=== PATIENT | male | born 1960 | race Caucasian/White ===

== ENCOUNTER 2016-05-04 05:45 | Day surgery (SDC) | payer MEDICARE, SELFPAY ==
[2016-05-04] MEDS ORDERED: Lactated Ringers 1,000 ML IV SCH (06:00)
[2016-05-04 06:24] VITALS: O2SAT 98
[2016-05-04] MEDS ORDERED: Lactated Ringers 1,000 ML IV ONE (07:32)
[2016-05-04] MEDS ORDERED: Ketamine HCl 50 MG/ML IJ ONE (08:00)
[2016-05-04] MEDS ORDERED: DIPRIVAN 200 MG/20 ML IV ONE (08:00)
--- NOTE | 2016-05-04 08:09 | OP ---
SURGERY DATE/TIME: 05/04/2016702 PREOPERATIVE DIAGNOSIS: Rectal bleeding. POSTOPERATIVE DIAGNOSES: 1) Normal EGD. 2) External hemorrhoids. PROCEDURES: 1) EGD. 2) Colonoscopy. SURGEON: Omar Salmon M.D. ANESTHESIA: MAC by Ean Giron CRNA. ESTIMATED BLOOD LOSS: None. SPECIMENS: None. DESCRIPTION OF PROCEDURE: After informed written consent was obtained, the patient was taken to the endoscopy suite. Bite block was inserted and he underwent monitored anesthesia. The endoscope was inserted in the posterior oropharynx and direct visualization the esophagus was traversed. The esophageal mucosal had a normal appearance free of any lesions or defects. The gastroesophageal junction likewise appeared normal upon entering the gastric cavity. The gastric cavity had a normal rugated gastric mucosa free of any lesions or defects. Pylorus was traversed and the first and second portions of the duodenum were within normal limits. Upon withdrawal again all mucosal surfaces were inspected and noted to be free of any lesions or defects. The scope was removed and the scopes were switched. A digital rectal exam showed normal sphincter tone with moderate external hemorrhoids. The colonoscope was then inserted into the rectum and sequentially the entire colonic mucosa was traversed. The ileocecal valve was verified with direct visualization. Upon withdrawal careful mucosal inspection revealed no obvious mucosal abnormalities. Prep was noted to be fair. Prior to withdrawal retroflexion was performed and showed no significant internal lesions. The scope was removed and the patient was transferred to the recovery room in excellent condition.
[2016-05-04 08:53] VITALS: BP 149/90; PULSE 59
== END 2016-05-04 08:57 | disposition home or self-care (01) ==
LOC: SDC 05:45
PROVIDERS: ATTEND Family Medicine
PROC: 0DJ08ZZ Inspection of Upper Intestinal Tract, Via Natural or Artificial Opening Endoscopic (ICD-10-PCS; principal; 2016-05-04)
PROC: 0DJD8ZZ Inspection of Lower Intestinal Tract, Via Natural or Artificial Opening Endoscopic (ICD-10-PCS; 2016-05-04)
DX: K62.5 Hemorrhage of anus and rectum (principal); K64.8 Other hemorrhoids
CPT/HCPCS: 00740; J2704

== ENCOUNTER 2016-08-20 22:52 | Observation (INO) | payer MEDICARE, SELFPAY ==
[2016-08-21] MEDS ORDERED: Sodium Chloride 0.9% 1000 ML 1,000 ML ONE ×2 (00:02→03:30)
--- NOTE | 2016-08-21 00:24 | ERPHSYRPT ---
- History of Present Illness Time Seen by Provider: 08/21/16 00:17 Historian: patient, family Exam Limitations: no limitations Patient Subjective Stated Complaint: vomitting , chest pain, and sinuas ache times 3 months, back pain Triage Nursing Assessment: pt alert and oriented x3, lung sounds clear, patietn sweating profusesly came to ER with vomitting and while in waiting room began sweating and started having chest pain, states he has chest pain frequently at home. patients pulse equal bilateral radius. bowel sounds present x4 , pupils perrla3, patient weak and states hes been trying to drink but unablet o keep food or fluids down Physician History: pt has had prior heart but no CP at this time just sweating and chills and urinary problems and dizziness; denies actual abdominal pain but has tenderness and hx prostate concerns Timing/Duration: day(s), gradual onset Activities at Onset: none Quality: fullness, sharpness, tightness Location: substernal Chest Pain Radiation: no radiation Severity of Pain-Max: moderate Severity of Pain-Current: none Modifying Factors: Improves With: nothing Associated Symptoms: vomiting, abdominal pain, dizziness Nitro Today/Relief: no nitro taken today Aspirin Treatment Today: 81 mg x 1, provided at home Allergies/Adverse Reactions: gabapentin Allergy (Severe, Verified 05/04/16 06:04) Tightness of Throat rash and itch morphine Allergy (Severe, Verified 05/04/16 06:04) Rapid Heart Beat states "like anxiety" Home Medications: Triamterene/Hydrochlorothiazid [Triamterene-Hctz 37.5-25 mg Cp] 0.5 tab PO DAILY 04/06/12 [History] Hydrocodone/APAP 10/325 mg [[place] 10/325 MG Tablet] 1 tab PO QID 04/06/13 [History] Carvedilol 3.125 mg [Coreg 3.125 MG] 3.125 mg PO BID 03/03/16 [History] Carisoprodol 350 mg [Soma 350 mg] 350 mg PO QID 05/02/16 [History] Trazodone HCl 100 mg PO HS 05/02/16 [History] Albuterol Sulfate [Proventil Hfa] 1 ea IH UD 05/04/16 [History] Lisinopril 10 mg [Zestril 10 MG] 5 mg PO DAILY 08/20/16 [History] Smz/Tmp Ds Tablet [Bactrim Ds Tablet] 1 udtab PO BID 08/20/16 [History] Hx Tetanus, Diphtheria Vaccination/Date Given: Yes Hx Influenza Vaccination/Date Given: No Hx Pneumococcal Vaccination/Date Given: No Immunizations Up to Date: Yes - Review of Systems Constitutional: Fever, Chills, Weakness Respiratory: No Symptoms Cardiac: Chest Pain Abdominal/Gastrointestinal: Abdominal Pain, Nausea, Vomiting, Appetite Changes Genitourinary Symptoms: Urgency Musculoskeletal: No Symptoms Skin: No Symptoms - Past Medical History Pertinent Past Medical History: Yes Neurological History: No Pertinent History ENT History: No Pertinent History Cardiac History: High Cholesterol, Hypertension Respiratory History: Asthma Endocrine Medical History: No Pertinent History Musculoskeletal History: Fractures, Osteoporosis GI Medical History: Colitis, Ulcer History: No Pertinent History Psycho-Social History: No Pertinent History Male Reproductive Disorders: No Pertinent History - Past Surgical History Past Surgical History: Yes Neuro Surgical History: No Pertinent History Cardiac: No Pertinent History Respiratory: No Pertinent History Gastrointestinal: Appendectomy Genitourinary: No Pertinent History Musculoskeletal: Orthopedic Surgery, Other Male Surgical History: Vasectomy Other Surgical History: pt has plates to ankle, 6 lower back surgeries, 9 right arm surgeries, 3 left arm surgeries, 2 neck fusions and one cervical discectomy. - Social History Smoking Status: Never smoker Exposure to second hand smoke: No Drug Use: none Patient Lives Alone: No - Nursing Vital Signs Nursing Vital Signs: Initial Vital Signs Temperature 99 F Temperature Source Rectal Pulse Rate [Bilateral Radial] 88 Pulse Rate 86 Respiratory Rate 20 Blood Pressure [Right Arm] 109/71 Pain Intensity 4 - Physical Exam General Appearance: no apparent distress, alert Eye Exam: PERRL/EOMI, eyes nml inspection Ears, Nose, Throat Exam: normal ENT inspection, moist mucous membranes Neck Exam: normal inspection, non-tender, supple, full range of motion Respiratory Exam: normal breath sounds, lungs clear, No respiratory distress Cardiovascular Exam: regular rate/rhythm, normal heart sounds Gastrointestinal/Abdomen Exam: soft, tenderness, No mass Back Exam: normal inspection, No CVA tenderness, No vertebral tenderness Extremity Exam: normal inspection, normal range of motion Neurologic Exam: alert, oriented x 3, cooperative, normal mood/affect, sensation nml, No motor deficits Skin Exam: normal color, warm, diaphoresis SpO2 Interpretation: normal SpO2: 99 Oxygen Delivery: Room Air - Course Nursing assessment & vital signs reviewed: Yes EKG Interpreted by Me: Sinus Rhythm, NORMAL AXIS, NORMAL INTERVALS, Non- specific ST Changes - CT Exams Abdomen/Pelvis CT Interpretation: Tele-radiologist Report, No appendicitis, Other (no AAA) Ordered Tests: Active Orders 24 hr Category Date Time Status EKG-ER Only STAT Care 08/21/16 00:29 Active IV Insertion STAT Care 08/21/16 00:29 Active NPO (ED) STAT Care 08/21/16 00:29 Active Rectal Temperature STAT Care 08/21/16 00:31 Active ABDOMEN AND PELVIS W/0 CONTRAS [CT] Stat Exams 08/21/16 00:30 Taken AMYLASE Stat Lab 08/21/16 00:00 Completed CBC W DIFF Stat Lab 08/21/16 00:00 Completed CMP Stat Lab 08/21/16 00:00 Completed CULTURE,URINE Stat Lab 08/21/16 01:27 Received LIPASE Stat Lab 08/21/16 00:00 Completed Lactic Acid Stat Lab 08/21/16 00:29 Completed TROPONIN Stat Lab 08/21/16 00:00 Completed UA W/ MICROSCOPIC Stat Lab 08/21/16 01:27 Completed Medication Summary Generic Name Dose Route Start Last Admin Trade Name Freq PRN Reason Stop Dose Admin Sodium Chloride 1,000 mls @ 999 mls/hr 08/21/16 00:45 08/21/16 00:40 Sodium Chloride 0.9% 1000 Ml IV 08/21/16 03:45 999 mls/hr .Q1H1M ANTHONY Administration Discontinued Medications Generic Name Dose Route Start Last Admin Trade Name Freq PRN Reason Stop Dose Admin Famotidine 20 mg 08/21/16 00:29 08/21/16 00:39 Pepcid 20 Mg Vial IV 08/21/16 00:30 20 mg STAT ONE Administration Famotidine Confirm 08/21/16 00:37 Pepcid 20 Mg Vial Administered 08/21/16 00:38 Dose 20 mg IV .STK-MED ONE Hydromorphone HCl 1 mg 08/21/16 00:48 08/21/16 00:51 Hydromorphone 1 Mg/Ml Ampule IV 08/21/16 00:49 1 mg STAT ONE Administration Hydromorphone HCl Confirm 08/21/16 00:51 Hydromorphone 1 Mg/Ml Ampule Administered 08/21/16 00:52 Dose 1 mg .ROUTE .STK-MED ONE Sodium Chloride Confirm 08/21/16 00:02 Sodium Chloride 0.9% 1000 Ml Administered 08/21/16 00:03 Dose 1,000 mls @ ud .ROUTE .STK-MED ONE Ceftriaxone Sodium/Dextrose 1 g in 50 mls @ 100 mls/hr 08/21/16 00:31 00:43 Rocephin 1 Gm-D5w 50 Ml Bag IV 08/21/16 01:00 100 mls/hr STAT STA Administration Ceftriaxone Sodium/Dextrose Confirm 08/21/16 00:42 Rocephin 1 Gm-D5w 50 Ml Bag Administered 08/21/16 00:43 Dose 1 g in 50 mls @ ud IV .STK-MED ONE Ondansetron HCl 4 mg 08/21/16 00:29 08/21/16 00:39 Zofran 4 Mg/2 Ml Vial IV 08/21/16 00:30 4 mg STAT ONE Administration Ondansetron HCl Confirm 08/21/16 00:36 Zofran 4 Mg/2 Ml Vial Administered 08/21/16 00:37 Dose 4 mg .ROUTE .STK-MED ONE Pantoprazole Sodium 40 mg 08/21/16 00:29 08/21/16 00:39 Protonix 40mg Tablet PO 08/21/16 00:30 40 mg STAT ONE Administration Pantoprazole Sodium Confirm 08/21/16 00:37 Protonix 40mg Tablet Administered 08/21/16 00:38 Dose 40 mg .ROUTE .STK-MED ONE Lab/Rad Data: Laboratory Result Diagrams 08/21/16 00:00 08/21/16 00:00 Laboratory Results 08/21/16 08/21/16 08/21/16 Range/Units 01:27 00:29 00:00 WBC (4.0-10.5) K/mm3 RBC (4.1-5.6) M/mm3 Hgb (12.5-18.0) gm/dl Hct (42-50) % MCV (78-100) fl MCH (26-32) pg MCHC (32-36) g/dl RDW (11.5-14.0) % Plt Count (150-450) K/mm3 MPV (6-9.5) fl Gran % (36.0-66.0) % Lymphocytes % (24.0-44.0) % Monocytes % (0.0-12.0) % Eosinophils % (0.00-5.0) % Basophils % (0.0-0.4) % Basophils # (0-0.4) Sodium 135 L (136-145) mEq/L Potassium 5.3 H (3.5-5.1) mEq/L Chloride 98 (98-107) mEq/L Carbon Dioxide 24.8 (21-32) mEq/L Anion Gap 17.3 H (5-15) MEQ/L BUN 16 (9-20) mg/dL Creatinine 2.09 H (0.55-1.30) mg/dl Estimated GFR 35 ML/MIN Glucose 128 H (70-110) MG/DL Lactic Acid 1.5 (0.4-2.0) Calcium 9.8 (8.5-10.1) mg/dL Total Bilirubin 0.30 (0.2-1.0) mg/dL AST 23 (15-37) U/L ALT 28 (12-78) U/L Alkaline Phosphatase 97 (46-116) U/L Troponin I < 0.017 (0.000-0.056) ng/ml Serum Total Protein 8.4 H (6.4-8.2) gm/dL Albumin 4.7 (3.4-5.0) g/dL Amylase 61 (25-115) U/L Lipase 133 (73-393) U/L Ur Collection Type VOID Urine Color YELLOW (YELLOW) Urine Appearance CLEAR (CLEAR) Urine pH 5.0 (5-6) Ur Specific [place] 1.020 (1.005-1.025) Urine Protein 30 (Negative) Urine Ketones NEGATIVE (NEGATIVE) Urine Blood NEGATIVE (0-5) Sean/ul Urine Nitrite NEGATIVE (NEGATIVE) Urine Bilirubin NEGATIVE (NEGATIVE) Urine Urobilinogen NORMAL (0-1) mg/dL Ur Leukocyte Esterase NEGATIVE (NEGATIVE) Urine Microscopic RBC 0-2 (0-2) /HPF Urine Microscopic WBC 2-5 (0-5) /HPF Ur Epithelial Cells MODERATE (FEW) /HPF Urine Bacteria MODERATE (NEGATIVE) /HPF Hyaline Casts 2-5 (0-2) /LPF Urine Mucus MODERATE (NEGATIVE) /HPF Urine Glucose NEGATIVE (NEGATIVE) mg/dL Specimen Received 08/21/16 0125 08/21/16 Range/Units 00:00 WBC 12.5 H (4.0-10.5) K/mm3 RBC 4.70 (4.1-5.6) M/mm3 Hgb 14.7 (12.5-18.0) gm/dl Hct 43.7 (42-50) % MCV 93.0 (78-100) fl MCH 31.3 (26-32) pg MCHC 33.6 (32-36) g/dl RDW 12.6 (11.5-14.0) % Plt Count 331 (150-450) K/mm3 MPV 9.8 H (6-9.5) fl Gran % 65.5 (36.0-66.0) % Lymphocytes % 22.7 L (24.0-44.0) % Monocytes % 9.8 (0.0-12.0) % Eosinophils % 1.8 (0.00-5.0) % Basophils % 0.2 (0.0-0.4) % Basophils # 0.02 (0-0.4) Sodium (136-145) mEq/L Potassium (3.5-5.1) mEq/L Chloride (98-107) mEq/L Carbon Dioxide (21-32) mEq/L Anion Gap (5-15) MEQ/L BUN (9-20) mg/dL Creatinine (0.55-1.30) mg/dl Estimated GFR ML/MIN Glucose (70-110) MG/DL Lactic Acid (0.4-2.0) Calcium (8.5-10.1) mg/dL Total Bilirubin (0.2-1.0) mg/dL AST (15-37) U/L ALT (12-78) U/L Alkaline Phosphatase (46-116) U/L Troponin I (0.000-0.056) ng/ml Serum Total Protein (6.4-8.2) gm/dL Albumin (3.4-5.0) g/dL Amylase (25-115) U/L Lipase (73-393) U/L Ur Collection Type Urine Color (YELLOW) Urine Appearance (CLEAR) Urine pH (5-6) Ur Specific [place] (1.005-1.025) Urine Protein (Negative) Urine Ketones (NEGATIVE) Urine Blood (0-5) Sean/ul Urine Nitrite (NEGATIVE) Urine Bilirubin (NEGATIVE) Urine Urobilinogen (0-1) mg/dL Ur Leukocyte Esterase (NEGATIVE) Urine Microscopic RBC (0-2) /HPF Urine Microscopic WBC (0-5) /HPF Ur Epithelial Cells (FEW) /HPF Urine Bacteria (NEGATIVE) /HPF Hyaline Casts (0-2) /LPF Urine Mucus (NEGATIVE) /HPF Urine Glucose (NEGATIVE) mg/dL Specimen Received - Progress Progress: improved, re-examined Air Movement: good Progress Note: 08/21/16 02:50 pt improved but continues to have severe nausea and some pain; discussed with Dr. Sifuentes and will place pt in hosp for observation 08/21/16 02:51 no abd tenderness Blood Culture(s) Obtained: No Antibiotics given: Yes Discussed with : Maria Will see patient in: hospital (observation) Counseled pt/family regarding: lab results, diagnosis, need for follow-up, rad results - Departure Time of Disposition: 02:52 Departure Disposition: Observation Clinical Impression: intractable back pain and nausea Condition: Good Critical Care Time: No
[2016-08-21] MEDS ORDERED: Protonix 40MG Tablet PO ONE (00:29)
[2016-08-21] MEDS ORDERED: Pepcid 20 MG VIAL IV ONE ×2 (00:29→00:37)
[2016-08-21] MEDS ORDERED: Zofran 4 MG/2 ML VIAL IV ONE (00:29)
[2016-08-21] MEDS ORDERED: ROCEPHIN 1 Gm-D5w 50 ml Bag** 1 G/50 ML IVPB IV STA (00:31)
[2016-08-21] MEDS ORDERED: Zofran 4 MG/2 ML VIAL ONE (00:36)
[2016-08-21] MEDS ORDERED: Protonix 40MG Tablet ONE (00:37)
[2016-08-21] MEDS ORDERED: Sodium Chloride 0.9% 1000 ML 2,000 ML ONE (00:38)
[2016-08-21] MEDS: Sodium Chloride 0.9% 1000 ML 1,000 ML IV SCH ×5 (00:39→16:44)
[2016-08-21 00:42] LABS: BASOPHIL % 0.2 % (0.0-0.4); Eosinophil % 1.8 % (0.00-5.0); Granulocytes % 65.5 % (36.0-66.0); Lymphocytes % 22.7 % (24.0-44.0); Mean Corpuscular Hemoglobin 31.3 pg (26-32); Mean Platelet Volume 9.8 fl (6-9.5); Monocytes % 9.8 % (0.0-12.0); Platelet Count 331 K/mm3 (150-450); Red Cell Distribution Width 12.6 % (11.5-14.0); White Blood Count 12.5 K/mm3 (4.0-10.5)
[2016-08-21] MEDS ORDERED: ROCEPHIN 1 Gm-D5w 50 ml Bag** 1 G/50 ML IVPB IV ONE (00:42)
[2016-08-21] MEDS ORDERED: Hydromorphone 1 mg/ml Ampule IV ONE (00:48)
[2016-08-21] MEDS ORDERED: Hydromorphone 1 mg/ml Ampule ONE (00:51)
[2016-08-21 00:52] LABS: ALBUMIN 4.7 g/dL (3.4-5.0); ALKALINE PHOSPHATASE 97 U/L (46-116); ANION GAP 17.3 MEQ/L (5-15); BLOOD UREA NITROGEN 16 mg/dL (9-20); CHLORIDE 98 mEq/L (98-107); Carbon Dioxide 24.8 mEq/L (21-32); Glucose 128 MG/DL (70-110); LIPASE 133 U/L (73-393); Potassium 5.3 mEq/L (3.5-5.1); SGOT/AST 23 U/L (15-37); SGPT/ALT 28 U/L (12-78); SODIUM 135 mEq/L (136-145); TROPONIN < 0.017 ng/ml (0.000-0.056); Total Protein 8.4 gm/dL (6.4-8.2)
[2016-08-21 01:55] LABS: Bilirubin NEGATIVE (NEGATIVE); Blood NEGATIVE Ery/ul (0-5); COMPLETE URINE MICROSCOPIC? YES; Collection Type VOID; Glucose NEGATIVE (NEGATIVE); Leukocyte Esterase NEGATIVE (NEGATIVE)
[2016-08-21 01:56] LABS: ADD URINE CULTURE? YES (NO); Bacteria MODERATE /HPF (NEGATIVE); Epithelial Cells MODERATE /HPF (FEW); Mucus MODERATE /HPF (NEGATIVE)
[2016-08-21] MEDS ORDERED: TYLENOL 325 MG PO PRN (03:27)
[2016-08-21] MEDS ORDERED: Senokot-S Tablet PO PRN (03:27)
[2016-08-21] MEDS ORDERED: Zofran 4 MG/2 ML VIAL IV PRN (03:27)
[2016-08-21] MEDS ORDERED: DILAUDID 2 MG INJECTION IV PRN (03:27)
[2016-08-21] MEDS ORDERED: Sodium Chloride 0.9% 500 ML 500 ML IV SCH (03:27)
[2016-08-21] MEDS ORDERED: MAALOX ES 30 ML UNIT DOSE PO PRN (03:27)
[2016-08-21] MEDS ORDERED: MILK OF MAGNESIA 30 ML PO PRN (03:27)
[2016-08-21] MEDS ORDERED: PROVENTIL COMMON CANISTER IH PRN (04:37)
[2016-08-21 05:55] LABS: BASOPHIL % 0.2 % (0.0-0.4); Eosinophil % 1.8 % (0.00-5.0); Granulocytes % 62.9 % (36.0-66.0); Lymphocytes % 25.1 % (24.0-44.0); Mean Platelet Volume 9.7 fl (6-9.5); Platelet Count 248 K/mm3 (150-450); Red Blood Count 3.99 M/mm3 (4.1-5.6); Red Cell Distribution Width 12.6 % (11.5-14.0)
[2016-08-21 09:03] LABS: Cholesterol 213 mg/dL (100-200); LDL, DIRECT 145 mg/dL (5-99); TRIGLYCERIDE 135 mg/dL (30-200)
[2016-08-21 09:04] LABS: TROPONIN < 0.017 ng/ml (0.000-0.056)
[2016-08-21] MEDS: Pepcid 20 MG VIAL IV SCH ×2 (09:21→21:57)
[2016-08-21] MEDS: Ecotrin 325 MG PO SCH (09:21)
--- NOTE | 2016-08-21 09:47 | XRAY ---
Indication: Abdomen/back pain. Shaking and chills. Multiple contiguous axial images obtained through the abdomen and pelvis without contrast as ordered. Comparison: April 06, 2013. Lung bases demonstrates stable right base calcified granuloma. No infiltrate, consolidation, or effusion. Heart is not enlarged. Noncontrasted stomach and bowel loops appear nonobstructed. Previous appendectomy. No free fluid/air. Remaining liver, gallbladder, pancreas, spleen, adrenal glands, kidneys, ureters, and bladder appear unremarkable for noncontrast exam. Mild aortoiliac calcifications without AAA. Osseous structures intact with mild degenerative changes throughout the spine. Impression: Again no new or acute intra-abdominal/pelvic abnormalities on this noncontrast exam. Comment: Preliminary interpretation was made by [facility]. No discrepancy. CTDI 23.64
[2016-08-21] MEDS: SOMA 350 MG PO SCH ×3 (11:59→21:55)
[2016-08-21] MEDS: Norco 10/325 MG Tablet PO SCH ×3 (11:59→21:54)
[2016-08-21] MEDS: Zestril 10 MG PO SCH (12:05)
[2016-08-21] MEDS: BACTRIM DS TABLET PO SCH ×2 (12:05→21:56)
[2016-08-21] MEDS: Coreg 3.125 MG PO SCH ×2 (12:35→21:55)
[2016-08-21] MEDS: Maxzide-25MG Tablet PO SCH (12:37)
[2016-08-21] MEDS ORDERED: DESYREL 50 MG PO SCH (22:00)
[2016-08-21] MEDS ORDERED: ROCEPHIN 1 Gm-D5w 50 ml Bag** 1 G/50 ML IVPB IV SCH (22:00)
[2016-08-21] MEDS ORDERED: NON-FORMULARY ITEM (Trazodone Hcl [Trazodone Hcl] 100 MG) PO SCH (22:00)
[2016-08-22] MEDS: Sodium Chloride 0.9% 1000 ML 1,000 ML IV SCH ×2 (00:14→07:02)
[2016-08-22 05:30] LABS: BASOPHIL % 0.2 % (0.0-0.4); Eosinophil % 4.1 % (0.00-5.0); Granulocytes % 37.5 % (36.0-66.0); Lymphocytes % 48.6 % (24.0-44.0); Mean Corpuscular Hemoglobin 31.6 pg (26-32); Monocytes % 9.6 % (0.0-12.0); Platelet Count 193 K/mm3 (150-450); Red Blood Count 3.32 M/mm3 (4.1-5.6); Red Cell Distribution Width 12.4 % (11.5-14.0); White Blood Count 4.7 K/mm3 (4.0-10.5)
[2016-08-22 06:06] LABS: ALBUMIN 2.9 g/dL (3.4-5.0); ALKALINE PHOSPHATASE 63 U/L (46-116); BLOOD UREA NITROGEN 8 mg/dL (9-20); Carbon Dioxide 26.8 mEq/L (21-32); Glucose 86 MG/DL (70-110); Potassium 4.4 mEq/L (3.5-5.1); SGOT/AST 15 U/L (15-37); SGPT/ALT 17 U/L (12-78); Total Protein 5.7 gm/dL (6.4-8.2)
[2016-08-22 06:27] LABS: CHLORIDE 108 mEq/L (98-107); SODIUM 140 mEq/L (136-145)
[2016-08-22 06:30] LABS: ANION GAP 9.6 MEQ/L (5-15)
--- NOTE | 2016-08-22 07:48 | PCM.SSS ---
History of Present Illness - Chief Complaint Chief Complaint: intractable back pain with diaphoresis/nausea History of Present Illness: is a 55 year old male who presented to the ER with complaints of nausea, vomiting, low back pain and vertigo. He has been ill for the last week with low grade fever and dizziness, feeling poorly. Feeling much better overnight with hydration, vomiting has resolved and he is keeping down liquids and food. - Review of Systems Constitutional: No Fever, No Chills Respiratory: No Cough, No Short Of Breath Cardiac: No Chest Pain, No Edema, No Syncope Abdominal/Gastrointestinal: Nausea, Vomiting, No Abdominal Pain, No Diarrhea, No Constipation, No Hematemesis, No Hematochezia Genitourinary Symptoms: No Dysuria Musculoskeletal: Back Pain All Other Systems: Reviewed and Negative Medications & Allergies Home Medications: Home Medication List Triamterene/Hydrochlorothiazid [Triamterene-Hctz 37.5-25 mg Cp] 0.5 tab PO DAILY 04/06/12 [History Confirmed 08/20/16] Hydrocodone/APAP 10/325 mg [Ogema 10/325 MG Tablet] 1 tab PO QID 04/06/13 [History Confirmed 08/20/16] Carvedilol 3.125 mg [Coreg 3.125 MG] 3.125 mg PO BID 03/03/16 [History Confirmed 08/20/16] Carisoprodol 350 mg [Soma 350 mg] 350 mg PO QID 05/02/16 [History Confirmed 08/20/16] Trazodone HCl 100 mg PO HS 05/02/16 [History Confirmed 08/20/16] Lisinopril 10 mg [Zestril 10 MG] 5 mg PO DAILY 08/20/16 [History Confirmed 08/20/16] Meclizine HCl 12.5 mg PO TID PRN #20 tablet 08/22/16 [Rx] Ondansetron [Zofran Odt] 8 mg PO TID PRN #10 tab.rapdis 08/22/16 [Rx] Allergies/Adverse Reactions: Allergies Allergy/AdvReac Type Severity Reaction Status Date / Time gabapentin Allergy Severe Tightness Verified 05/04/16 06:04 of Throat morphine Allergy Severe Rapid Verified 05/04/16 06:04 Heart Beat iodine Allergy Verified 08/21/16 07:00 - Past Medical History Past Medical History: Yes Neurological History: No Pertinent History ENT History: No Pertinent History Cardiac History: High Cholesterol, Hypertension Respiratory History: Asthma Endocrine Medical History: No Pertinent History Musculoskelatal History: Fractures, Osteoporosis GI Medical History: Colitis, Ulcer History: No Pertinent History Pyscho-Social History: No Pertinent History Male Reproductive Disorders: No Pertinent History - Past Surgical History Past Surgical History: Yes Neuro Surgical History: No Pertinent History Cardiac History: No Pertinent History Respiratory Surgery: No Pertinent History GI Surgical History: Appendectomy Genitourinary Surgical Hx: No Pertinent History Musculskeletal Surgical Hx: Orthopedic Surgery, Other Male Surgical History: Vasectomy Other Surgical History: pt has plates to ankle, 6 lower back surgeries, 9 right arm surgeries, 3 left arm surgeries, 2 neck fusions and one cervical discectomy. - Social History Smoking Status: Never smoker Exposure to second hand smoke: No Alcohol: None Drug Use: none - Physical Exam Vital Signs: Vital Signs - 24 hr Temp Pulse Resp BP Pulse Ox 08/22/16 06:00 96 08/22/16 04:00 97.9 F 72 16 81/48 96 08/22/16 02:00 95 08/22/16 00:00 98.3 F 79 19 97/47 94 L 08/21/16 22:00 98 08/21/16 20:03 85 16 97 08/21/16 20:00 98.4 F 83 18 95/54 97 08/21/16 17:43 98 08/21/16 15:36 98.6 F 81 18 90/52 98 08/21/16 14:00 97 08/21/16 10:53 98.6 F 86 18 151/90 97 08/21/16 09:58 93 L 08/21/16 09:00 97.1 F 77 18 118/79 93 L General Appearance: no apparent distress, alert Eye Exam: PERRL/EOMI, eyes nml inspection Respiratory Exam: normal breath sounds, lungs clear, No respiratory distress Cardiovascular Exam: regular rate/rhythm, normal heart sounds, normal peripheral pulses Gastrointestinal/Abdomen Exam: soft, normal bowel sounds, No tenderness, No mass Extremity Exam: normal inspection, normal range of motion, pelvis stable Skin Exam: normal color, warm, dry, No rash Results - Labs Lab/Micro Results: Lab Results-Last 24 Hours 08/21/16 08/22/16 08/22/16 Range/Units 05:10 05:20 05:20 WBC (4.0-10.5) K/mm3 RBC (4.1-5.6) M/mm3 Hgb (12.5-18.0) gm/dl Hct (42-50) % MCV (78-100) fl MCH (26-32) pg MCHC (32-36) g/dl RDW (11.5-14.0) % Plt Count (150-450) K/mm3 MPV (6-9.5) fl Gran % (36.0-66.0) % Lymphocytes % (24.0-44.0) % Monocytes % (0.0-12.0) % Eosinophils % (0.00-5.0) % Basophils % (0.0-0.4) % Basophils # (0-0.4) Sodium 140 (136-145) mEq/L Potassium 4.4 (3.5-5.1) mEq/L Chloride 108 H (98-107) mEq/L Carbon Dioxide 26.8 (21-32) mEq/L Anion Gap 9.6 (5-15) MEQ/L BUN 8 L (9-20) mg/dL Creatinine 0.87 (0.55-1.30) mg/dl Estimated GFR > 60 ML/MIN Glucose 86 (70-110) MG/DL Calcium 8.1 L (8.5-10.1) mg/dL Total Bilirubin 0.20 (0.2-1.0) mg/dL AST 15 (15-37) U/L ALT 17 (12-78) U/L Alkaline Phosphatase 63 (46-116) U/L Troponin I < 0.017 < 0.017 (0.000-0.056) ng/ml Serum Total Protein 5.7 L (6.4-8.2) gm/dL Albumin 2.9 L (3.4-5.0) g/dL Triglycerides 135 (30-200) mg/dL Cholesterol 213 H (100-200) mg/dL LDL Cholesterol 145 H (5-99) mg/dL HDL Cholesterol 42 (35-60) mg/dL Heart Disease Risk Ratio 5.1 08/22/16 Range/Units 05:20 WBC 4.7 (4.0-10.5) K/mm3 RBC 3.32 L (4.1-5.6) M/mm3 Hgb 10.5 L (12.5-18.0) gm/dl Hct 32.2 L (42-50) % MCV 97.0 (78-100) fl MCH 31.6 (26-32) pg MCHC 32.6 (32-36) g/dl RDW 12.4 (11.5-14.0) % Plt Count 193 (150-450) K/mm3 MPV 9.0 (6-9.5) fl Gran % 37.5 (36.0-66.0) % Lymphocytes % 48.6 H (24.0-44.0) % Monocytes % 9.6 (0.0-12.0) % Eosinophils % 4.1 (0.00-5.0) % Basophils % 0.2 (0.0-0.4) % Basophils # 0.01 (0-0.4) Sodium (136-145) mEq/L Potassium (3.5-5.1) mEq/L Chloride (98-107) mEq/L Carbon Dioxide (21-32) mEq/L Anion Gap (5-15) MEQ/L BUN (9-20) mg/dL Creatinine (0.55-1.30) mg/dl Estimated GFR ML/MIN Glucose (70-110) MG/DL Calcium (8.5-10.1) mg/dL Total Bilirubin (0.2-1.0) mg/dL AST (15-37) U/L ALT (12-78) U/L Alkaline Phosphatase (46-116) U/L Troponin I (0.000-0.056) ng/ml Serum Total Protein (6.4-8.2) gm/dL Albumin (3.4-5.0) g/dL Triglycerides (30-200) mg/dL Cholesterol (100-200) mg/dL LDL Cholesterol (5-99) mg/dL HDL Cholesterol (35-60) mg/dL Heart Disease Risk Ratio - Other Procedures and Tests Respiratory Therapy 08/23/16 05:00 EKG ROUTINE 08/24/16 05:00 EKG ROUTINE Assessment/Plan (1) Vomiting Current Visit: Yes Status: Acute Assessment & Plan: resolved, likely secondary to his vertigo Code(s): R11.10 - VOMITING, UNSPECIFIED (2) Vertigo Current Visit: Yes Status: Acute Assessment & Plan: improved, likely related to viral illness Code(s): R42 - DIZZINESS AND GIDDINESS (3) Chest pain Current Visit: No Status: Acute Qualifiers: Chest pain type: unspecified Qualified Code(s): R07.9 - Chest pain, unspecified Assessment & Plan: MO ruled out, has no pain at this time Code(s): R07.9 - CHEST PAIN, UNSPECIFIED Hospital Summary - Vitals & Intake/Output Vital Signs: Vital Signs Temperature 97.9 F 08/22/16 04:00 Pulse Rate 72 08/22/16 04:00 Respiratory Rate 16 08/22/16 04:00 Blood Pressure 81/48 08/22/16 04:00 O2 Sat by Pulse Oximetry 96 08/22/16 06:00 Intake & Output: Intake & Output 08/19/16 08/20/16 08/21/16 08/22/16 11:59 11:59 11:59 11:59 Intake Total 220 5240 Output Total 1150 4600 Balance -930 640 Weight 85.457 kg 89.086 kg - Lab Result Diagrams: 08/22/16 05:20 08/22/16 05:20 Lab Results-Last 24 Hrs: Lab Results-Last 24 Hours 08/21/16 08/22/16 08/22/16 Range/Units 05:10 05:20 05:20 WBC (4.0-10.5) K/mm3 RBC (4.1-5.6) M/mm3 Hgb (12.5-18.0) gm/dl Hct (42-50) % MCV (78-100) fl MCH (26-32) pg MCHC (32-36) g/dl RDW (11.5-14.0) % Plt Count (150-450) K/mm3 MPV (6-9.5) fl Gran % (36.0-66.0) % Lymphocytes % (24.0-44.0) % Monocytes % (0.0-12.0) % Eosinophils % (0.00-5.0) % Basophils % (0.0-0.4) % Basophils # (0-0.4) Sodium 140 (136-145) mEq/L Potassium 4.4 (3.5-5.1) mEq/L Chloride 108 H (98-107) mEq/L Carbon Dioxide 26.8 (21-32) mEq/L Anion Gap 9.6 (5-15) MEQ/L BUN 8 L (9-20) mg/dL Creatinine 0.87 (0.55-1.30) mg/dl Estimated GFR > 60 ML/MIN Glucose 86 (70-110) MG/DL Calcium 8.1 L (8.5-10.1) mg/dL Total Bilirubin 0.20 (0.2-1.0) mg/dL AST 15 (15-37) U/L ALT 17 (12-78) U/L Alkaline Phosphatase 63 (46-116) U/L Troponin I < 0.017 < 0.017 (0.000-0.056) ng/ml Serum Total Protein 5.7 L (6.4-8.2) gm/dL Albumin 2.9 L (3.4-5.0) g/dL Triglycerides 135 (30-200) mg/dL Cholesterol 213 H (100-200) mg/dL LDL Cholesterol 145 H (5-99) mg/dL HDL Cholesterol 42 (35-60) mg/dL Heart Disease Risk Ratio 5.1 / Range/Units 05:20 WBC 4.7 (4.0-10.5) K/mm3 RBC 3.32 L (4.1-5.6) M/mm3 Hgb 10.5 L (12.5-18.0) gm/dl Hct 32.2 L (42-50) % MCV 97.0 (78-100) fl MCH 31.6 (26-32) pg MCHC 32.6 (32-36) g/dl RDW 12.4 (11.5-14.0) % Plt Count 193 (150-450) K/mm3 MPV 9.0 (6-9.5) fl Gran % 37.5 (36.0-66.0) % Lymphocytes % 48.6 H (24.0-44.0) % Monocytes % 9.6 (0.0-12.0) % Eosinophils % 4.1 (0.00-5.0) % Basophils % 0.2 (0.0-0.4) % Basophils # 0.01 (0-0.4) Sodium (136-145) mEq/L Potassium (3.5-5.1) mEq/L Chloride (98-107) mEq/L Carbon Dioxide (21-32) mEq/L Anion Gap (5-15) MEQ/L BUN (9-20) mg/dL Creatinine (0.55-1.30) mg/dl Estimated GFR ML/MIN Glucose (70-110) MG/DL Calcium (8.5-10.1) mg/dL Total Bilirubin (0.2-1.0) mg/dL AST (15-37) U/L ALT (12-78) U/L Alkaline Phosphatase (46-116) U/L Troponin I (0.000-0.056) ng/ml Serum Total Protein (6.4-8.2) gm/dL Albumin (3.4-5.0) g/dL Triglycerides (30-200) mg/dL Cholesterol (100-200) mg/dL LDL Cholesterol (5-99) mg/dL HDL Cholesterol (35-60) mg/dL Heart Disease Risk Ratio - Procedures and Test Procedures and Tests throughout Hospitalization: Therapy Orders & Screens 08/21/16 04:37 Respiratory MDI UD Comment: albuterol mdi q4prn Diagnosis: intractable back pain with diaphoresis/nausea 08/21/16 07:48 EKG ROUTINE Comment: Diagnosis: intractable back pain with diaphoresis/nausea 08/22/16 05:00 EKG ROUTINE Comment: Diagnosis: intractable back pain with diaphoresis/nausea 08/23/16 05:00 EKG ROUTINE Comment: Diagnosis: intractable back pain with diaphoresis/nausea 08/24/16 05:00 EKG ROUTINE Comment: Diagnosis: intractable back pain with diaphoresis/nausea - Discharge Disposition: Home, Self-Care Condition: Good Prescriptions: New Meclizine HCl 12.5 mg PO TID PRN #20 tablet Ondansetron [Zofran Odt] 8 mg PO TID PRN #10 tab.rapdis Continue Triamterene/Hydrochlorothiazid [Triamterene-Hctz 37.5-25 mg Cp] 0.5 tab PO DAILY Hydrocodone/APAP 10/325 mg [Ogema 10/325 MG Tablet] 1 tab PO QID Carvedilol 3.125 mg [Coreg 3.125 MG] 3.125 mg PO BID Trazodone HCl 100 mg PO HS Carisoprodol 350 mg [Soma 350 mg] 350 mg PO QID Lisinopril 10 mg [Zestril 10 MG] 5 mg PO DAILY Discontinued Albuterol Sulfate [Proventil Hfa] 1 ea IH UD Smz/Tmp Ds Tablet [Bactrim Ds Tablet] 1 udtab PO BID Follow up with: KYLAH SAENZ MD [Primary Care Provider] -
[2016-08-22] MEDS: Coreg 3.125 MG PO SCH (08:46)
[2016-08-22] MEDS: Ecotrin 325 MG PO SCH (08:47)
[2016-08-22] MEDS: SOMA 350 MG PO SCH (08:47)
[2016-08-22] MEDS: BACTRIM DS TABLET PO SCH (08:47)
[2016-08-22] MEDS: Norco 10/325 MG Tablet PO SCH (08:47)
[2016-08-22] MEDS: Pepcid 20 MG VIAL IV SCH (08:48)
[2016-08-22] MEDS: Maxzide-25MG Tablet PO SCH (08:49)
[2016-08-22] MEDS: Zestril 10 MG PO SCH (08:49)
--- NOTE | 2016-08-22 09:32 | HP ---
CHIEF COMPLAINT: Nausea, vomiting, back pain radiating up to shoulder area. HISTORY OF PRESENT ILLNESS: The patient is a 55 year-old white male patient who reports that he has been having problems with gassy abdominal discomfort the day before. He began having problems with nausea and vomiting. He reports that it stirred up his back pain radiating up to his mid back area from the lumbar area. The patient does have history of chronic back pain. PAST MEDICAL/SURGICAL HISTORY: Otherwise significant for hyperlipidemia, hypertension, asthma, and osteoporosis. He had colitis and ulcers. HOME MEDICATIONS: Includes Maxzide 25 daily, [place] 10/325 mg four times a day, carvedilol 3.125 mg b.i.d., Soma 350 mg four times a day, trazodone 100 mg at night, Albuterol nebulizer PRN, lisinopril 10 mg tablets daily. He is on Bactrim DS 1 tablet b.i.d. for unknown reason. ALLERGIES: GABAPENTIN, MORPHINE. PHYSICAL EXAMINATION: Revealed a well nourished, well developed 55 year-old white male patient reporting that he is feeling better this morning, has somewhat of an appetite. He reports that the broth was really good this morning. His initial vital signs showed temperature 99F rectal with a pulse of 88, respiratory rate 20, blood pressure 109/71. HEENT: Normocephalic, atraumatic. Pupils equal round reactive to light. Extraocular movements intact. Oropharynx is pink and moist. NECK: Supple without lymphadenopathy, thyromegaly or JVD. CHEST: Clear to auscultation with good air movement bilaterally. HEART: Regular rate and rhythm without murmurs, rubs or gallops. ABDOMEN: Soft, nontender, nondistended without hepatosplenomegaly or masses. EXTREMITIES: Without clubbing, cyanosis or edema. NEUROLOGIC: The patient is alert and oriented x3. No focal deficits noted. LAB DATA AND TESTS: The patient's laboratory studies thus far have shown a lactic acid which was 0.9. He had a troponin less than 0.017. His lipid panel showed LDL cholesterol 145. He has a normal sinus rhythm on EKG with no significant ST-T wave changes. He had CBC which was essentially normal. Hemoglobin was slightly low at 12.4. His sugar was 128, BUN 16, creatinine 2.09. His sodium 135, potassium 5.3. Liver enzymes were normal. Amylase and lipase were normal. Lactic acid initially was 1.5. He had CT scan abdomen and pelvis which showed no acute findings. ASSESSMENT: The patient with nausea and vomiting and abdominal pain and back pain. He has been admitted to the hospital receiving IV fluids. He was given Rocephin empirically. He was continued on his usual home medications. We will advance his diet as tolerated with the anticipation that he may likely be able to go home tomorrow.
[2016-08-22] MEDS ORDERED: [UNRECOGNIZED DRUG - OTHER] PO SCH (10:00)
[2016-08-22 11:52] VITALS: BP 103/69; PULSE 83; O2SAT 94
== END 2016-08-22 12:15 | disposition home or self-care (01) ==
LOC: ED 22:52 → MED SURG 08-21 03:26
PROVIDERS: ADMIT Family Medicine; ATTEND Family Medicine
DX: R42 Dizziness and giddiness (principal); R11.10 Vomiting, unspecified; R07.9 Chest pain, unspecified; M54.5 Low back pain; I10 Essential (primary) hypertension; M81.0 Age-related osteoporosis without current pathological fracture; Z79.899 Other long term (current) drug therapy
CPT/HCPCS: 36000; 36415; 74176; 80053; 80061; 81000; 82150; 83605; 83690; 83721; 84484; 85025; 87086; 93005; 93268; 94760; 96360; 96361; 96365; 96374; 96375; 99285; G0378; J0696; J1170; J2405; A9270-GY

== ENCOUNTER 2016-09-19 22:37 | Observation (INO) | payer MEDICARE, SELFPAY ==
[2016-09-19] MEDS: Nitrostat 0.4 MG Tablet SL PRN ×2 (23:06→23:43)
[2016-09-19] MEDS ORDERED: ECOTRIN 81 MG PO ONE (23:08)
[2016-09-19] MEDS ORDERED: LOPRESSOR 5 MG/5 ML INJECTION IV ONE ×2 (23:27→23:38)
[2016-09-19] MEDS ORDERED: NITRO-BID 2% UD PACKETS TOP ONE (23:27)
--- NOTE | 2016-09-19 23:29 | ERPHSYRPT ---
- History of Present Illness Time Seen by Provider: 09/19/16 23:00 Historian: patient Exam Limitations: clinical condition Patient Subjective Stated Complaint: pt states his blood pressure has been high at home. states it was over 200 at home. states he has chest pain 5/10 which is not unusual for him. also c/o shortness of breath. states he became nauseated tonight. Triage Nursing Assessment: pt awake and alert, asnwers questions appopr. pt ambulatory with steady gait noted. respirations nonlabored with lungs cta. no edema noted to extremties. Physician History: PATIENT WITH A HISTORY OF HYPERTENSION COMPLAINS OF ELEVATED BLOOD PRESSURE SINCE 8PM LAST NIGHT ASSOCIATED WITH SUBSTERNAL CHEST PRESSURE, PAIN SCALE 8/10 , ASSOCIATED WITH DIZZINESS. DENIES PALPITATIONS, DIAPHORESIS. Timing/Duration: today Activities at Onset: none Quality: pressure Location: substernal Chest Pain Radiation: no radiation Severity of Pain-Max: moderate Severity of Pain-Current: moderate Associated Symptoms: dizziness, other (HEADACHE) Nitro Today/Relief: no nitro taken today Aspirin Treatment Today: no aspirin today Allergies/Adverse Reactions: gabapentin Allergy (Severe, Verified 09/19/16 23:02) Tightness of Throat rash and itch morphine Allergy (Severe, Verified 09/19/16 23:02) Rapid Heart Beat states "like anxiety" iodine Allergy (Verified 09/19/16 23:02) Home Medications: Hydrocodone/APAP 10/325 mg [[place] 10/325 MG Tablet] 1 tab PO QID 04/06/13 [History] Carvedilol 3.125 mg [Coreg 3.125 MG] 3.125 mg PO BID 03/03/16 [History] Carisoprodol 350 mg [Soma 350 mg] 350 mg PO QID 05/02/16 [History] Lisinopril 10 mg [Zestril 10 MG] 10 mg PO DAILY 08/20/16 [History] Hx Tetanus, Diphtheria Vaccination/Date Given: Yes Hx Influenza Vaccination/Date Given: No Hx Pneumococcal Vaccination/Date Given: No - Review of Systems Constitutional: No Fever, No Chills Eyes: No Symptoms Ears, Nose, & Throat: No Symptoms Respiratory: No Symptoms, No Cough, No Dyspnea Cardiac: Chest Pain, No Edema, No Syncope Abdominal/Gastrointestinal: No Abdominal Pain, No Nausea, No Vomiting, No Diarrhea Genitourinary Symptoms: No Symptoms, No Dysuria Musculoskeletal: No Symptoms, No Back Pain, No Neck Pain Skin: No Symptoms, No Rash Neurological: Dizziness, No Focal Weakness, No Sensory Changes Psychological: No Symptoms Endocrine: No Symptoms All Other Systems: Reviewed and Negative - Past Medical History Pertinent Past Medical History: Yes Neurological History: No Pertinent History ENT History: No Pertinent History Cardiac History: High Cholesterol, Hypertension Respiratory History: Asthma Endocrine Medical History: No Pertinent History Musculoskeletal History: Fractures, Osteoporosis GI Medical History: Colitis, Ulcer History: No Pertinent History Psycho-Social History: No Pertinent History Male Reproductive Disorders: No Pertinent History - Past Surgical History Past Surgical History: Yes Neuro Surgical History: No Pertinent History Cardiac: No Pertinent History Respiratory: No Pertinent History Gastrointestinal: Appendectomy Genitourinary: No Pertinent History Musculoskeletal: Orthopedic Surgery, Other Male Surgical History: Vasectomy Other Surgical History: pt has plates to ankle, 6 lower back surgeries, 9 right arm surgeries, 3 left arm surgeries, 2 neck fusions and one cervical discectomy. - Social History Smoking Status: Never smoker Exposure to second hand smoke: No Drug Use: none Patient Lives Alone: Yes - Nursing Vital Signs Nursing Vital Signs: Initial Vital Signs Temperature 97.8 F Temperature Source Oral Pulse Rate 74 Respiratory Rate 16 Blood Pressure [] 130/76 Blood Pressure 146/99 Pain Intensity 5 - Physical Exam General Appearance: no apparent distress, alert Eye Exam: PERRL/EOMI, eyes nml inspection Ears, Nose, Throat Exam: normal ENT inspection, moist mucous membranes Neck Exam: normal inspection, non-tender, supple, full range of motion Respiratory Exam: normal breath sounds, lungs clear, No respiratory distress Cardiovascular Exam: regular rate/rhythm, normal heart sounds Gastrointestinal/Abdomen Exam: soft, normal bowel sounds, No tenderness, No mass Back Exam: normal inspection, normal range of motion, No CVA tenderness, No vertebral tenderness Extremity Exam: normal inspection, normal range of motion Neurologic Exam: alert, oriented x 3, cooperative, normal mood/affect, sensation nml, No motor deficits Skin Exam: normal color, warm, dry SpO2 Interpretation: normal SpO2: 98 Oxygen Delivery: Room Air - Course EKG Interpreted by Me: RATE, Sinus Rhythm, NORMAL AXIS - Radiology Exams Chest X-ray Interpretation: Interpreted by me, Negative Ordered Tests: Active Orders 24 hr Category Date Time Status Up With Assistance ROUTINE Activity 09/20/16 01:19 Ordered Admission/Status Order ROUTINE Care 09/20/16 01:18 Ordered Call Admit Doctor for Orders ROUTINE Care 09/20/16 01:17 Ordered Trimmer Helper STAT Care 09/19/16 23:27 Active Code Status Order ROUTINE Care 09/20/16 01:18 Ordered EKG-ER Only STAT Care 09/19/16 23:27 Active IV Care Q6H Care 09/20/16 01:18 Ordered IV Insertion STAT Care 09/19/16 23:27 Active Implement Chest Pain Pathway ROUTINE Care 09/20/16 01:18 Ordered Oxygen-ED Only NASAL CANNULA 2 lpm Care 09/19/16 23:27 Active [place] ROUTINE Care 09/20/16 01:18 Ordered Telemetry ROUTINE Care 09/20/16 01:18 Ordered Vital Signs Q4H Care 09/20/16 01:17 Ordered Weight,Daily 0600 Care 09/20/16 01:18 Ordered Cardiac Diet Diet 09/20/16 Breakfast Ordered CHEST 1 VIEW (PORTABLE) Stat Exams 09/19/16 23:28 Taken CBC W DIFF Stat Lab 09/19/16 22:55 Completed CMP Stat Lab 09/19/16 22:55 Completed D-DIMER QUANTITATION Stat Lab 09/20/16 00:00 Completed LIPID PROFILE AM.LAB Lab 09/20/16 04:00 Ordered PROTIME WITH INR Stat Lab 09/19/16 22:55 Completed TROPONIN Q3H Lab 09/19/16 22:55 Completed TROPONIN Q3H Lab 09/20/16 02:30 Ordered TROPONIN Q3H Lab 09/20/16 05:30 Ordered TROPONIN Q3H Lab 09/20/16 08:30 Ordered TROPONIN Q3H Lab 09/20/16 11:30 Ordered EKG Q8HX2,QAMX3,PRN RT 09/20/16 01:18 Ordered Pulse Oximetry Q4H RT 09/20/16 01:18 Ordered Transfer Order Routine Transfer 09/20/16 01:16 Ordered Medication Summary Generic Name Dose Route Start Last Admin Trade Name Freq PRN Reason Stop Dose Admin Acetaminophen 650 mg 09/20/16 01:17 Tylenol 325 Mg PO 10/20/16 01:16 Q4H PRN PRN PAIN AND/OR FEVER Al Hydrox/Mg Hydrox/Simethicone 30 ml 09/20/16 01:17 Maalox Es 30 Ml Unit Dose PO 10/20/16 01:16 Q4H PRN PRN INDIGESTION Aspirin 325 mg 09/20/16 10:00 Ecotrin 325 Mg PO 10/20/16 09:59 DAILY [facility] Carisoprodol 350 mg 09/20/16 10:00 Soma 350 Mg PO 10/20/16 09:59 QID [facility] Carvedilol 3.125 mg 09/20/16 10:00 Coreg 3.125 Mg PO 10/20/16 09:59 BID [facility] Enoxaparin Sodium 80 mg 09/20/16 10:00 Enoxaparin Sodium SQ 10/20/16 09:59 BID [facility] Fentanyl Citrate 50 mcg 09/20/16 01:22 Sublimaze 100 Mcg/2 Ml IV 09/25/16 01:21 Q4H PRN PRN SEVERE PAIN Sodium Chloride 1,000 mls @ 100 mls/hr 09/19/16 23:30 09/19/16 23:43 Sodium Chloride 0.9% 1000 Ml IV 10/19/16 23:29 100 mls/hr .Q10H ANTHONY Administration Sodium Chloride 500 mls @ 50 mls/hr 09/20/16 01:30 Sodium Chloride 0.9% 500 Ml IV 10/20/16 01:29 .Q10H ANTHONY Lisinopril 10 mg 09/20/16 10:00 Zestril 10 Mg PO 10/20/16 09:59 DAILY [facility] Magnesium Hydroxide 30 - 60 ml 09/20/16 01:17 Milk Of Magnesia 30 Ml PO 10/20/16 01:16 QDP PRN CONSTIPATION Nitroglycerin 0.4 mg 09/19/16 23:03 09/19/16 23:43 Nitrostat 0.4 Mg Tablet SL 10/19/16 23:02 0.4 mg Q5MIN PRN MR X 3 PRN Administration CHEST PAIN Nitroglycerin 0.4 mg 09/20/16 01:17 Nitrostat 0.4 Mg Tablet SL 10/20/16 01:16 .Q5MIN PRN CHEST PAIN Nitroglycerin 1 gm 09/20/16 06:00 Nitro-Bid 2% Ud Packets TOP 10/20/16 05:59 Q8HT NATHONY Ondansetron HCl 4 mg 09/20/16 01:17 Zofran 4 Mg/2 Ml Vial IV 10/20/16 01:16 Q4H PRN PRN NAUSEA/VOMITING Senna/Docusate Sodium 2 udtab 09/20/16 01:17 Senokot-S Tablet PO 10/20/16 01:16 BID PRN PRN CONSTIPATION Discontinued Medications Generic Name Dose Route Start Last Admin Trade Name Freq PRN Reason Stop Dose Admin Aspirin 325 mg 09/20/16 22:00 Ecotrin 325 Mg PO 10/20/16 21:59 HS ANTHONY Aspirin 81 mg 09/19/16 23:08 09/19/16 23:09 Ecotrin 81 Mg PO 09/19/16 23:09 324 mg 1XONLY ONE Administration Carisoprodol 350 mg 09/20/16 01:07 Soma 350 Mg PO 09/20/16 01:08 STAT ONE Fentanyl Citrate 50 mcg 09/19/16 23:35 09/19/16 23:46 Sublimaze 100 Mcg/2 Ml IV 09/19/16 23:36 50 mcg STAT ONE Administration Fentanyl Citrate Confirm 09/19/16 23:38 Sublimaze 100 Mcg/2 Ml Administered 09/19/16 23:39 Dose 100 mcg .ROUTE .STK-MED ONE Metoprolol Tartrate 5 mg 09/19/16 23:27 09/19/16 23:43 Lopressor 5 Mg/5 Ml Injection IV 09/19/16 23:28 5 mg STAT ONE Administration Metoprolol Tartrate Confirm 09/19/16 23:38 Lopressor 5 Mg/5 Ml Injection Administered 09/19/16 23:39 Dose 5 mg IV .STK-MED ONE Nitroglycerin 1 gm 09/19/16 23:27 09/19/16 23:41 Nitro-Bid 2% Ud Packets TOP 09/19/16 23:28 1 gm STAT ONE Administration Nitroglycerin 0.4 mg 09/19/16 23:36 09/20/16 00:23 Nitrostat 0.4 Mg (Ed) SL 09/19/16 23:37 Not Given STAT ONE Nitroglycerin Confirm 09/19/16 23:38 Nitro-Bid 2% Ud Packets Administered 09/19/16 23:39 Dose 1 gm .ROUTE .STK-MED ONE Nitroglycerin Confirm 09/19/16 23:38 Nitrostat 0.4 Mg (Ed) Administered 09/19/16 23:39 Dose 0.8 mg SL .STK-MED ONE Lab/Rad Data: Laboratory Result Diagrams 09/19/16 22:55 09/19/16 22:55 Laboratory Results 09/20/16 09/19/16 09/19/16 Range/Units 00:00 22:55 22:55 WBC (4.0-10.5) K/mm3 RBC (4.1-5.6) M/mm3 Hgb (12.5-18.0) gm/dl Hct (42-50) % MCV (78-100) fl MCH (26-32) pg MCHC (32-36) g/dl RDW (11.5-14.0) % Plt Count (150-450) K/mm3 MPV (6-9.5) fl Gran % (36.0-66.0) % Lymphocytes % (24.0-44.0) % Monocytes % (0.0-12.0) % Eosinophils % (0.00-5.0) % Basophils % (0.0-0.4) % Basophils # (0-0.4) INR 1.04 (0.8-3.0) D-Dimer 854 H* (0-500) ng/mL Sodium (136-145) mEq/L Potassium (3.5-5.1) mEq/L Chloride (98-107) mEq/L Carbon Dioxide (21-32) mEq/L Anion Gap (5-15) MEQ/L BUN (9-20) mg/dL Creatinine (0.55-1.30) mg/dl Estimated GFR ML/MIN Glucose (70-110) MG/DL Calcium (8.5-10.1) mg/dL Total Bilirubin (0.2-1.0) mg/dL AST (15-37) U/L ALT (12-78) U/L Alkaline Phosphatase (46-116) U/L Troponin I < 0.017 (0.000-0.056) ng/ml Serum Total Protein (6.4-8.2) gm/dL Albumin (3.4-5.0) g/dL 09/19/16 09/19/16 Range/Units 22:55 22:55 WBC 9.5 (4.0-10.5) K/mm3 RBC 4.32 (4.1-5.6) M/mm3 Hgb 13.5 (12.5-18.0) gm/dl Hct 40.2 L (42-50) % MCV 93.1 (78-100) fl MCH 31.3 (26-32) pg MCHC 33.6 (32-36) g/dl RDW 12.1 (11.5-14.0) % Plt Count 264 (150-450) K/mm3 MPV 10.1 H (6-9.5) fl Gran % 55.1 (36.0-66.0) % Lymphocytes % 31.5 (24.0-44.0) % Monocytes % 8.9 (0.0-12.0) % Eosinophils % 4.2 (0.00-5.0) % Basophils % 0.3 (0.0-0.4) % Basophils # 0.03 (0-0.4) INR (0.8-3.0) D-Dimer (0-500) ng/mL Sodium 136 (136-145) mEq/L Potassium 3.7 (3.5-5.1) mEq/L Chloride 98 (98-107) mEq/L Carbon Dioxide 26.8 (21-32) mEq/L Anion Gap 15.0 (5-15) MEQ/L BUN 8 L (9-20) mg/dL Creatinine 1.21 (0.55-1.30) mg/dl Estimated GFR > 60 ML/MIN Glucose 120 H (70-110) MG/DL Calcium 9.8 (8.5-10.1) mg/dL Total Bilirubin 0.30 (0.2-1.0) mg/dL AST 23 (15-37) U/L ALT 28 (12-78) U/L Alkaline Phosphatase 101 (46-116) U/L Troponin I (0.000-0.056) ng/ml Serum Total Protein 8.3 H (6.4-8.2) gm/dL Albumin 4.5 (3.4-5.0) g/dL - Progress Progress Note: 09/20/16 01:14 PATIENT GIVEN NTG 0.4MG SL, NITROPASTE 1" ANTERIOR CHEST WALL, LOPRESSOR 5MG, FENTANYL 50MCG IV Discussed with : Luis Antonio (DISCUSSED WITH DR SAENZ AT 0115 FOR OBSERVATION) - Departure Time of Disposition: 01:25 Departure Disposition: Observation Clinical Impression: ACUTE CHEST PAIN Condition: Stable Critical Care Time: No Referrals: KYLAH SAENZ MD [Primary Care Provider] -
[2016-09-19] MEDS ORDERED: SUBLIMAZE 100 MCG/2 ML IV ONE (23:35)
[2016-09-19] MEDS ORDERED: Nitrostat 0.4 MG (ED) SL ONE ×2 (23:36→23:38)
[2016-09-19 23:38] LABS: BASOPHIL % 0.3 % (0.0-0.4); Eosinophil % 4.2 % (0.00-5.0); Granulocytes % 55.1 % (36.0-66.0); Lymphocytes % 31.5 % (24.0-44.0); Mean Cell Volume 93.1 fl (78-100); Mean Corpuscular Hemoglobin 31.3 pg (26-32); Mean Platelet Volume 10.1 fl (6-9.5); Monocytes % 8.9 % (0.0-12.0); Platelet Count 264 K/mm3 (150-450); Red Blood Count 4.32 M/mm3 (4.1-5.6); Red Cell Distribution Width 12.1 % (11.5-14.0); White Blood Count 9.5 K/mm3 (4.0-10.5)
[2016-09-19] MEDS ORDERED: SUBLIMAZE 100 MCG/2 ML ONE (23:38)
[2016-09-19] MEDS ORDERED: NITRO-BID 2% UD PACKETS ONE (23:38)
[2016-09-19] MEDS ORDERED: Sodium Chloride 0.9% 1000 ML 1,000 ML ONE (23:39)
[2016-09-19] MEDS: Sodium Chloride 0.9% 1000 ML 1,000 ML IV SCH (23:43)
[2016-09-20 00:09] LABS: ALBUMIN 4.5 g/dL (3.4-5.0); ALKALINE PHOSPHATASE 101 U/L (46-116); BLOOD UREA NITROGEN 8 mg/dL (9-20); CHLORIDE 98 mEq/L (98-107); Carbon Dioxide 26.8 mEq/L (21-32); Glucose 120 MG/DL (70-110); Potassium 3.7 mEq/L (3.5-5.1); SGOT/AST 23 U/L (15-37); SGPT/ALT 28 U/L (12-78); SODIUM 136 mEq/L (136-145); Total Protein 8.3 gm/dL (6.4-8.2)
[2016-09-20 00:15] LABS: INR 1.04 (0.8-3.0); PROTIME 11.8 SECONDS (8.83-12.87)
[2016-09-20] MEDS ORDERED: SOMA 350 MG PO ONE (01:07)
[2016-09-20] MEDS ORDERED: TYLENOL 325 MG PO PRN (01:17)
[2016-09-20] MEDS ORDERED: MAALOX ES 30 ML UNIT DOSE PO PRN (01:17)
[2016-09-20] MEDS ORDERED: Zofran 4 MG/2 ML VIAL IV PRN (01:17)
[2016-09-20] MEDS ORDERED: MILK OF MAGNESIA 30 ML PO PRN (01:17)
[2016-09-20] MEDS ORDERED: Senokot-S Tablet PO PRN (01:17)
[2016-09-20] MEDS ORDERED: Nitrostat 0.4 MG Tablet SL PRN (01:17)
[2016-09-20] MEDS ORDERED: SUBLIMAZE 100 MCG/2 ML IV PRN (01:22)
[2016-09-20] MEDS ORDERED: ENOXAPARIN SODIUM SQ ONE ×2 (01:25→01:26)
[2016-09-20] MEDS ORDERED: Sodium Chloride 0.9% 500 ML 500 ML IV SCH (01:30)
[2016-09-20] MEDS: Sodium Chloride 0.9% 1000 ML 1,000 ML IV SCH (03:08)
[2016-09-20] MEDS ORDERED: ANTIVERT 25 MG PO PRN (03:30)
[2016-09-20] MEDS ORDERED: DESYREL 50 MG PO PRN (03:35)
[2016-09-20] MEDS ORDERED: Tums EX 750 MG PO PRN (03:39)
[2016-09-20] MEDS: Norco 10/325 MG Tablet PO SCH ×5 (03:52→16:18)
[2016-09-20] MEDS ORDERED: PROVENTIL COMMON CANISTER IH PRN (04:51)
[2016-09-20] MEDS: NITRO-BID 2% UD PACKETS TOP SCH ×2 (05:36→12:49)
--- NOTE | 2016-09-20 08:44 | PCM.SSS ---
History of Present Illness - Chief Complaint Chief Complaint: HTN and chest pressure History of Present Illness: is a 55 year old male pt of Dr. Saenz who had elevated BP over 200 systolic and 5/10 substernal chest pain yesterday and came to the ER. He had forgotten his morning dose of carvedilol. He states this morning that his chest pain is 3/10 which is baseline for him - states he's had it chronically for some time and Dr. Maravilla thinks some of it may be musculoskeletal. - Review of Systems Constitutional: No Fever Ears, Nose, & Throat: Nose Congestion, Other (hard of hearing) Respiratory: Cough (non productive) Cardiac: Chest Pain All Other Systems: Reviewed and Negative Medications & Allergies Home Medications: Home Medication List Hydrocodone/APAP 10/325 mg [[place] 10/325 MG Tablet] 1 tab PO QID 04/06/13 [History Confirmed 09/20/16] Carvedilol 3.125 mg [Coreg 3.125 MG] 3.125 mg PO BID 03/03/16 [History Confirmed 09/19/16] Carisoprodol 350 mg [Soma 350 mg] 350 mg PO QID 05/02/16 [History Confirmed 09/20/16] Meclizine HCl 12.5 mg PO TID PRN #20 tablet 08/22/16 [Rx Confirmed 09/19/16] Tamsulosin HCl 0.4 mg [Flomax 0.4 MG] 0.4 mg PO QHS 09/20/16 [History Confirmed 09/20/16] Trazodone HCl 50 mg [Desyrel 50 mg] 100 mg PO HSPRN PRN 09/20/16 [History Confirmed 09/20/16] Allergies/Adverse Reactions: Allergies Allergy/AdvReac Type Severity Reaction Status Date / Time gabapentin Allergy Severe Tightness Verified 09/20/16 02:12 of Throat morphine Allergy Severe Rapid Verified 09/20/16 02:12 Heart Beat iodine Allergy Verified 09/20/16 02:12 - Past Medical History Past Medical History: Yes Neurological History: Migraines ENT History: No Pertinent History Cardiac History: High Cholesterol, Hypertension Respiratory History: Asthma Endocrine Medical History: Other Musculoskelatal History: Fractures, Other GI Medical History: Ulcer History: Other Pyscho-Social History: No Pertinent History Male Reproductive Disorders: Prostate Problems Comment: colon ulcers, neurogenic bladder, enlarged prostate, multiple skeletal fxs with orthopedic surgeries, ruptured disk in spine, - Past Surgical History Past Surgical History: Yes Neuro Surgical History: No Pertinent History Cardiac History: No Pertinent History Respiratory Surgery: No Pertinent History GI Surgical History: Appendectomy Genitourinary Surgical Hx: No Pertinent History Musculskeletal Surgical Hx: Orthopedic Surgery Male Surgical History: No Pertinent History Other Surgical History: 20+ orthopedic surgeries following fall while on the job. - Social History Smoking Status: Former smoker How long have you smoked: 5 Exposure to second hand smoke: No Alcohol: None Drug Use: none - Physical Exam Vital Signs: Vital Signs - 24 hr Temp Pulse Resp BP BP Pulse Ox 09/20/16 08:00 98.7 F 69 18 101/61 97 09/20/16 04:51 98 09/20/16 04:06 99 09/20/16 04:00 97.7 F 76 18 117/64 98 09/20/16 01:25 98 09/20/16 01:17 74 16 130/76 99 09/20/16 00:37 74 12 124/78 99 09/19/16 23:50 86 20 137/95 98 09/19/16 23:43 106 H 146/99 09/19/16 23:13 100 H 20 156/104 98 09/19/16 22:51 97.8 F 100 H 18 184/115 100 Oxygen-Last 24 hours O2 Percentage 2 Liters = 28% O2 Percentage 2 Liters = 28% O2 Percentage 2 Liters = 28% O2 Percentage 2 Liters = 28% General Appearance: no apparent distress Neurologic Exam: alert, oriented x 3, cooperative Eye Exam: eyes nml inspection Neck Exam: normal inspection, non-tender, supple, No lymphadenopathy Respiratory Exam: normal breath sounds, lungs clear, No crackles/rales, No rhonchi, No wheezing Cardiovascular Exam: regular rate/rhythm, normal heart sounds, No murmur Back Exam: normal inspection Extremity Exam: No pedal edema, No swelling Skin Exam: normal color, warm, dry Results - Labs Lab/Micro Results: Lab Results-Last 24 Hours 09/20/16 09/20/16 09/20/16 Range/Units 03:00 05:30 05:30 Troponin I < 0.017 < 0.017 (0.000-0.056) ng/ml Triglycerides 157 (30-200) mg/dL Cholesterol 228 H (100-200) mg/dL LDL Cholesterol 157 H (5-99) mg/dL HDL Cholesterol 41 (35-60) mg/dL Heart Disease Risk Ratio 5.6 - Radiology Impressions Radiology Exams & Impressions: Radiology Procedures Category Date Time Status PULMONARY PERF VENTILATION [NUCMED] Routine Exams 09/22/16 10:00 Ordered - Other Procedures and Tests Respiratory Therapy 09/20/16 04:50 Oxygen NASAL CANNULA 2 lpm 09/20/16 04:51 Respiratory MDI PRN 09/21/16 05:00 EKG DAILY 09/22/16 05:00 EKG DAILY 09/23/16 05:00 EKG DAILY Assessment/Plan (1) Chest pain Current Visit: No Status: Acute Qualifiers: Chest pain type: unspecified Qualified Code(s): R07.9 - Chest pain, unspecified Assessment & Plan: Troponins negative; if negative x 5, will d/c pt home. Code(s): R07.9 - CHEST PAIN, UNSPECIFIED (2) Elevated d-dimer Current Visit: Yes Status: Acute Assessment & Plan: The concern with chest pain and elevated d-dimer was of course for PE - pt is on lovenox. However now his chest pain is at baseline. He is allergic to IV dye and would have to wait 2d for a VQ scan. I will discuss with Dr. Maravilla, but with CP back to baseline I don't think it's necessary to wait and do the VQ scan. Code(s): R79.89 - OTHER SPECIFIED ABNORMAL FINDINGS OF BLOOD CHEMISTRY (3) HTN (hypertension) Current Visit: Yes Status: Chronic Qualifiers: Hypertension type: essential hypertension Qualified Code(s): I10 - Essential (primary) hypertension Assessment & Plan: Much better this morning. He has had to decrease his antihypertensives over the past year, but this regimen (coreg BID) has been stable for him. Forgot his med the day of admission. Code(s): I10 - ESSENTIAL (PRIMARY) HYPERTENSION Hospital Summary - Hospital Course Hospital Course: Pt admitted with hypertensive emergency and chest pain. MT being ruled out, if remaining 3 troponins are negative will d/c the patient to home. There was concern initially for PE with elevated d-dimer; however now the pt's chest pain is at baseline. 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 - Vitals & Intake/Output Vital Signs: Vital Signs Temperature 98.7 F 09/20/16 08:00 Pulse Rate 69 09/20/16 08:00 Respiratory Rate 18 09/20/16 08:00 Blood Pressure 101/61 09/20/16 08:00 O2 Sat by Pulse Oximetry 97 09/20/16 08:00 Oxygen-Last Documented O2 Percentage 2 Liters = 28% Intake & Output: Intake & Output 09/17/16 09/18/16 09/19/16 09/20/16 11:59 11:59 11:59 11:59 Intake Total 42 Balance 42 Weight 86.137 kg - Lab Result Diagrams: 09/19/16 22:55 09/19/16 22:55 Lab Results-Last 24 Hrs: Lab Results-Last 24 Hours 09/20/16 09/20/16 09/20/16 Range/Units 03:00 05:30 05:30 Troponin I < 0.017 < 0.017 (0.000-0.056) ng/ml Triglycerides 157 (30-200) mg/dL Cholesterol 228 H (100-200) mg/dL LDL Cholesterol 157 H (5-99) mg/dL HDL Cholesterol 41 (35-60) mg/dL Heart Disease Risk Ratio 5.6 - Radiology Exams Ordered Rad Exams-Entire Visit: Radiology Procedures Category Date Time Status PULMONARY PERF VENTILATION [NUCMED] Routine Exams 09/22/16 10:00 Ordered - Procedures and Test Procedures and Tests throughout Hospitalization: Therapy Orders & Screens 09/20/16 02:50 RT Screen per Nursing Assess ONCE Comment: Protocol Order Physician Instructions: Greater than 3 points order RT Admission Screen Reason For Exam: Triggered on Admission Diagnosis: HTN and chest pressure Diagnosis: HTN and chest pressure Pneumonia: No Home O2: No Asthma: Yes CHF: No Home CPAP/BIPAP: No Home Nebs/MDI: Yes: unsure of name of med Total Points: 9 09/20/16 04:50 Oxygen NASAL CANNULA 2 lpm Comment: Diagnosis: HTN and chest pressure 09/20/16 04:51 Respiratory MDI PRN Comment: Diagnosis: HTN and chest pressure 09/20/16 07:00 EKG ROUTINE Comment: Diagnosis: HTN and chest pressure 09/21/16 05:00 EKG DAILY Comment: Diagnosis: HTN and chest pressure 09/22/16 05:00 EKG DAILY Comment: Diagnosis: HTN and chest pressure 09/23/16 05:00 EKG DAILY Comment: Diagnosis: HTN and chest pressure - Discharge Disposition: Home, Self-Care Condition: Stable Prescriptions: Continue Hydrocodone/APAP 10/325 mg [[place] 10/325 MG Tablet] 1 tab PO QID Carvedilol 3.125 mg [Coreg 3.125 MG] 3.125 mg PO BID Carisoprodol 350 mg [Soma 350 mg] 350 mg PO QID Meclizine HCl 12.5 mg PO TID PRN #20 tablet Trazodone HCl 50 mg [Desyrel 50 mg] 100 mg PO HSPRN PRN PRN Reason: Insomnia Tamsulosin HCl 0.4 mg [Flomax 0.4 MG] 0.4 mg PO QHS Follow up with: KYLAH SAENZ MD [Primary Care Provider] - Forms: Patient Portal Information
[2016-09-20] MEDS: SOMA 350 MG PO SCH ×3 (08:58→16:18)
[2016-09-20] MEDS ORDERED: Ecotrin 325 MG PO SCH ×2 (10:00→22:00)
[2016-09-20] MEDS ORDERED: ENOXAPARIN SODIUM SQ SCH (10:00)
[2016-09-20] MEDS ORDERED: Zestril 10 MG PO SCH (10:00)
[2016-09-20] MEDS ORDERED: Coreg 3.125 MG PO SCH (10:00)
--- NOTE | 2016-09-20 10:07 | XRAY ---
Indication: Chest pain. Comparison: November 16, 2015. Portable chest again demonstrates normal heart, lungs, and bony thorax with a few incidental calcified granulomas.
--- NOTE | 2016-09-20 11:40 | XRAY ---
Indication: Elevated d-dimer. Two-dimensional sonogram and color Doppler imaging of the major venous vessels of the left and right leg was performed. Comparison: None No thrombus seen in the examined deep venous vessels of the left and right leg including greater saphenous veins. Veins demonstrate normal compressibility. Venous waveforms are normal with and without augmentation. Impression: Left and right leg negative for DVT.
[2016-09-20 12:22] VITALS: O2SAT 96
[2016-09-20 15:45] VITALS: BP 80/53; PULSE 76
[2016-09-20] MEDS ORDERED: Flomax 0.4 MG PO SCH (22:00)
== END 2016-09-20 16:55 | disposition home or self-care (01) ==
LOC: ED 22:37 → MED SURG 09-20 01:55
PROVIDERS: ADMIT Family Medicine; ATTEND Family Medicine
DX: R07.89 Other chest pain (principal); R79.89 Other specified abnormal findings of blood chemistry; I10 Essential (primary) hypertension; G47.00 Insomnia, unspecified; Z79.899 Other long term (current) drug therapy
CPT/HCPCS: 36000; 36415; 71010; 80053; 80061; 83721; 84484; 85025; 85379; 85610; 93005; 93041; 93970; 96360; 96361; 96372; 96374; 96375; 99285; G0378; J1650; J3010; A9270-GY

== ENCOUNTER 2016-12-04 23:49 | Emergency (ER) | payer MEDICARE, SELFPAY ==
[2016-12-05] MEDS ORDERED: Sodium Chloride 0.9% 1000 ML 1,000 ML ONE (00:26)
[2016-12-05] MEDS ORDERED: Sodium Chloride 0.9% 1000 ML 1,000 ML IV SCH (00:30)
--- NOTE | 2016-12-05 00:37 | ERPHSYRPT ---
- History of Present Illness Time Seen by Provider: 12/04/16 23:56 Source: patient Exam Limitations: clinical condition Patient Subjective Stated Complaint: pt is here with co high blood pressure - states at home it was 190/110 -states 3 weeks ago he fell backwards and hit is head -he saw dr davidson and had a ct- since then every night he has been vomting every night and having severe headache and neck pain -states he sees sparkles then the pain starts rates pain a 4- on arr -took norco but vomted Triage Nursing Assessment: pt is awake and alert and able to answer questions Physician History: PATIENT WITH A HISTORY OF HIGH BLOOD PRESSURE. COMPLAINS OF GENERAL HEADACHES. DAILY FOR 14 DAYS AFTER FALLING WHILE STANDING, FELL STANDING POSITION., HAS NIGHTLY HEASCHES ,./ DENIES FEVER AND STATES HIS BLOOD HAS CECELIA ELEVATED. Timing/Duration: yesterday, week(s) Quality: throbbing Head Pain Location: occipital Severity of Pain-Max: moderate Severity of Pain-Current: moderate Allergies/Adverse Reactions: gabapentin Allergy (Severe, Verified 09/20/16 02:12) Tightness of Throat rash and itch morphine Allergy (Severe, Verified 09/20/16 02:12) Rapid Heart Beat states "like anxiety" iodine Allergy (Verified 09/20/16 02:12) Home Medications: Hydrocodone/APAP 10/325 mg [[place]mor 10/325 MG Tablet] 1 tab PO QID 04/06/13 [History] Carvedilol 3.125 mg [Coreg 3.125 MG] 3.125 mg PO BID 03/03/16 [History] Carisoprodol 350 mg [Soma 350 mg] 350 mg PO QID 05/02/16 [History] Tamsulosin HCl 0.4 mg [Flomax 0.4 MG] 0.4 mg PO QHS 09/20/16 [History] Trazodone HCl 50 mg [Desyrel 50 mg] 100 mg PO HSPRN PRN 09/20/16 [History] Hx Tetanus, Diphtheria Vaccination/Date Given: Yes Hx Influenza Vaccination/Date Given: No Hx Pneumococcal Vaccination/Date Given: No - Review of Systems Constitutional: No Symptoms Ears, Nose, & Throat: No Symptoms Respiratory: No Symptoms Cardiac: No Symptoms Abdominal/Gastrointestinal: No Symptoms Neurological: Headache Psychological: No Symptoms Endocrine: No Symptoms - Past Medical History Pertinent Past Medical History: Yes Neurological History: Migraines ENT History: No Pertinent History Cardiac History: High Cholesterol, Hypertension Respiratory History: Asthma Endocrine Medical History: Other Musculoskeletal History: Fractures, Other GI Medical History: Ulcer History: Other Psycho-Social History: No Pertinent History Male Reproductive Disorders: Prostate Problems Other Medical History: colon ulcers, neurogenic bladder, enlarged prostate, multiple skeletal fxs with orthopedic surgeries, ruptured disk in spine, - Past Surgical History Past Surgical History: Yes Neuro Surgical History: No Pertinent History Cardiac: No Pertinent History Respiratory: No Pertinent History Gastrointestinal: Appendectomy Genitourinary: No Pertinent History Musculoskeletal: Orthopedic Surgery Male Surgical History: No Pertinent History Other Surgical History: 20+ orthopedic surgeries following fall while on the job. - Social History Smoking Status: Former smoker How long have you smoked: 5 Exposure to second hand smoke: No Drug Use: none Patient Lives Alone: No - Nursing Vital Signs Nursing Vital Signs: Initial Vital Signs Temperature 98.7 F 12/04/16 23:50 Pulse Rate 86 12/04/16 23:50 Respiratory Rate 20 12/04/16 23:50 Blood Pressure 163/101 12/04/16 23:50 O2 Sat by Pulse Oximetry 98 12/04/16 23:50 Pain Scale Pain Intensity 2 - Physical Exam SpO2: 98 Oxygen Delivery: Room Air - Course EKG Interpreted by Me: Sinus Rhythm, Sinus Tach, NORMAL AXIS - CT Exams Head CT Interpretation: Tele-radiologist Report (NORMAL HEAD/BRAIN CT) Ordered Tests: Active Orders 24 hr Category Date Time Status Clean Catch Urine Specimen STAT Care 12/05/16 02:07 Active IV Insertion STAT Care 12/05/16 00:21 Active HEAD WITHOUT CONTRAST [CT] Stat Exams 12/05/16 00:23 Taken Medication Summary Generic Name Dose Route Start Last Admin Trade Name Freq PRN Reason Stop Dose Admin Sodium Chloride 1,000 mls @ 100 mls/hr 12/05/16 00:30 12/05/16 00:27 Sodium Chloride 0.9% 1000 Ml IV 01/04/17 00:29 100 mls/hr .Q10H ANTHONY Administration Discontinued Medications Generic Name Dose Route Start Last Admin Trade Name Freq PRN Reason Stop Dose Admin Hydromorphone HCl 2 mg 12/05/16 01:20 12/05/16 01:28 Hydromorphone 1 Mg/Ml Ampule IV 12/05/16 01:21 2 mg STAT ONE Administration Hydromorphone HCl Confirm 12/05/16 01:25 Hydromorphone 1 Mg/Ml Ampule Administered 12/05/16 01:26 Dose 2 mg .ROUTE .STK-MED ONE Ondansetron HCl 4 mg 12/05/16 01:19 12/05/16 01:26 Zofran 4 Mg/2 Ml Vial IV 12/05/16 01:20 4 mg STAT ONE Administration Ondansetron HCl Confirm 12/05/16 01:25 Zofran 4 Mg/2 Ml Vial Administered 12/05/16 01:26 Dose 4 mg .ROUTE .STK-MED ONE - Progress Progress: improved Progress Note: 12/05/16 01:46 PATIENT ADMINISTERED IV NORMAL SALINE 100MG/HR, ZOFRAN 4MG IV, DILAUDID 2MG IV Counseled pt/family regarding: diagnosis, rad results - Departure Time of Disposition: 02:15 Departure Disposition: Home Clinical Impression: Post concussion syndrome Condition: Stable Critical Care Time: No Referrals: KYLAH DAVIDSON MD [Primary Care Provider] - Additional Instructions: CONTINUE ALL CURRENT MEDICATIONS. CONSULT YOUR PRIMARY CARE PHYSICIAN FOR EVALUATION, TREATMENT AND REFERRAL TO PAIN SPECIALIST.
[2016-12-05] MEDS ORDERED: Zofran 4 MG/2 ML VIAL IV ONE (01:19)
[2016-12-05] MEDS ORDERED: Hydromorphone 1 mg/ml Ampule IV ONE (01:20)
[2016-12-05] MEDS ORDERED: Hydromorphone 1 mg/ml Ampule ONE (01:25)
[2016-12-05] MEDS ORDERED: Zofran 4 MG/2 ML VIAL ONE (01:25)
[2016-12-05 02:32] VITALS: BP 150/101; PULSE 70; O2SAT 97
--- NOTE | 2016-12-05 08:56 | XRAY ---
Indication: Headache. Status post fall 2 weeks ago. Multiple contiguous axial images obtained through the head without contrast. Comparison: November 23, 2016. Again normal appearing brain parenchyma, ventricles, and bony calvarium. Visualized paranasal sinuses and mastoid air cells clear. Impression: Stable normal CT head without contrast exam. Comment: Preliminary interpretation was made by [facility]. No discrepancy. CT DI 66.81
== END 2016-12-05 02:41 | disposition home or self-care (01) ==
LOC: ED 23:49
DX: F07.81 Postconcussional syndrome (principal); I10 Essential (primary) hypertension; Z79.899 Other long term (current) drug therapy; Z79.891 Long term (current) use of opiate analgesic; E78.00 Pure hypercholesterolemia, unspecified
CPT/HCPCS: 36000; 70450; 96360; 96374; 96375; 99284; J1170; J2405

== ENCOUNTER 2017-02-20 07:14 | Emergency (ER) | payer MEDICARE, SELFPAY ==
[2017-02-20] MEDS ORDERED: TORAdol 30 mg Injection IM ONE (07:39)
[2017-02-20] MEDS ORDERED: Norflex 60 MG/2 ML IM ONE (07:39)
[2017-02-20] MEDS ORDERED: TORAdol 30 mg Injection ONE (07:45)
[2017-02-20] MEDS ORDERED: Norflex 60 MG/2 ML ONE (07:45)
--- NOTE | 2017-02-20 07:45 | ERPHSYRPT ---
- History of Present Illness Time Seen by Provider: 02/20/17 07:29 Source: patient Patient Subjective Stated Complaint: pt here for lower back pain, pain radiates down right leg, states leg feels heavy, pain increased on monday after moving wood. pt has hx of back problems Triage Nursing Assessment: pt alert, arrived per wc, gaurding right side, able to undress on own, resp easy, skin w/d pink Physician History: CC: back pain Hx: 56 y/o patient of Dr Saenz. He has hx of chronic back pain and has had several prior surgeries. He takes norco and soma regularly. He is scheduled to see [facility] Rhianna De Los Santos this week for neck injection. He states increased low back pain like something blew up in his back. Started a few days ago getting out of a chair. Pain and tingling radiates to the right leg which feels heavy. No urinary incontinence since last year. No hematuria. No hx of CA. No fever or chills. No recent fall or significant injury. Pain is sharp and severe. 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 ALL: morphine CT contrast, gabapentin. Back Pain Location: lumbar spine Back Pain Radiation: upper legs, lower legs (right) Severity of Pain-Max: severe Severity of Pain-Current: severe Allergies/Adverse Reactions: gabapentin Allergy (Severe, Verified 02/20/17 07:27) Tightness of Throat rash and itch morphine Allergy (Severe, Verified 02/20/17 07:27) Rapid Heart Beat states "like anxiety" iodine Allergy (Verified 02/20/17 07:27) Home Medications: Hydrocodone/APAP 10/325 mg [Gambell 10/325 MG Tablet] 1 tab PO QID 04/06/13 [History] Carvedilol 3.125 mg [Coreg 3.125 MG] 3.125 mg PO BID 03/03/16 [History] Carisoprodol 350 mg [Soma 350 mg] 350 mg PO QID 05/02/16 [History] Tamsulosin HCl 0.4 mg [Flomax 0.4 MG] 0.4 mg PO QHS 09/20/16 [History] Trazodone HCl 50 mg [Desyrel 50 mg] 100 mg PO HSPRN PRN 09/20/16 [History] Hx Tetanus, Diphtheria Vaccination/Date Given: Yes Hx Influenza Vaccination/Date Given: No Hx Pneumococcal Vaccination/Date Given: No Immunizations Up to Date: Yes - Review of Systems Constitutional: No Fever, No Chills Eyes: No Symptoms Ears, Nose, & Throat: No Symptoms Respiratory: No Cough, No Dyspnea Cardiac: No Chest Pain Abdominal/Gastrointestinal: No Abdominal Pain, No Nausea, No Vomiting Genitourinary Symptoms: No Dysuria, No Incontinence, No Urinary Retention, No Flank Pain, No Testicle Pain Musculoskeletal: Back Pain, No Fall, No Injury Skin: No Rash Neurological: Parasthesia, No Focal Weakness, No Headache All Other Systems: Reviewed and Negative - Past Medical History Pertinent Past Medical History: Yes Neurological History: Migraines ENT History: No Pertinent History Cardiac History: Hypertension Respiratory History: Asthma Endocrine Medical History: Hypoglycemia Musculoskeletal History: Osteoarthritis GI Medical History: Ulcer History: Other Psycho-Social History: No Pertinent History Male Reproductive Disorders: Prostate Problems Other Medical History: Metal plate in the L ankle, multiple back surgeries. Notes numbness in B LE - Past Surgical History Past Surgical History: Yes Neuro Surgical History: No Pertinent History Cardiac: No Pertinent History Respiratory: No Pertinent History Gastrointestinal: Appendectomy Genitourinary: No Pertinent History Musculoskeletal: Orthopedic Surgery Male Surgical History: No Pertinent History Other Surgical History: 20+ orthopedic surgeries following fall while on the job. - Social History Smoking Status: Never smoker How long have you smoked: 5 Exposure to second hand smoke: No Drug Use: none Patient Lives Alone: No - Nursing Vital Signs Nursing Vital Signs: Initial Vital Signs Temperature 98.6 F 02/20/17 07:22 Pulse Rate 88 02/20/17 07:22 Respiratory Rate 16 02/20/17 07:22 Blood Pressure 151/98 02/20/17 07:22 O2 Sat by Pulse Oximetry 98 02/20/17 07:22 Pain Scale Pain Intensity [Back] 8 Pain Intensity 6 - Physical Exam General Appearance: alert, other (pleasant man, talkative) Eye Exam: PERRL/EOMI Ears, Nose, Throat Exam: normal ENT inspection, moist mucous membranes Neck Exam: normal inspection, non-tender, supple Respiratory Exam: normal breath sounds Cardiovascular Exam: regular rate/rhythm Gastrointestinal Exam: soft, No tenderness, No distention Male Genetalia Exam: normal genitalia, No testicular tenderness Rectal Exam: normal rectal tone (no saddle anesthesia) Back Exam: normal inspection, No vertebral tenderness, No rash Extremity Exam: normal inspection, normal range of motion, other (MSR's 1+ both patella) Neurologic Exam: alert, oriented x 3, 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, 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, sensation nml, other (pain with movement of the right leg), No motor deficits Skin Exam: warm, dry, No rash SpO2 Interpretation: normal SpO2: 98 Oxygen Delivery: Room Air - Course Nursing assessment & vital signs reviewed: Yes - Radiology Exams lumbar X-ray Interpretation: Teleradiologist Report, No Fracture, No Subluxation Ordered Tests: Active Orders 24 hr Category Date Time Status Clean Catch Urine Specimen STAT Care 02/20/17 09:51 Active IV Insertion STAT Care 02/20/17 08:35 Active LUMBAR COMPLETE (MIN 4 VIEWS) Stat Exams 02/20/17 09:42 Completed UA W/RFX UR CULTURE Stat Lab 02/20/17 09:45 Completed Medication Summary Discontinued Medications Generic Name Dose Route Start Last Admin Trade Name Freq PRN Reason Stop Dose Admin Hydromorphone HCl 1 mg 02/20/17 08:35 02/20/17 09:05 Hydromorphone 1 Mg/Ml Ampule IV 02/20/17 08:36 1 mg STAT ONE Administration Hydromorphone HCl Confirm 02/20/17 09:04 Hydromorphone 1 Mg/Ml Ampule Administered 02/20/17 09:05 Dose 1 mg .ROUTE .STK-MED ONE Ketorolac Tromethamine 60 mg 02/20/17 07:39 02/20/17 07:47 Toradol 30 Mg Injection IM 02/20/17 07:40 60 mg STAT ONE Administration Ketorolac Tromethamine Confirm 02/20/17 07:45 Toradol 30 Mg Injection Administered 02/20/17 07:46 Dose 60 mg .ROUTE .STK-MED ONE Orphenadrine Citrate 60 mg 02/20/17 07:39 02/20/17 07:47 Norflex 60 Mg/2 Ml IM 02/20/17 07:40 60 mg STAT ONE Administration Orphenadrine Citrate Confirm 02/20/17 07:45 Norflex 60 Mg/2 Ml Administered 02/20/17 07:46 Dose 60 mg .ROUTE .STK-MED ONE Lab/Rad Data: Laboratory Results 02/20/17 Range/Units 09:45 Ur Collection Type CCMS Urine Color LT.YELLOW (YELLOW) Urine Appearance CLEAR (CLEAR) Urine pH 6.0 (5-6) Ur Specific [place] 1.010 (1.005-1.025) Urine Protein NEGATIVE (Negative) Urine Ketones NEGATIVE (NEGATIVE) Urine Blood NEGATIVE (0-5) Sean/ul Urine Nitrite NEGATIVE (NEGATIVE) Urine Bilirubin NEGATIVE (NEGATIVE) Urine Urobilinogen NORMAL (0-1) mg/dL Ur Leukocyte Esterase NEGATIVE (NEGATIVE) Urine Culture Reflexed NO (NO) Urine Glucose NEGATIVE (NEGATIVE) mg/dL Specimen Received 02/20 0950 - Progress Progress Note: 02/20/17 07:45 He is scheduled for [facility] this week so advised he see the specialist but will hold on steroids now. IM toradol and norflex given. He is already on chronic soma and norco. Emergent MRI not indicated. Follow up advised. 02/20/17 09:07 The patient continues to have pain. WIll give dilaudid. Discussed risks of multiple sedating meds. Position changes and ice packs tried. Xray not likely to be useful. He likely will need OP MRI. 02/20/17 10:17 Pt ambulated to and was able to urinate. He has pain appt for injection Wed. Advised call them today for update. Will add NSAID to his norco/soma. Instr given. He has a cane at home and was encouraged to use it. Counseled pt/family regarding: lab results, diagnosis, need for follow-up, rad results - Departure Time of Disposition: 10:18 Departure Disposition: Home Clinical Impression: Right-sided low back pain with sciatica Qualifiers: Chronicity: acute Sciatica laterality: sciatica of right side Qualified Code(s) : M54.41 - Lumbago with sciatica, right side Condition: Stable Critical Care Time: No Referrals: KYLAH SAENZ MD [Primary Care Provider] - Instructions: Back Pain With Sciatica Additional Instructions: No driving today and stay with family. Rx ibuprofen to add to norco/soma. See [facility] Celestin Wed. Called them with update today. BACK INJURY 1. May apply moist heat frequently for relief of pain. Take care not to burn the skin. Do not use heat for more than 30 minutes at a time. 2. Try to sleep on a firm bed, flat on your back. 3. If no improvement is noticed in 2-3 days, follow up with your family physician. 4. If you notice any numbness, tingling, weakness, or problems with your bowel or bladder, you should call your family physician or return to the emergency department. Prescriptions: Ibuprofen 1 tab PO Q6H PRN PRN #24 tablet PRN Reason: pain
[2017-02-20] MEDS ORDERED: Hydromorphone 1 mg/ml Ampule IV ONE (08:35)
[2017-02-20] MEDS ORDERED: Hydromorphone 1 mg/ml Ampule ONE (09:04)
[2017-02-20 09:59] LABS: ADD URINE CULTURE? NO (NO); Bilirubin NEGATIVE (NEGATIVE); Blood NEGATIVE Ery/ul (0-5); COMPLETE URINE MICROSCOPIC? NO; Collection Type CCMS; Glucose NEGATIVE (NEGATIVE); Leukocyte Esterase NEGATIVE (NEGATIVE)
--- NOTE | 2017-02-20 10:15 | XRAY ---
Indication: Low back pain. No acute injury. Comparison: April 06, 2012. 5 views of the lumbar spine demonstrates progressive worsening L5-S1 degenerative disc space loss and endplate spurring with now tiny vacuum disc phenomena. Stable bilateral L5-S1 degenerative facet arthropathy. No acute fracture, subluxation, or pars interarticularis defect. There remains minimal aortic calcifications. Impression: Again nonacute lumbar spine with chronic features.
[2017-02-20 10:18] VITALS: BP 132/93; PULSE 77; O2SAT 98
== END 2017-02-20 10:30 | disposition home or self-care (01) ==
LOC: ED 07:14
DX: M54.41 Lumbago with sciatica, right side (principal); G89.29 Other chronic pain; Z79.891 Long term (current) use of opiate analgesic; Z79.899 Other long term (current) drug therapy; I10 Essential (primary) hypertension; E16.2 Hypoglycemia, unspecified
CPT/HCPCS: 36000; 72110; 81002; 96372; 96374; 99284; J1170; J1885; J2360

== ENCOUNTER 2017-03-11 14:32 | Emergency (ER) | payer MEDICARE ==
[2017-03-11] MEDS ORDERED: TYLENOL 325 MG PO ONE (14:53)
[2017-03-11] MEDS ORDERED: Vistaril 50 MG/ML IM ONE (14:54)
[2017-03-11] MEDS ORDERED: TYLENOL 325 MG ONE (15:12)
[2017-03-11] MEDS ORDERED: VISTARIL 100MG/2ML IM ONE (15:12)
[2017-03-11 15:13] LABS: VBG BASE EXCESS 1.4 (-2.0-2.0); VBG CARBOXYHEMOGLOBIN 2.1 % T HGB (0.0-6.9); VBG HCO3- 26.6 meq/L (22-28); VBG HEMOGLOBIN 15.6; VBG POTASSIUM 4.1 (3.5-5.1); VBG pH 7.4 (7.32-7.42)
--- NOTE | 2017-03-11 15:23 | ERPHSYRPT ---
- History of Present Illness Time Seen by Provider: 03/11/17 14:38 Source: patient Patient Subjective Stated Complaint: Pt states "I was working outside and I got really dizzy and my head has been killing me and my blood pressure is up." Triage Nursing Assessment: Pt alert and oriented X 3, skin pwd. pt ambulates with an upright steady gait, able to speak in clear full sentences. Physician History: CC: high blood pressure hx: 56 y/o patient of Dr Saenz has hx of HTN. Recently increased dose of medication (coreg). He was bent over working this AM and felt lightheaded and dizzy so he checked BP and it was high. He rested and watched TV but it was still high. He has some headache since awakening this AM. He had similar headaches last fall. He has no chest pain or dyspnea. No V/D. Normal urination except for some hesitancy. No fever or chills. No blurred vision. He has chronic neck and back pain. He had injection of his neck and follow up back MRI since being here. Severity: moderate Allergies/Adverse Reactions: gabapentin Allergy (Severe, Verified 02/20/17 07:27) Tightness of Throat rash and itch morphine Allergy (Severe, Verified 02/20/17 07:27) Rapid Heart Beat states "like anxiety" iodine Allergy (Verified 02/20/17 07:27) Home Medications: Hydrocodone/APAP 10/325 mg [[place] 10/325 MG Tablet] 1 tab PO QID 04/06/13 [History] Carvedilol 3.125 mg [Coreg 3.125 MG] 6.25 mg PO BID 03/03/16 [History] Carisoprodol 350 mg [Soma 350 mg] 350 mg PO QID 05/02/16 [History] Tamsulosin HCl 0.4 mg [Flomax 0.4 MG] 0.4 mg PO QHS 09/20/16 [History] Hx Tetanus, Diphtheria Vaccination/Date Given: No Hx Influenza Vaccination/Date Given: No Hx Pneumococcal Vaccination/Date Given: No Immunizations Up to Date: Yes - Review of Systems Constitutional: No Fever, No Chills Eyes: No Vision Changes Ears, Nose, & Throat: No Symptoms Respiratory: No Cough, No Dyspnea Cardiac: No Chest Pain, No Edema, No Palpitations, No Syncope Abdominal/Gastrointestinal: No Abdominal Pain, No Nausea, No Vomiting, No Diarrhea Musculoskeletal: No Back Pain Skin: No Rash Neurological: Dizziness, Headache, No Focal Weakness, No Parasthesia All Other Systems: Reviewed and Negative - Past Medical History Pertinent Past Medical History: Yes Neurological History: Migraines ENT History: No Pertinent History Cardiac History: Hypertension Respiratory History: Asthma Endocrine Medical History: Hypoglycemia Musculoskeletal History: Osteoarthritis GI Medical History: Ulcer History: Other Psycho-Social History: No Pertinent History Male Reproductive Disorders: Prostate Problems Other Medical History: Metal plate in the L ankle, multiple back surgeries. Notes numbness in B LE - Past Surgical History Past Surgical History: Yes Neuro Surgical History: No Pertinent History Cardiac: No Pertinent History Respiratory: No Pertinent History Gastrointestinal: Appendectomy Genitourinary: No Pertinent History Musculoskeletal: Orthopedic Surgery Male Surgical History: No Pertinent History Other Surgical History: 20+ orthopedic surgeries following fall while on the job. - Social History Smoking Status: Former smoker How long have you smoked: 5 Exposure to second hand smoke: No Drug Use: none Patient Lives Alone: No - Nursing Vital Signs Nursing Vital Signs: Initial Vital Signs Temperature 98.2 F 03/11/17 14:39 Pulse Rate 94 H 03/11/17 14:39 Respiratory Rate 18 03/11/17 14:39 Blood Pressure 168/107 03/11/17 14:39 O2 Sat by Pulse Oximetry 100 03/11/17 14:39 Pain Scale Pain Intensity 5 - Physical Exam General Appearance: alert, anxiety Eye Exam: PERRL/EOMI Ears, Nose, Throat Exam: normal ENT inspection, moist mucous membranes Neck Exam: normal inspection, non-tender, supple Respiratory Exam: normal breath sounds, lungs clear Cardiovascular Exam: regular rate/rhythm, No murmur Gastrointestinal/Abdomen Exam: soft, No tenderness, No distention Male Genitalia Exam: normal genitalia Back Exam: normal inspection, No vertebral tenderness Extremity Exam: normal inspection, normal range of motion Neurologic Exam: alert, oriented x 3, 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, 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, sensation nml, No motor deficits Skin Exam: warm, dry, No rash SpO2 Interpretation: normal SpO2: 100 Oxygen Delivery: Room Air - Course Nursing assessment & vital signs reviewed: Yes EKG Interpreted by Me: RATE (89), Sinus Rhythm, NORMAL AXIS, NORMAL INTERVALS ( QTc 451), NORMAL QRS, NORMAL ST-T Ordered Tests: Active Orders 24 hr Category Date Time Status Clean Catch Urine Specimen STAT Care 03/11/17 14:53 Active EKG-ER Only STAT Care 03/11/17 14:54 Active IV Insertion STAT Care 03/11/17 14:53 Active CBC W DIFF Stat Lab 03/11/17 15:01 Completed CMP Stat Lab 03/11/17 15:01 Completed UA W/RFX UR CULTURE Stat Lab 03/11/17 15:00 Completed VENOUS BLOOD GAS Urgent Lab 03/11/17 14:53 Completed Medication Summary Discontinued Medications Generic Name Dose Route Start Last Admin Trade Name Freq PRN Reason Stop Dose Admin Acetaminophen 975 mg 03/11/17 14:53 03/11/17 15:14 Tylenol 325 Mg PO 03/11/17 14:54 975 mg STAT ONE Administration Acetaminophen Confirm 03/11/17 15:12 Tylenol 325 Mg Administered 03/11/17 15:13 Dose 975 mg .ROUTE .STK-MED ONE Hydroxyzine HCl 50 mg 03/11/17 14:54 03/11/17 15:15 Vistaril 50 Mg/Ml IM 03/11/17 14:55 50 mg STAT ONE Administration Hydroxyzine HCl Confirm 03/11/17 15:12 Vistaril 100mg/2ml Administered 03/11/17 15:13 Dose 100 mg IM .STK-MED ONE Lab/Rad Data: Laboratory Result Diagrams 03/11/17 15:01 03/11/17 15:01 Laboratory Results 03/11/17 03/11/17 03/11/17 Range/Units 15:01 15:01 15:00 WBC 11.2 H (4.0-10.5) K/mm3 RBC 4.71 (4.1-5.6) M/mm3 Hgb 14.5 (12.5-18.0) gm/dl Hct 44.2 (42-50) % MCV 93.8 (78-100) fl MCH 30.8 (26-32) pg MCHC 32.8 (32-36) g/dl RDW 12.3 (11.5-14.0) % Plt Count 292 (150-450) K/mm3 MPV 9.8 H (6-9.5) fl Gran % 65.7 (36.0-66.0) % Lymphocytes % 25.0 (24.0-44.0) % Monocytes % 8.2 (0.0-12.0) % Eosinophils % 0.9 (0.00-5.0) % Basophils % 0.2 (0.0-0.4) % Basophils # 0.02 (0-0.4) VBG pH (7.32-7.42) VBG pCO2 at Pat Temp (42-55) mm/Hg VBG pO2 at Pat Temp (25-40) mm/Hg VBG HCO3 (22-28) meq/L VBG O2 Sat (Coleen) (95-100) VBG Base Excess (-2.0-2.0) VBG Hemoglobin VBG Carboxyhemoglobin (0.0-6.9) % T HGB POC Potassium (3.5-5.1) Sodium 136 (136-145) mEq/L Potassium 4.2 (3.5-5.1) mEq/L Chloride 100 (98-107) mEq/L Carbon Dioxide 26.5 (21-32) mEq/L Anion Gap 13.6 (5-15) MEQ/L BUN 14 (9-20) mg/dL Creatinine 0.92 (0.55-1.30) mg/dl Estimated GFR > 60 ML/MIN Glucose 87 (70-110) MG/DL Calcium 9.7 (8.5-10.1) mg/dL Total Bilirubin 0.60 (0.2-1.0) mg/dL AST 21 (15-37) U/L ALT 34 (12-78) U/L Alkaline Phosphatase 96 (46-116) U/L Serum Total Protein 7.7 (6.4-8.2) gm/dL Albumin 4.1 (3.4-5.0) g/dL Ur Collection Type CLEAN CATCH Urine Color YELLOW (YELLOW) Urine Appearance CLEAR (CLEAR) Urine pH 5.0 (5-6) Ur Specific [place] 1.010 (1.005-1.025) Urine Protein NEGATIVE (Negative) Urine Ketones NEGATIVE (NEGATIVE) Urine Blood NEGATIVE (0-5) Sean/ul Urine Nitrite NEGATIVE (NEGATIVE) Urine Bilirubin NEGATIVE (NEGATIVE) Urine Urobilinogen NORMAL (0-1) mg/dL Ur Leukocyte Esterase NEGATIVE (NEGATIVE) Urine Culture Reflexed NO (NO) Urine Glucose NEGATIVE (NEGATIVE) mg/dL Specimen Received 03-11-17 1500 03/11/17 Range/Units 14:53 WBC (4.0-10.5) K/mm3 RBC (4.1-5.6) M/mm3 Hgb (12.5-18.0) gm/dl Hct (42-50) % MCV (78-100) fl MCH (26-32) pg MCHC (32-36) g/dl RDW (11.5-14.0) % Plt Count (150-450) K/mm3 MPV (6-9.5) fl Gran % (36.0-66.0) % Lymphocytes % (24.0-44.0) % Monocytes % (0.0-12.0) % Eosinophils % (0.00-5.0) % Basophils % (0.0-0.4) % Basophils # (0-0.4) VBG pH 7.40 (7.32-7.42) VBG pCO2 at Pat Temp 43 (42-55) mm/Hg VBG pO2 at Pat Temp 29 (25-40) mm/Hg VBG HCO3 26.6 (22-28) meq/L VBG O2 Sat (Coleen) 65.0 L (95-100) VBG Base Excess 1.4 (-2.0-2.0) VBG Hemoglobin 15.6 VBG Carboxyhemoglobin 2.1 (0.0-6.9) % T HGB POC Potassium 4.1 (3.5-5.1) Sodium (136-145) mEq/L Potassium (3.5-5.1) mEq/L Chloride (98-107) mEq/L Carbon Dioxide (21-32) mEq/L Anion Gap (5-15) MEQ/L BUN (9-20) mg/dL Creatinine (0.55-1.30) mg/dl Estimated GFR ML/MIN Glucose (70-110) MG/DL Calcium (8.5-10.1) mg/dL Total Bilirubin (0.2-1.0) mg/dL AST (15-37) U/L ALT (12-78) U/L Alkaline Phosphatase (46-116) U/L Serum Total Protein (6.4-8.2) gm/dL Albumin (3.4-5.0) g/dL Ur Collection Type Urine Color (YELLOW) Urine Appearance (CLEAR) Urine pH (5-6) Ur Specific [place] (1.005-1.025) Urine Protein (Negative) Urine Ketones (NEGATIVE) Urine Blood (0-5) Sean/ul Urine Nitrite (NEGATIVE) Urine Bilirubin (NEGATIVE) Urine Urobilinogen (0-1) mg/dL Ur Leukocyte Esterase (NEGATIVE) Urine Culture Reflexed (NO) Urine Glucose (NEGATIVE) mg/dL Specimen Received - Progress Progress Note: 03/11/17 15:22 He has no focal weakness and normal station and gait. 03/11/17 17:11 He feels better. BP better. He has had stresfful week caring for sister's animals. HE is on coreg 12.5mg BID since Mon. Will continue. No focal neuro findings. Will release with instr. - Departure Time of Disposition: 17:11 Departure Disposition: Home Clinical Impression: HTN (hypertension), Headache Condition: Stable Critical Care Time: No Referrals: KYLAH SAENZ MD [Primary Care Provider] - Instructions: Headache, High Blood Pressure Additional Instructions: Continue your coreg twice a day. No driving today and rest. Follow up with Dr Saenz Monday. Return for problems or concerns.
[2017-03-11 15:26] LABS: BASOPHIL % 0.2 % (0.0-0.4); Basophil (Absolute #) 0.02 (0-0.4); Eosinophil % 0.9 % (0.00-5.0); Granulocyte Absolute (ANC) 7.38 (1.4-6.9); Granulocytes % 65.7 % (36.0-66.0); Hematocrit 44.2 % (42-50); Hemoglobin 14.5 gm/dl (12.5-18.0); Lymphocyte (Absolute #) 2.81 (1.0-4.6); Mean Cell Volume 93.8 fl (78-100); Mean Corpuscular Hemoglobin 30.8 pg (26-32); Mean Corpuscular Hgb Concent. 32.8 g/dl (32-36); Mean Platelet Volume 9.8 fl (6-9.5); Monocyte (Absolute #) 0.92 (0.0-1.3); Monocytes % 8.2 % (0.0-12.0); Platelet Count 292 K/mm3 (150-450); Red Blood Count 4.71 M/mm3 (4.1-5.6); Red Cell Distribution Width 12.3 % (11.5-14.0); White Blood Count 11.2 K/mm3 (4.0-10.5)
[2017-03-11 16:32] VITALS: BP 122/86; PULSE 86
[2017-03-11 16:36] LABS: Appearance CLEAR (CLEAR); Bilirubin NEGATIVE (NEGATIVE); Blood NEGATIVE Ery/ul (0-5); Glucose NEGATIVE (NEGATIVE); Ketones NEGATIVE (NEGATIVE); Leukocyte Esterase NEGATIVE (NEGATIVE); Nitrite NEGATIVE (NEGATIVE); Protein,Urine Dip NEGATIVE (Negative); Urobilinogen NORMAL mg/dL (0-1)
[2017-03-11 16:56] LABS: ALBUMIN 4.1 g/dL (3.4-5.0); ALKALINE PHOSPHATASE 96 U/L (46-116); ANION GAP 13.6 MEQ/L (5-15); BLOOD UREA NITROGEN 14 mg/dL (9-20); CHLORIDE 100 mEq/L (98-107); Calcium 9.7 mg/dL (8.5-10.1); Carbon Dioxide 26.5 mEq/L (21-32); Creatinine 1 0.92 mg/dl (0.55-1.30); EST GLOMERULAR FILTRATION RATE > 60 ML/MIN; Glucose 87 MG/DL (70-110); Potassium 4.2 mEq/L (3.5-5.1); SGOT/AST 21 U/L (15-37); SGPT/ALT 34 U/L (12-78); SODIUM 136 mEq/L (136-145); Total Protein 7.7 gm/dL (6.4-8.2)
[2017-03-11 17:13] VITALS: O2SAT 100
== END 2017-03-11 17:29 | disposition home or self-care (01) ==
LOC: ED 14:32
DX: I10 Essential (primary) hypertension (principal); R51 Headache
CPT/HCPCS: 36000; 36415; 80053; 81002; 82805; 85025; 93005; 96372; 99284; J3410; A9270-GY

== ENCOUNTER 2017-03-22 02:25 | Emergency (ER) | payer MEDICARE, SELFPAY ==
[2017-03-22] MEDS ORDERED: TYLENOL 325 MG PO ONE (03:08)
[2017-03-22] MEDS ORDERED: Vistaril 50 MG/ML IM ONE (03:08)
--- NOTE | 2017-03-22 03:08 | ERPHSYRPT ---
- History of Present Illness Time Seen by Provider: 03/22/17 03:03 Source: patient Exam Limitations: no limitations Physician History: 56-year-old white male arrives with complaint of feeling like his blood pressure up states he had some dizziness felt like he was having trouble focusing his eyes symptoms at approximately 8:00. He has a left anterior chest pain worse with breathing which he states is chronic and is musculoskeletal which is been going on all day. Patient also states she's felt short of breath all day. Patient was seen approximately a week ago here in the emergency room secondary to elevated blood pressure he resolved with a shot of Vistaril and Tylenol orally. Patient is on chronic pain medications she is hydrocodone 10/325 as well as Soma he states he took both of these at 11:00 tonight. Past medical history includes migraines, high blood pressure, asthma, hypoglycemia, osteoarthritis, ulcers, prostate problems, ORIF left ankle, multiple back surgeries, numbness in the bilateral lower legs. Past surgical history includes appendectomy and multiple orthopedic surgeries. Timing/Duration: other (chronic chest pain all day yesterday, headache trouble focusing his eyes since 8:00 last night) Severity: moderate Modifying Factors: Improves With: medication (patient states he took [place] and Soma at 11:00) Associated Symptoms: nausea, shortness of breath, chest pain, headaches, No vomiting, No abdominal pain, No heartburn, No diaphoresis, No cough, No chills, No fever, No loss of appetite, No malaise, No rash, No syncope, No seizure Allergies/Adverse Reactions: gabapentin Allergy (Severe, Verified 02/20/17 07:27) Tightness of Throat rash and itch morphine Allergy (Severe, Verified 02/20/17 07:27) Rapid Heart Beat states "like anxiety" iodine Allergy (Verified 02/20/17 07:27) Home Medications: Hydrocodone/APAP 10/325 mg [[place] 10/325 MG Tablet] 1 tab PO QID 04/06/13 [History] Carvedilol 3.125 mg [Coreg 3.125 MG] 6.25 mg PO BID 03/03/16 [History] Carisoprodol 350 mg [Soma 350 mg] 350 mg PO QID 05/02/16 [History] Tamsulosin HCl 0.4 mg [Flomax 0.4 MG] 0.4 mg PO QHS 09/20/16 [History] Hx Tetanus, Diphtheria Vaccination/Date Given: No Hx Influenza Vaccination/Date Given: No Hx Pneumococcal Vaccination/Date Given: No - Review of Systems Constitutional: No Fever, No Chills Eyes: No Symptoms, Vision Changes Ears, Nose, & Throat: No Symptoms, No Ear Pain, No Ear Discharge, No Hearing Changes, No Tinnitus, No Nose Pain, No Nose Congestion, No Nose Discharge, No Sinus Drainage, No Epistaxis, No Mouth Pain, No Mouth Swelling, No Loose Teeth, No Throat Pain, No Throat Swelling Respiratory: Dyspnea, No Cough, No Cyanosis, No Dyspnea on Exertion (HANNA), No Stridor, No Wheezing Cardiac: Chest Pain Abdominal/Gastrointestinal: No Abdominal Pain, No Nausea, No Vomiting, No Diarrhea Musculoskeletal: No Back Pain, No Neck Pain Skin: No Rash Neurological: Headache, No Dizziness, No Focal Weakness, No Gait Changes, No Irritability, No Lethargy, No Paralysis, No Parasthesia, No Seizure, No Sensory Changes, No Speech Changes, No Tics, No Tremors, No Vertigo Psychological: No Symptoms Endocrine: No Symptoms All Other Systems: Reviewed and Negative - Past Medical History Pertinent Past Medical History: Yes Neurological History: Migraines ENT History: No Pertinent History Cardiac History: Hypertension Respiratory History: Asthma Endocrine Medical History: Hypoglycemia Musculoskeletal History: Osteoarthritis GI Medical History: Ulcer History: Other Psycho-Social History: No Pertinent History Male Reproductive Disorders: Prostate Problems Other Medical History: Metal plate in the L ankle, multiple back surgeries. Notes numbness in B LE - Past Surgical History Past Surgical History: Yes Neuro Surgical History: No Pertinent History Cardiac: No Pertinent History Respiratory: No Pertinent History Gastrointestinal: Appendectomy Genitourinary: No Pertinent History Musculoskeletal: Orthopedic Surgery Male Surgical History: No Pertinent History Other Surgical History: 20+ orthopedic surgeries following fall while on the job. - Social History Smoking Status: Former smoker How long have you smoked: 5 Exposure to second hand smoke: No Drug Use: none Patient Lives Alone: No - Nursing Vital Signs Nursing Vital Signs: Initial Vital Signs Temperature 98.9 F 03/22/17 03:05 Pulse Rate 83 03/22/17 03:05 Respiratory Rate 20 03/22/17 03:05 Blood Pressure 144/100 03/22/17 03:05 O2 Sat by Pulse Oximetry 97 03/22/17 03:05 Pain Scale Pain Intensity 4 - Physical Exam General Appearance: no apparent distress, alert Eye Exam: PERRL/EOMI, eyes nml inspection Ears, Nose, Throat Exam: normal ENT inspection, TMs normal, pharynx normal, moist mucous membranes Neck Exam: normal inspection, non-tender, supple, full range of motion Respiratory Exam: normal breath sounds, lungs clear, No respiratory distress Cardiovascular Exam: regular rate/rhythm, normal heart sounds, normal peripheral pulses Gastrointestinal/Abdomen Exam: soft, normal bowel sounds, No tenderness, No mass Back Exam: normal inspection, normal range of motion, No CVA tenderness, No vertebral tenderness Extremity Exam: normal inspection, normal range of motion, pelvis stable Neurologic Exam: alert, oriented x 3, cooperative, ignition mechanic 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 tested, normal mood/affect, nml cerebellar function, nml station & gait, sensation nml, abnormal ignition mechanic II-XII, No motor deficits, No sensory deficit, No disoriented, No confusion, No agitation, No uncooperative, No intoxicated appearance, No depressed mood/affect, No motor weakness, No facial droop, No slurred speech, No aphasia, No dysarthria, No abnormal gait, No abnormal cerebellar tests Skin Exam: normal color, warm, dry, No rash SpO2 Interpretation: normal (97%) - Course Nursing assessment & vital signs reviewed: Yes EKG Interpreted by Me: RATE (79 bpm), Sinus Rhythm, NORMAL AXIS, Other (EKG: Sinus rhythm, 79 bpm, normal axis, no acute ST or T wave changes, normal EKG) - Radiology Exams Chest X-ray Interpretation: Interpreted by me (chest x-ray: No acute disease process noted) Ordered Tests: Active Orders 24 hr Category Date Time Status Fur Ironer STAT Care 03/22/17 03:01 Active EKG-ER Only STAT Care 03/22/17 03:01 Active Pulse Oximetry (ED) STAT Care 03/22/17 03:01 Active CHEST 1 VIEW (PORTABLE) Stat Exams 03/22/17 03:01 Taken CBC W DIFF Stat Lab 03/22/17 03:00 Completed CMP Stat Lab 03/22/17 03:00 Completed TROPONIN Q3H Lab 03/22/17 03:00 Completed TROPONIN Q3H Lab 03/22/17 06:15 Ordered TROPONIN Q3H Lab 03/22/17 09:15 Ordered TROPONIN Q3H Lab 03/22/17 12:15 Ordered TROPONIN Q3H Lab 03/22/17 15:15 Ordered Medication Summary Discontinued Medications Generic Name Dose Route Start Last Admin Trade Name Ace PRN Reason Stop Dose Admin Acetaminophen 975 mg 03/22/17 03:08 03/22/17 03:17 Tylenol 325 Mg PO 03/22/17 03:09 975 mg STAT ONE Administration Acetaminophen Confirm 03/22/17 03:12 Tylenol 325 Mg Administered 03/22/17 03:13 Dose 975 mg .ROUTE .STK-MED ONE Hydroxyzine HCl 50 mg 03/22/17 03:08 03/22/17 03:18 Vistaril 50 Mg/Ml IM 03/22/17 03:09 50 mg STAT ONE Administration Hydroxyzine HCl Confirm 03/22/17 03:12 Vistaril 100mg/2ml Administered 03/22/17 03:13 Dose 100 mg IM .STK-MED ONE Ceftriaxone Sodium/Dextrose 1 g in 50 mls @ 100 mls/hr 03/22/17 03:51 04:03 Rocephin 1 Gm-D5w 50 Ml Bag IV 03/22/17 04:20 Not Given STAT STA Lab/Rad Data: Laboratory Result Diagrams 03/22/17 03:00 03/22/17 03:00 Laboratory Results 03/22/17 03/22/17 03/22/17 Range/Units 03:00 03:00 03:00 WBC 5.7 (4.0-10.5) K/mm3 RBC 4.38 (4.1-5.6) M/mm3 Hgb 13.6 (12.5-18.0) gm/dl Hct 42.5 (42-50) % MCV 97.0 (78-100) fl MCH 31.1 (26-32) pg MCHC 32.0 (32-36) g/dl RDW 12.4 (11.5-14.0) % Plt Count 237 (150-450) K/mm3 MPV 9.5 (6-9.5) fl Gran % 50.0 (36.0-66.0) % Lymphocytes % 37.2 (24.0-44.0) % Monocytes % 10.1 (0.0-12.0) % Eosinophils % 2.4 (0.00-5.0) % Basophils % 0.3 (0.0-0.4) % Basophils # 0.02 (0-0.4) Sodium 137 (136-145) mEq/L Potassium 3.9 (3.5-5.1) mEq/L Chloride 101 (98-107) mEq/L Carbon Dioxide 28.6 (21-32) mEq/L Anion Gap 11.3 (5-15) MEQ/L BUN 10 (9-20) mg/dL Creatinine 0.93 (0.55-1.30) mg/dl Estimated GFR > 60 ML/MIN Glucose 97 (70-110) MG/DL Calcium 9.1 (8.5-10.1) mg/dL Total Bilirubin 0.20 (0.2-1.0) mg/dL AST 20 (15-37) U/L ALT 26 (12-78) U/L Alkaline Phosphatase 81 (46-116) U/L Troponin I < 0.017 (0.000-0.056) ng/ml Serum Total Protein 7.5 (6.4-8.2) gm/dL Albumin 3.8 (3.4-5.0) g/dL - Progress Progress: improved Progress Note: 03/22/17 04:36 56-year-old white male who complaint of a headache blurry vision felt like his blood pressure was high states his blood pressure was high at home comes to the emergency room. He states that he had had pain in his anterior chest left side which she states is chronic and has been told it is musculoskeletal there is worse with breathing he was short of breath. Patient has a normal EKG patient's blood pressure was elevated. Patient was seen for the similar symptoms one week ago he was given Tylenol and Vistaril. Patient was given Tylenol 975 mg Vistaril 50 mg IM today here in the emergency room. He is feeling markedly better he has no more pain no headache no blurry vision no chest pain. EKG is normal troponin normal labs are normal. I have offered the patient to repeat his troponin he does not want this. Will give patient aspirin plan to discharge. Diagnoses high blood pressure. Noncardiac chest pain - Departure Time of Disposition: 04:39 Departure Disposition: Home Clinical Impression: Non-cardiac chest pain Hypertension Qualifiers: Hypertension type: unspecified Qualified Code(s): I10 - Essential (primary) hypertension Condition: Fair Critical Care Time: No Referrals: KYLAH SAENZ MD [Primary Care Provider] - Additional Instructions: Return home. Rest. Continue your blood pressure medications as prescribed by your director of strategic partnerships/ family doctor. Return for acute distress or for severe symptoms. Contact your family doctor tomorrow and schedule follow-up appointment.
[2017-03-22] MEDS ORDERED: VISTARIL 100MG/2ML IM ONE (03:12)
[2017-03-22] MEDS ORDERED: TYLENOL 325 MG ONE (03:12)
[2017-03-22 03:25] LABS: BASOPHIL % 0.3 % (0.0-0.4); Basophil (Absolute #) 0.02 (0-0.4); Eosinophil % 2.4 % (0.00-5.0); Eosinophil (Absolute #) 0.14 (0-0.5); Granulocyte Absolute (ANC) 2.85 (1.4-6.9); Hematocrit 42.5 % (42-50); Hemoglobin 13.6 gm/dl (12.5-18.0); Lymphocyte (Absolute #) 2.13 (1.0-4.6); Lymphocytes % 37.2 % (24.0-44.0); Mean Corpuscular Hemoglobin 31.1 pg (26-32); Mean Platelet Volume 9.5 fl (6-9.5); Monocyte (Absolute #) 0.58 (0.0-1.3); Monocytes % 10.1 % (0.0-12.0); Platelet Count 237 K/mm3 (150-450); Red Blood Count 4.38 M/mm3 (4.1-5.6); Red Cell Distribution Width 12.4 % (11.5-14.0); White Blood Count 5.7 K/mm3 (4.0-10.5)
[2017-03-22 03:45] LABS: ALBUMIN 3.8 g/dL (3.4-5.0); ALKALINE PHOSPHATASE 81 U/L (46-116); ANION GAP 11.3 MEQ/L (5-15); CHLORIDE 101 mEq/L (98-107); Calcium 9.1 mg/dL (8.5-10.1); Carbon Dioxide 28.6 mEq/L (21-32); Creatinine 1 0.93 mg/dl (0.55-1.30); EST GLOMERULAR FILTRATION RATE > 60 ML/MIN; Glucose 97 MG/DL (70-110); Potassium 3.9 mEq/L (3.5-5.1); SGOT/AST 20 U/L (15-37); SGPT/ALT 26 U/L (12-78); SODIUM 137 mEq/L (136-145); Total Protein 7.5 gm/dL (6.4-8.2)
[2017-03-22] MEDS ORDERED: ROCEPHIN 1 Gm-D5w 50 ml Bag** 1 G/50 ML IVPB IV STA (03:51)
[2017-03-22 04:08] LABS: BLOOD UREA NITROGEN 10 mg/dL (9-20)
[2017-03-22 04:33] VITALS: BP 103/73; PULSE 84
[2017-03-22] MEDS ORDERED: BABY ASPIRIN 81 MG CHEW PO ONE (04:40)
[2017-03-22 04:51] VITALS: O2SAT 98
[2017-03-22] MEDS ORDERED: BABY ASPIRIN 81 MG CHEW ONE (07:58)
--- NOTE | 2017-03-22 09:00 | XRAY ---
Indication: Chest pain. High blood pressure. Comparison: September 20, 2016. Portable chest again demonstrates normal heart, lungs, and bony thorax with a few incidental calcified granulomas.
== END 2017-03-22 05:03 | disposition home or self-care (01) ==
LOC: ED 02:25
DX: R07.89 Other chest pain (principal); R51 Headache; H53.8 Other visual disturbances; I10 Essential (primary) hypertension
CPT/HCPCS: 36000; 36415; 71045; 80053; 84484; 85025; 93005; 93041; 96372; 99284; J3410; A9270-GY

== ENCOUNTER 2018-08-14 17:38 | Emergency (ER) | payer MEDICARE ==
[2018-08-14] MEDS ORDERED: Sodium Chloride 0.9% 1000 ML 1,000 ML IV STA (18:06)
[2018-08-14] MEDS ORDERED: SUBLIMAZE 100 MCG/2 ML IV ONE (18:06)
[2018-08-14] MEDS ORDERED: SUBLIMAZE 100 MCG/2 ML ONE (18:12)
[2018-08-14] MEDS ORDERED: Sodium Chloride 0.9% 1000 ML 1,000 ML ONE (18:12)
--- NOTE | 2018-08-14 18:12 | ERPHSYRPT ---
- History of Present Illness Historian: patient Exam Limitations: no limitations Patient Subjective Stated Complaint: Pain in the lower medial abdomen/groin area , feels like "something is just emptying in me", pain is deep inside, pain radiates up to his neck, feels like all his blood is getting pushed upward Triage Nursing Assessment: Pt walked into the ER with an unstable gait and bent over and holding his lower abdomen, tachycardic, appears to be in significant pain, hx of prostate problems and takes flomax, had not taken it for several days, states that he feels like he's going to pass out Timing/Duration: yesterday Activities at Onset: other (ddriving) Quality: sharpness Abdominal Pain Onset Location: suprapubic Pain Radiation: other (radiates up into abdomen) Severity of Pain-Current: moderate Modifying Factors: Improves With: analgesics (patient is chronically onhydrocodone at home) Associated Symptoms: back, No chest pain, No diaphoresis, No diarrhea, No fever/ chills, No fatigue, No headache, No heartburn, No loss of appetite, No nausea, No neck pain, No rash, No shortness of breath, No syncope, No testicular pain, No vomiting, No weakness Previous symptoms: no prior history Hx Tetanus, Diphtheria Vaccination/Date Given: No Hx Influenza Vaccination/Date Given: No Hx Pneumococcal Vaccination/Date Given: No <ZE AVILES - Last Filed: 08/14/18 19:04> <KEVIN SALAZAR - Last Filed: 08/14/18 19:53> - History of Present Illness Time Seen by Provider: 08/14/18 18:01 Physician History: 57-year-old white male arrives with complaint of pain in the suprapubic region since yesterday states the pain is sharp severe states it began while driving yesterday and then recurred today. No vomiting no diarrhea. Past medical history includes migraines, high blood pressure, asthma, fibromyalgia, osteoarthritis, ulcers, prostate problems, ORIF left ankle, multiple back surgeries, numbness bilateral legs, chronic pain Past surgical history includes appendectomy, multiple orthopedic surgeries ( ZE AVILES) Allergies/Adverse Reactions: gabapentin Allergy (Severe, Verified 08/14/18 17:54) Tightness of Throat rash and itch morphine Allergy (Severe, Verified 08/14/18 17:54) Rapid Heart Beat states "like anxiety" iodine Allergy (Verified 08/14/18 17:54) Home Medications: Hydrocodone/APAP 10/325 mg [[place] 10/325 MG Tablet] 1 tab PO QID 04/06/13 [History] Carisoprodol 350 mg [Soma 350 mg] 350 mg PO QID 05/02/16 [History] Tamsulosin HCl 0.4 mg [Flomax 0.4 MG] 0.4 mg PO QHS 09/20/16 [History] Nebivolol HCl 5 MG [Bystolic 5 MG] 5 mg PO DAILY 08/14/18 [History] Pravastatin Sodium [Pravachol] 10 mg PO DAILY 08/14/18 [History] - Review of Systems Constitutional: No Fever, No Chills Eyes: No Symptoms Ears, Nose, & Throat: No Symptoms Respiratory: No Cough, No Dyspnea Cardiac: No Chest Pain, No Edema, No Syncope Abdominal/Gastrointestinal: Abdominal Pain (suprapubic abdominal pain), No Nausea, No Vomiting, No Diarrhea, No Constipation, No Hematemesis, No Hematochezia, No Melena, No Dysphagia, No Appetite Changes Genitourinary Symptoms: No Dysuria Musculoskeletal: No Back Pain, No Neck Pain Skin: No Rash Neurological: No Dizziness, No Focal Weakness, No Sensory Changes Psychological: No Symptoms Endocrine: No Symptoms All Other Systems: Reviewed and Negative <ZE AVILES - Last Filed: 08/14/18 19:04> - Past Medical History Pertinent Past Medical History: Yes Neurological History: Migraines ENT History: No Pertinent History Cardiac History: Hypertension Respiratory History: Asthma Endocrine Medical History: Hypoglycemia Musculoskeletal History: Osteoarthritis GI Medical History: Ulcer History: Other Psycho-Social History: No Pertinent History Male Reproductive Disorders: Prostate Problems Other Medical History: Metal plate in the L ankle, multiple back surgeries. Notes numbness in B LE - Past Surgical History Past Surgical History: Yes Neuro Surgical History: No Pertinent History Cardiac: No Pertinent History Respiratory: No Pertinent History Gastrointestinal: Appendectomy Genitourinary: No Pertinent History Musculoskeletal: Orthopedic Surgery Male Surgical History: No Pertinent History Other Surgical History: 20+ orthopedic surgeries following fall while on the job. - Social History Smoking Status: Former smoker How long have you smoked: 5 Exposure to second hand smoke: No Drug Use: none Patient Lives Alone: No <TRACIZE HELDER - Last Filed: 08/14/18 19:04> - Physical Exam General Appearance: moderate distress, alert Eye Exam: PERRL/EOMI, eyes nml inspection Ears, Nose, Throat Exam: normal ENT inspection, pharynx normal, moist mucous membranes Neck Exam: normal inspection, non-tender, supple, full range of motion Respiratory Exam: normal breath sounds, lungs clear, No respiratory distress Cardiovascular Exam: regular rate/rhythm, normal heart sounds, capillary refill <2 sec Gastrointestinal/Abdomen Exam: soft, normal bowel sounds, other (no tenderness with palpation), No tenderness Male Genitalia Exam: normal genitalia, other (normal male genitalia testicles descended bilaterally) Back Exam: normal inspection, normal range of motion, No CVA tenderness, No vertebral tenderness Extremity Exam: normal inspection, normal range of motion, pelvis stable Neurologic Exam: alert, oriented x 3, cooperative, hogshead cooper 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 tested, normal mood/affect, nml cerebellar function, sensation nml, No motor deficits Skin Exam: normal color, warm, dry SpO2 Interpretation: normal (98%) SpO2: 98 <TRACIZE HELDER - Last Filed: 08/14/18 19:04> - Nursing Vital Signs Nursing Vital Signs: Initial Vital Signs Pulse Rate 108 H 08/14/18 17:44 Blood Pressure 138/99 08/14/18 17:44 O2 Sat by Pulse Oximetry 98 08/14/18 17:44 Pain Scale Pain Intensity 6 Ordered Tests: Active Orders 24 hr Category Date Time Status IV Insertion STAT Care 08/14/18 17:52 Active ABDOMEN AND PELVIS W/0 CONTRAS [CT] Stat Exams 08/14/18 18:39 Taken AMYLASE Stat Lab 08/14/18 18:10 Completed CBC W DIFF Stat Lab 08/14/18 18:10 Completed CMP Stat Lab 08/14/18 18:10 Completed LIPASE Stat Lab 08/14/18 18:10 Completed UA W/RFX UR CULTURE Stat Lab 08/14/18 19:21 Completed Medication Summary Discontinued Medications Generic Name Dose Route Start Last Admin Trade Name Freq PRN Reason Stop Dose Admin Amlodipine Besylate 5 mg 08/14/18 18:16 08/14/18 18:23 Norvasc 5 Mg PO 08/14/18 18:17 Not Given STAT ONE Fentanyl Citrate 100 mcg 08/14/18 18:06 08/14/18 18:19 Sublimaze 100 Mcg/2 Ml IV 08/14/18 18:07 100 mcg STAT ONE Administration Fentanyl Citrate Confirm 08/14/18 18:12 Sublimaze 100 Mcg/2 Ml Administered 08/14/18 18:13 Dose 100 mcg .ROUTE .STK-MED ONE Sodium Chloride 1,000 mls @ 999 mls/hr 08/14/18 18:06 08/14/18 19:21 Sodium Chloride 0.9% 1000 Ml IV 08/14/18 19:06 Infused .Q1H1M STA Infusion Sodium Chloride Confirm 08/14/18 18:12 Sodium Chloride 0.9% 1000 Ml Administered 08/14/18 18:13 Dose 1,000 mls @ ud .ROUTE .STK-MED ONE Lidocaine HCl 200 mg 08/14/18 19:11 08/14/18 19:21 Xylocaine 2% Uro-Jet TOP 08/14/18 19:12 200 mg STAT ONE Administration Lidocaine HCl Confirm 08/14/18 19:13 Xylocaine 2% Uro-Jet Administered 08/14/18 19:14 Dose 200 mg .ROUTE .STK-MED ONE Lab/Rad Data: Laboratory Result Diagrams 08/14/18 18:10 08/14/18 18:10 Laboratory Results 08/14/18 08/14/18 08/14/18 Range/Units 19:21 18:10 18:10 WBC 10.6 H (4.0-10.5) K/mm3 RBC 4.91 (4.1-5.6) M/mm3 Hgb 15.4 (12.5-18.0) gm/dl Hct 46.7 (42-50) % MCV 95.1 (78-100) fl MCH 31.4 (26-32) pg MCHC 33.0 (32-36) g/dl RDW 12.8 (11.5-14.0) % Plt Count 266 (150-450) K/mm3 MPV 9.8 H (6-9.5) fl Gran % 58.9 (36.0-66.0) % Eos # (Auto) 0.19 (0-0.5) Absolute Lymphs (auto) 3.14 (1.0-4.6) Absolute Monos (auto) 1.01 (0.0-1.3) Lymphocytes % 29.6 (24.0-44.0) % Monocytes % 9.5 (0.0-12.0) % Eosinophils % 1.8 (0.00-5.0) % Basophils % 0.2 (0.0-0.4) % Absolute Granulocytes 6.24 (1.4-6.9) Basophils # 0.02 (0-0.4) Sodium 139 (137-145) mmol/L Potassium 4.1 (3.5-5.1) mmol/L Chloride 99 (98-107) mmol/L Carbon Dioxide 27 (22-30) mmol/L Anion Gap 16.1 H (5-15) MEQ/L BUN 9 (9-20) mg/dL Creatinine 0.91 (0.66-1.25) mg/dL Estimated GFR > 60.0 ML/MIN Glucose 86 (74-106) mg/dL Calcium 10.1 (8.4-10.2) mg/dL Total Bilirubin 0.40 (0.2-1.3) mg/dL AST 25 (17-59) U/L ALT 21 (0-50) U/L Alkaline Phosphatase 101 (38-126) U/L Serum Total Protein 8.4 H (6.3-8.2) g/dL Albumin 4.7 (3.5-5.0) g/dL Amylase 85 (30-110) U/L Lipase 76 (23-300) U/L Urine Color YELLOW (YELLOW) Urine Appearance CLEAR (CLEAR) Urine pH 6.0 (5-6) Ur Specific Calvin 1.019 (1.005-1.025) Urine Protein NEGATIVE (Negative) Urine Ketones NEGATIVE (NEGATIVE) Urine Blood NEGATIVE (0-5) Sean/ul Urine Nitrite NEGATIVE (NEGATIVE) Urine Bilirubin NEGATIVE (NEGATIVE) Urine Urobilinogen NEGATIVE (0-1) mg/dL Ur Leukocyte Esterase NEGATIVE (NEGATIVE) Urine WBC (Auto) NONE (0-5) /HPF Urine RBC (Auto) NONE (0-2) /HPF U Hyaline Cast (Auto) 0-2 (0-2) /LPF U Epithel Cells (Auto) NONE (FEW) /HPF Urine Bacteria (Auto) NONE (NEGATIVE) /HPF Urine Mucus (Auto) SLIGHT (NEGATIVE) /HPF Urine Culture Reflexed NO (NO) Urine Glucose NEGATIVE (NEGATIVE) mg/dL - Progress Progress: improved <ZE AVILES - Last Filed: 08/14/18 19:04> - Progress Will see patient in: office Counseled pt/family regarding: need for follow-up <KEVIN SALAZAR - Last Filed: 08/14/18 19:53> - Progress Progress Note: 08/14/18 19:02 the patient's case was turned over to Dr Salazar due to shift change. The patient's case was discussed with Dr Salazar. (ZE AVILES) 08/14/18 19:50 Pt had lab work, UA and CT of abdomen. Lab work was normal, and UA was clear. Ct showed increase in stool burden. I did explain to the pt that if it is his back, as he worries about, he will need to have MRI. At this point CT did not show any changes, or any pathology besides constipation. Pt is encouraged to f/ u with his PCP. (KEVIN SALAZAR) <ZE AVILES - Last Filed: 08/14/18 19:04> - Departure Departure Disposition: Home Critical Care Time: No <KEVIN SALAZAR - Last Filed: 08/14/18 19:53> - Departure Clinical Impression: Abdominal pain Condition: Stable Referrals: KYLAH SAENZ MD [Primary Care Provider] - Additional Instructions: Use Miralax BID for constipation. F/U with your PCP and with your back surgeon for MRI, if needed.
[2018-08-14] MEDS ORDERED: NORVASC 5 MG PO ONE (18:16)
[2018-08-14 18:19] LABS: BASOPHIL % 0.2 % (0.0-0.4); Basophil (Absolute #) 0.02 (0-0.4); Eosinophil % 1.8 % (0.00-5.0); Eosinophil (Absolute #) 0.19 (0-0.5); Granulocyte Absolute (ANC) 6.24 (1.4-6.9); Granulocytes % 58.9 % (36.0-66.0); Hematocrit 46.7 % (42-50); Hemoglobin 15.4 gm/dl (12.5-18.0); Lymphocyte (Absolute #) 3.14 (1.0-4.6); Lymphocytes % 29.6 % (24.0-44.0); Mean Cell Volume 95.1 fl (78-100); Mean Corpuscular Hemoglobin 31.4 pg (26-32); Mean Platelet Volume 9.8 fl (6-9.5); Monocyte (Absolute #) 1.01 (0.0-1.3); Monocytes % 9.5 % (0.0-12.0); Platelet Count 266 K/mm3 (150-450); Red Blood Count 4.91 M/mm3 (4.1-5.6); Red Cell Distribution Width 12.8 % (11.5-14.0); White Blood Count 10.6 K/mm3 (4.0-10.5)
[2018-08-14 18:31] LABS: ALBUMIN 4.7 g/dL (3.5-5.0); ALKALINE PHOSPHATASE 101 U/L (38-126); AMYLASE 85 U/L (30-110); ANION GAP 16.1 MEQ/L (5-15); BLOOD UREA NITROGEN 9 mg/dL (9-20); CHLORIDE 99 mmol/L (98-107); Calcium 10.1 mg/dL (8.4-10.2); Carbon Dioxide 27 mmol/L (22-30); Creatinine 1 0.91 mg/dL (0.66-1.25); Glucose 86 mg/dL (74-106); LIPASE 76 U/L (23-300); Potassium 4.1 mmol/L (3.5-5.1); SGOT/AST 25 U/L (17-59); SGPT/ALT 21 U/L (0-50); SODIUM 139 mmol/L (137-145); Total Protein 8.4 g/dL (6.3-8.2)
[2018-08-14] MEDS ORDERED: XYLOCAINE 2% Uro-Jet TOP ONE (19:11)
[2018-08-14] MEDS ORDERED: XYLOCAINE 2% Uro-Jet ONE (19:13)
[2018-08-14 19:34] LABS: Appearance CLEAR (CLEAR); Bilirubin NEGATIVE (NEGATIVE); Blood NEGATIVE Ery/ul (0-5); Glucose NEGATIVE (NEGATIVE); Hyaline Casts 0-2 /LPF (0-2); Ketones NEGATIVE (NEGATIVE); Leukocyte Esterase NEGATIVE (NEGATIVE); Mucus SLIGHT /HPF (NEGATIVE); Nitrite NEGATIVE (NEGATIVE); Protein,Urine Dip NEGATIVE (Negative); Specific Gravity 1.019 (1.005-1.025); Urobilinogen NEGATIVE mg/dL (0-1)
[2018-08-14 20:21] VITALS: BP 147/109; PULSE 87; O2SAT 100
--- NOTE | 2018-08-15 08:45 | XRAY ---
Indication: Difficulty urinating. Dark urine. Low back pain. Multiple contiguous axial images obtained through the abdomen and pelvis without contrast as ordered. Comparison: April 03, 2015. Lung bases demonstrates stable tiny right base calcified granuloma. No infiltrate or effusion. Heart is not enlarged. Noncontrasted stomach and bowel loops appear nonobstructed. Again previous appendectomy and tiny calcified splenic granulomas. No free fluid/air. There is now mild diffuse scattered colonic fecal debris throughout. Remaining liver, gallbladder, pancreas, spleen, adrenal glands, kidneys, ureters, and bladder appear unremarkable for noncontrast exam. There remains mild aortoiliac calcifications without AAA. Osseous structures intact again with mild degenerative changes. No ventral or inguinal hernias. Impression: 1. New mild diffuse fecal stasis without obstruction. 2. Again evidence for old granulomatous disease. 3. Remaining CT abdomen/pelvis without contrast exam is negative. CT DI 18.31
== END 2018-08-14 20:35 | disposition home or self-care (01) ==
LOC: ED 17:38
DX: R10.9 Unspecified abdominal pain (principal); Z79.899 Other long term (current) drug therapy; Z79.891 Long term (current) use of opiate analgesic
CPT/HCPCS: 36000; 36415; 74176; 80053; 81001; 82150; 83690; 85025; 96360; 96374; 99284; J3010

== ENCOUNTER 2020-12-09 03:41 | Observation (INO) | payer MEDICARE ==
[2020-12-09] MEDS ORDERED: Sodium Chloride 0.9% 1000 ML 1,000 ML IV STA (03:48)
[2020-12-09] MEDS ORDERED: Zofran 4 MG/2 ML VIAL IV ONE (03:48)
--- NOTE | 2020-12-09 03:53 | ERPHSYRPT ---
- History of Present Illness Time Seen by Provider: 12/09/20 03:55 Historian: patient Exam Limitations: no limitations Physician History: Patient is a 59-year-old male presents to our ED with complaints of nausea and vomiting. Patient states he developed diarrhea on Monday into Monday. Today at approximately 6 PM he was unable to tolerate p.o. Patient feels nauseous. He advises that he is also experiencing body aches and URI symptomology. Patient has nasal drainage and feels slightly dizzy. Patient also has a occasional intermittent cough. No shortness of breath. No chest pain. No diaphoresis. Symptoms are mild to moderate in intensity. No specific worsening improving factors. Patient voices no other complaints or concerns at this time. Timing/Duration: day(s) (3 days) Activities at Onset: none Quality: aching Abdominal Pain Onset Location: LUQ Pain Radiation: no radiation Severity of Pain-Max: moderate Severity of Pain-Current: mild Modifying Factors: Improves With: nothing Associated Symptoms: diarrhea, nausea, vomiting, other (Dizziness body aches. URI symptomology.), No chest pain, No diaphoresis Previous symptoms: no prior history Allergies/Adverse Reactions: gabapentin Allergy (Severe, Verified 12/09/20 04:01) Tightness of Throat rash and itch morphine Allergy (Severe, Verified 12/09/20 04:01) Rapid Heart Beat states "like anxiety" iodine Allergy (Verified 12/09/20 04:01) Home Medications: Hydrocodone/APAP 10/325 mg [[place] 10/325 MG TableT] 1 tab PO QID 04/06/13 [History] Carisoprodol 350 mg [Soma 350 mg] 350 mg PO QID 05/02/16 [History] Tamsulosin HCl 0.4 mg [Flomax 0.4 MG] 0.4 mg PO QHS 09/20/16 [History] Pravastatin Sodium [Pravachol] 10 mg PO DAILY 08/14/18 [History] Fluticasone/Vilanterol [Breo Ellipta 100-25 Mcg INH] 1 puff IH DAILY 12/09/20 [History] Hx Tetanus, Diphtheria Vaccination/Date Given: No Hx Influenza Vaccination/Date Given: No Hx Pneumococcal Vaccination/Date Given: No - Review of Systems Constitutional: No Symptoms, No Fever, No Chills Eyes: No Symptoms Ears, Nose, & Throat: No Symptoms Respiratory: No Symptoms, No Cough, No Dyspnea Cardiac: No Symptoms, No Chest Pain, No Edema, No Syncope Abdominal/Gastrointestinal: No Symptoms, No Abdominal Pain, No Nausea, No Vomiting, No Diarrhea Genitourinary Symptoms: No Symptoms, No Dysuria Musculoskeletal: No Symptoms, No Back Pain, No Neck Pain Skin: No Symptoms, No Rash Neurological: No Symptoms, No Dizziness, No Focal Weakness, No Sensory Changes Psychological: No Symptoms Endocrine: No Symptoms Hematologic/Lymphatic: No Symptoms Immunological/Allergic: No Symptoms All Other Systems: Reviewed and Negative - Past Medical History Pertinent Past Medical History: Yes Neurological History: No Pertinent History ENT History: No Pertinent History Cardiac History: High Cholesterol, Hypertension Respiratory History: Asthma Endocrine Medical History: No Pertinent History Musculoskeletal History: Degenerative Disk Disease, Fractures GI Medical History: Ulcer History: Other Psycho-Social History: No Pertinent History Male Reproductive Disorders: Prostate Problems Other Medical History: HX FX LEFT HEEL (ORIF WITH METAL PLATE), FX SHOULDER AND ROTATOR CUFF REPAIR, DEGENERATIVE DISK CERVICAL SPINE WITH 3 SURGERIES INCLUDING FUSION. ALSO BILATERAL CARPAL TUNNEL RELEASES AND SURGERY TO REATTACH WRIST EXTENSORS ON LEFT. ALSO HX FX RIBS. APPENDECTOMY. - Past Surgical History Past Surgical History: Yes Neuro Surgical History: No Pertinent History Cardiac: No Pertinent History Respiratory: No Pertinent History Gastrointestinal: Appendectomy Genitourinary: No Pertinent History Musculoskeletal: Orthopedic Surgery Male Surgical History: No Pertinent History Other Surgical History: 20+ orthopedic surgeries following fall while on the job. - Social History Smoking Status: Former smoker How long have you smoked: 5 Exposure to second hand smoke: No Drug Use: none Patient Lives Alone: No - Nursing Vital Signs Nursing Vital Signs: Initial Vital Signs Temperature 100.3 F 12/09/20 03:43 Pulse Rate 100 H 12/09/20 03:43 Respiratory Rate 18 12/09/20 03:43 Blood Pressure 158/92 12/09/20 03:43 O2 Sat by Pulse Oximetry 97 12/09/20 03:43 Pain Scale Pain Intensity 6 - Physical Exam General Appearance: no apparent distress, alert Eye Exam: PERRL/EOMI, eyes nml inspection Ears, Nose, Throat Exam: normal ENT inspection, pharynx normal, moist mucous membranes Neck Exam: normal inspection, non-tender, supple, full range of motion Respiratory Exam: normal breath sounds, lungs clear, airway intact, No chest tenderness, No respiratory distress Cardiovascular Exam: regular rate/rhythm, normal heart sounds Gastrointestinal/Abdomen Exam: soft, tenderness, other (Mild left lower abdominal pain.), No mass Back Exam: normal inspection, normal range of motion, No CVA tenderness, No vertebral tenderness Extremity Exam: normal inspection, normal range of motion, pelvis stable Neurologic Exam: alert, oriented x 3, cooperative, normal mood/affect, nml cerebellar function, sensation nml, No motor deficits Skin Exam: normal color, warm, dry Lymphatic Exam: No adenopathy SpO2 Interpretation: normal SpO2: 99 O2 Delivery: Room Air - Course Nursing assessment & vital signs reviewed: Yes - CT Exams Abdomen/Pelvis CT Interpretation: Tele-radiologist Report (Mild nonspecific ileus versus gastroenteritis) Ordered Tests: Medication Summary Discontinued Medications Generic Name Dose Route Start Last Admin Trade Name Freq PRN Reason Stop Dose Admin Hydrocodone Bitart/Acetaminophen 1 tablet 12/09/20 10:00 Hydrocodone-Acetamin 10-325 Mg PO 12/14/20 09:59 QID ANTHONY Hydrocodone Bitart/Acetaminophen 1 tablet 12/09/20 09:54 12/09/20 13:13 Hydrocodone-Acetamin 10-325 Mg PO 12/14/20 09:53 1 tablet QID PRN PRN Administration PAIN Carisoprodol 350 mg 12/09/20 10:00 Soma 350 Mg PO 01/08/21 09:59 QID ANTHONY Carisoprodol 350 mg 12/09/20 09:54 12/09/20 21:48 Soma 350 Mg PO 01/08/21 09:53 350 mg QID PRN PRN Administration spasm Dexamethasone Sodium Phosphate 6 mg 12/09/20 11:30 12/10/20 09:09 Decadron 10mg Inj. IV 01/08/21 11:29 6 mg DAILY ANTHONY Administration Diphenoxylate HCl/Atropine 1 tablet 12/09/20 10:32 Lomotil PO 01/08/21 10:31 Q4H PRN PRN DIARRHEA Hydromorphone HCl 0.5 mg 12/09/20 06:55 12/09/20 07:16 Hydromorphone 1 Mg/Ml Injection IV 12/09/20 06:56 0.5 mg STAT ONE Administration Hydromorphone HCl Confirm 12/09/20 07:15 Hydromorphone 1 Mg/Ml Injection Administered 12/09/20 07:16 Dose 1 mg .ROUTE .STK-MED ONE Hydromorphone HCl 0.5 mg 12/09/20 07:49 12/10/20 06:40 Hydromorphone 1 Mg/Ml Injection IV 12/14/20 07:48 0.5 mg Q4H PRN PRN Administration PAIN Sodium Chloride 1,000 mls @ 999 mls/hr 12/09/20 03:48 12/09/20 06:02 Sodium Chloride 0.9% 1000 Ml IV 12/09/20 04:48 Infused .Q1H1M STA Infusion Sodium Chloride Confirm 12/09/20 03:59 Sodium Chloride 0.9% 1000 Ml Administered 12/09/20 04:00 Dose 1,000 mls @ ud .ROUTE .STK-MED ONE Sodium Chloride Confirm 12/09/20 07:34 Sodium Chloride 0.9% 1000 Ml Administered 12/09/20 07:35 Dose 1,000 mls @ ud .ROUTE .STK-MED ONE Sodium Chloride 1,000 mls @ 100 mls/hr 12/09/20 07:49 12/10/20 02:10 Sodium Chloride 0.9% 1000 Ml IV 01/08/21 07:48 100 mls/hr .Q10H ANTHONY Administration Loratadine/Pseudoephedrine Sulfate 1 each 12/09/20 10:00 12/10/20 07:45 Claritin-D 24hr Tablet PO 01/08/21 09:59 1 each DAILY ANTHONY Administration Lorazepam 1 mg 12/09/20 12:00 12/09/20 11:14 Ativan 1 Mg PO 01/08/21 11:59 Not Given DAILY ANTHONY Lorazepam 1 mg 12/09/20 12:00 12/09/20 11:12 Ativan 2 Mg/1 Ml Vial IV 01/08/21 11:59 1 mg DAILY ANTHONY Administration Lorazepam 1 mg 12/09/20 11:25 12/09/20 21:43 Ativan 1 Mg PO 01/08/21 11:24 1 mg Q4H/PRN PRN Administration ANXIETY Lorazepam 1 mg 12/09/20 11:25 12/09/20 16:13 Ativan 2 Mg/1 Ml Vial IV 01/08/21 11:24 1 mg Q4H/PRN PRN Administration ANXIETY Ondansetron HCl 4 mg 12/09/20 03:48 12/09/20 04:01 Zofran 4 Mg/2 Ml Vial IV 12/09/20 03:49 4 mg STAT ONE Administration Ondansetron HCl Confirm 12/09/20 03:59 Zofran 4 Mg/2 Ml Vial Administered 12/09/20 04:00 Dose 4 mg .ROUTE .STK-MED ONE Ondansetron HCl 4 mg 12/09/20 07:49 12/09/20 09:14 Zofran 4 Mg/2 Ml Vial IV 01/08/21 07:48 4 mg Q6H PRN PRN Administration NAUSEA/VOMITING Ondansetron HCl 4 mg 12/09/20 09:54 12/09/20 21:43 Zofran 4 Mg/2 Ml Vial IV 01/08/21 09:53 4 mg Q4H PRN PRN Administration NAUSEA/VOMITING Breo Inhaler 1 each 12/10/20 07:00 12/10/20 07:45 IH 01/09/21 06:59 1 each 0700 ANTHONY Administration Simvastatin 10 mg 12/09/20 10:00 12/09/20 11:24 Zocor 10mg PO 01/08/21 09:59 Not Given DAILY ANTHONY Simvastatin 10 mg 12/09/20 22:00 Zocor 10mg PO 01/08/21 21:59 HS ANTHONY Simvastatin 10 mg 12/10/20 10:00 12/10/20 09:09 Zocor 10mg PO 01/09/21 09:59 10 mg DAILY ANTHONY Administration Tamsulosin HCl 0.4 mg 12/09/20 22:00 12/09/20 21:43 Flomax 0.4 Mg PO 01/08/21 21:59 0.4 mg QHS ANTHONY Administration Lab/Rad Data: Laboratory Result Diagrams 12/09/20 04:04 12/09/20 04:04 Laboratory Results 12/09/20 12/09/20 12/09/20 Range/Units 07:05 05:25 04:04 WBC (4.0-10.5) K/mm3 RBC (4.1-5.6) M/mm3 Hgb (12.5-18.0) gm/dl Hct (42-50) % MCV (78-100) fl MCH (26-32) pg MCHC (32-36) g/dl RDW (11.5-14.0) % Plt Count (150-450) K/mm3 MPV (7.5-11.0) fl Gran % (36.0-66.0) % Eos # (Auto) (0-0.5) Absolute Lymphs (auto) (1.0-4.6) Absolute Monos (auto) (0.0-1.3) Lymphocytes % (24.0-44.0) % Monocytes % (0.0-12.0) % Eosinophils % (0.00-5.0) % Basophils % (0.0-0.4) % Absolute Granulocytes (1.4-6.9) Basophils # (0-0.4) Sodium (137-145) mmol/L Potassium (3.5-5.1) mmol/L Chloride (98-107) mmol/L Carbon Dioxide (22-30) mmol/L Anion Gap (5-15) MEQ/L BUN (9-20) mg/dL Creatinine (0.66-1.25) mg/dL Estimated GFR ML/MIN Glucose (74-106) mg/dL Calcium (8.4-10.2) mg/dL Total Bilirubin (0.2-1.3) mg/dL AST (17-59) U/L ALT (0-50) U/L Alkaline Phosphatase (38-126) U/L Troponin I < 0.012 < 0.012 (0.000-0.034) ng/mL Serum Total Protein (6.3-8.2) g/dL Albumin (3.5-5.0) g/dL Lipase (23-300) U/L SARS-CoV-2 (PCR) POSITIVE A (NEGATIVE) 12/09/20 12/09/20 Range/Units 04:04 04:04 WBC 6.5 (4.0-10.5) K/mm3 RBC 4.90 (4.1-5.6) M/mm3 Hgb 15.0 (12.5-18.0) gm/dl Hct 45.5 (42-50) % MCV 92.9 (78-100) fl MCH 30.6 (26-32) pg MCHC 33.0 (32-36) g/dl RDW 12.6 (11.5-14.0) % Plt Count 251 (150-450) K/mm3 MPV 9.5 (7.5-11.0) fl Gran % 71.3 H (36.0-66.0) % Eos # (Auto) 0.10 (0-0.5) Absolute Lymphs (auto) 0.90 L (1.0-4.6) Absolute Monos (auto) 0.83 (0.0-1.3) Lymphocytes % 14.0 L (24.0-44.0) % Monocytes % 12.9 H (0.0-12.0) % Eosinophils % 1.6 (0.00-5.0) % Basophils % 0.2 (0.0-0.4) % Absolute Granulocytes 4.61 (1.4-6.9) Basophils # 0.01 (0-0.4) Sodium 133 L (137-145) mmol/L Potassium 4.0 (3.5-5.1) mmol/L Chloride 96 L (98-107) mmol/L Carbon Dioxide 24 (22-30) mmol/L Anion Gap 16.8 H (5-15) MEQ/L BUN 14 (9-20) mg/dL Creatinine 0.96 (0.66-1.25) mg/dL Estimated GFR > 60.0 ML/MIN Glucose 96 (74-106) mg/dL Calcium 9.7 (8.4-10.2) mg/dL Total Bilirubin 0.40 (0.2-1.3) mg/dL AST 34 (17-59) U/L ALT 31 (0-50) U/L Alkaline Phosphatase 117 (38-126) U/L Troponin I (0.000-0.034) ng/mL Serum Total Protein 8.3 H (6.3-8.2) g/dL Albumin 5.0 (3.5-5.0) g/dL Lipase 87 (23-300) U/L SARS-CoV-2 (PCR) (NEGATIVE) - Progress Progress: improved Progress Note: Patient reassessed. He feels better however still unable to tolerate p.o. Patient is Covid positive. Case discussed with Dr. Rangel who accepts admission to the observation unit. CT scan negative for acute intra-abdominal pathology. Will admit patient to our Covid unit for further evaluation and treatment. Plan of care discussed with patient. He agrees to admission [facility] for further evaluation and treatment. Patient voices no other complaints or concerns at this time. Portions of this note were created with voice recognition technology. There may be grammatical, spelling, punctuation or sound alike errors 12/15/20 07:15 Will see patient in: hospital (observation) Counseled pt/family regarding: lab results, diagnosis, rad results - Departure Departure Disposition: Home Clinical Impression: Nausea & vomiting, Diarrhea, Gastroenteritis, Ileus, Splenic granuloma Condition: Stable Critical Care Time: No
[2020-12-09] MEDS ORDERED: Sodium Chloride 0.9% 1000 ML 1,000 ML ONE ×2 (03:59→07:34)
[2020-12-09] MEDS ORDERED: Zofran 4 MG/2 ML VIAL ONE (03:59)
[2020-12-09 04:14] LABS: Absolute Neutrophil Ct (ANC) 4.61 (1.4-6.9); BASOPHIL % 0.2 % (0.0-0.4); Basophil (Absolute #) 0.01 (0-0.4); Eosinophil % 1.6 % (0.00-5.0); Hematocrit 45.5 % (42-50); Mean Cell Volume 92.9 fl (78-100); Mean Corpuscular Hemoglobin 30.6 pg (26-32); Mean Platelet Volume 9.5 fl (7.5-11.0); Monocyte (Absolute #) 0.83 (0.0-1.3); Monocytes % 12.9 % (0.0-12.0); Neutrophil % 71.3 % (36.0-66.0); Platelet Count 251 K/mm3 (150-450); Red Cell Distribution Width 12.6 % (11.5-14.0); White Blood Count 6.5 K/mm3 (4.0-10.5)
[2020-12-09 04:24] LABS: ALKALINE PHOSPHATASE 117 U/L (38-126); ANION GAP 16.8 MEQ/L (5-15); BLOOD UREA NITROGEN 14 mg/dL (9-20); CHLORIDE 96 mmol/L (98-107); Calcium 9.7 mg/dL (8.4-10.2); Carbon Dioxide 24 mmol/L (22-30); Creatinine 1 0.96 mg/dL (0.66-1.25); EST GLOMERULAR FILTRATION RATE > 60.0 ML/MIN; Glucose 96 mg/dL (74-106); LIPASE 87 U/L (23-300); SGOT/AST 34 U/L (17-59); SGPT/ALT 31 U/L (0-50); SODIUM 133 mmol/L (137-145); Total Protein 8.3 g/dL (6.3-8.2)
[2020-12-09] MEDS ORDERED: Hydromorphone 1 mg/ml Injection IV ONE (06:55)
[2020-12-09] MEDS ORDERED: Hydromorphone 1 mg/ml Injection ONE (07:15)
[2020-12-09] MEDS ORDERED: Zofran 4 MG/2 ML VIAL IV PRN (07:49)
[2020-12-09] MEDS: Sodium Chloride 0.9% 1000 ML 1,000 ML IV SCH ×2 (07:57→16:31)
--- NOTE | 2020-12-09 08:52 | XRAY ---
Indication: Abdomen pain, nausea, vomiting, and diarrhea. Multiple contiguous axial images obtained through the abdomen and pelvis without contrast. Comparison: August 14, 2018. Lung bases demonstrate stable tiny right base calcified granuloma. No infiltrate or effusion. Heart not enlarged. Noncontrasted stomach and bowel loops nonobstructed. Again appendectomy and tiny calcified splenic granulomas. No free fluid/air. Remaining liver, gallbladder, pancreas, spleen, adrenal glands, kidneys, ureters, and bladder appear unremarkable for noncontrast exam. Stable mild aortoiliac calcifications without AAA. Osseous structures intact with stable mild lower lumbar degenerative changes. Impression: 1. Again incidental old granulomatous disease. 2. Remaining CT abdomen/pelvis without contrast exam is negative. Comment: Preliminary interpretation made by [facility]. No critical discrepancy.
[2020-12-09] MEDS ORDERED: HYDROCODONE-ACETAMIN 10-325 MG PO PRN (09:54)
[2020-12-09] MEDS ORDERED: HYDROCODONE-ACETAMIN 10-325 MG PO SCH (10:00)
[2020-12-09] MEDS ORDERED: NON-FORMULARY ITEM (Pravastatin Sodium [Pravachol] 10 MG) PO SCH (10:00)
[2020-12-09] MEDS ORDERED: Zocor 10MG PO SCH ×2 (10:00→22:00)
[2020-12-09] MEDS ORDERED: SOMA 350 MG PO SCH (10:00)
[2020-12-09] MEDS ORDERED: Lomotil PO PRN (10:32)
[2020-12-09] MEDS: DECADRON 10MG INJ. IV SCH (11:12)
[2020-12-09] MEDS: CLARITIN-D 24HR TABLET PO SCH (11:12)
[2020-12-09] MEDS ORDERED: Ativan 1 MG PO PRN (11:25)
[2020-12-09] MEDS ORDERED: Ativan 2 MG/1 ML VIAL IV PRN (11:25)
[2020-12-09] MEDS ORDERED: Ativan 1 MG PO SCH (12:00)
[2020-12-09] MEDS ORDERED: Ativan 2 MG/1 ML VIAL IV SCH (12:00)
[2020-12-09] MEDS: Hydromorphone 1 mg/ml Injection IV PRN ×3 (12:33→21:44)
[2020-12-09] MEDS: SOMA 350 MG PO PRN ×2 (13:13→21:48)
[2020-12-09] MEDS: Zofran 4 MG/2 ML VIAL IV PRN ×2 (13:33→21:43)
[2020-12-09] MEDS ORDERED: Flomax 0.4 MG PO SCH (22:00)
[2020-12-10] MEDS: Sodium Chloride 0.9% 1000 ML 1,000 ML IV SCH (02:10)
[2020-12-10 05:38] LABS: Absolute Neutrophil Ct (ANC) 2.73 (1.4-6.9); BASOPHIL % 0.2 % (0.0-0.4); Basophil (Absolute #) 0.01 (0-0.4); Eosinophil % 0.2 % (0.00-5.0); Eosinophil (Absolute #) 0.01 (0-0.5); Hematocrit 47.3 % (42-50); Hemoglobin 15.4 gm/dl (12.5-18.0); Lymphocyte (Absolute #) 1.09 (1.0-4.6); Lymphocytes % 22.9 % (24.0-44.0); Mean Cell Volume 93.8 fl (78-100); Mean Corpuscular Hemoglobin 30.6 pg (26-32); Mean Corpuscular Hgb Concent. 32.6 g/dl (32-36); Mean Platelet Volume 9.4 fl (7.5-11.0); Monocyte (Absolute #) 0.91 (0.0-1.3); Monocytes % 19.2 % (0.0-12.0); Neutrophil % 57.5 % (36.0-66.0); Platelet Count 231 K/mm3 (150-450); Red Blood Count 5.04 M/mm3 (4.1-5.6); Red Cell Distribution Width 12.6 % (11.5-14.0); White Blood Count 4.8 K/mm3 (4.0-10.5)
[2020-12-10 06:06] LABS: ALBUMIN 4.5 g/dL (3.5-5.0); ALKALINE PHOSPHATASE 91 U/L (38-126); ANION GAP 15.9 MEQ/L (5-15); BLOOD UREA NITROGEN 12 mg/dL (9-20); CHLORIDE 98 mmol/L (98-107); Calcium 9.6 mg/dL (8.4-10.2); Carbon Dioxide 28 mmol/L (22-30); Creatinine 1 0.87 mg/dL (0.66-1.25); EST GLOMERULAR FILTRATION RATE > 60.0 ML/MIN; Glucose 108 mg/dL (74-106); Potassium 4.2 mmol/L (3.5-5.1); SGOT/AST 34 U/L (17-59); SGPT/ALT 27 U/L (0-50); SODIUM 137 mmol/L (137-145); Total Protein 7.7 g/dL (6.3-8.2)
[2020-12-10] MEDS: Hydromorphone 1 mg/ml Injection IV PRN (06:40)
[2020-12-10] MEDS ORDERED: PATIENT OWN MEDICATION IH SCH (07:00)
[2020-12-10 07:39] VITALS: BP 118/68; PULSE 78
[2020-12-10] MEDS: CLARITIN-D 24HR TABLET PO SCH (07:45)
[2020-12-10] MEDS: DECADRON 10MG INJ. IV SCH (09:09)
[2020-12-10] MEDS ORDERED: Zocor 10MG PO SCH (10:00)
--- NOTE | 2020-12-10 13:32 | SSS ---
ADMISSION DIAGNOSES: 1) COVID. 2) Myalgia. 3) Headaches. 4) Weakness. DISCHARGE DIAGNOSES: 1) COVID. 2) MYALGIA. 3) HEADACHES. 4) WEAKNESS. HISTORY OF PRESENT ILLNESS: The patient is a 59-year-old white male who is on Disability due to back and neck problems. He did have the vaccine although his did not and he became acutely ill for the last two days and had trouble walking. He was not thinking clearly, felt like he was in a fog, vision seemed to be blurred. He had some cough, mild shortness of breath but initially he started vomiting and has been vomiting since two days before admission. Nauseated. No diarrhea. He does not know where he got it from. His has not been vaccinated and she is asymptomatic. She was instructed in the emergency room to see if she had symptoms. MEDICATIONS: None. ALLERGIES: GABAPENTIN. MORPHINE. IODINE. PAST MEDICAL HISTORY: The patient went on Disability due to back problems some years ago, I believe. However, he has been pretty healthy since then. He works out, watches his diet. SOCIAL HISTORY: He does not smoke. He quit smoking some time ago, four or five years ago at least. Happily . His was an employee here for a long time. REVIEW OF SYSTEMS: HEENT: Headache, kind of confused. CHEST: Mild shortness of breath at rest. CVS: Denies any heart attacks or blood pressure problems. ABDOMEN: Nausea, vomiting. The patient just started having diarrhea when he was admitted. BACK: Some back pain occasionally. He is able to work out at the gym mostly light weights and walking. EXTREMITIES: The patient is ambulatory slowly. PHYSICAL EXAMINATION: The patient is a healthy, thin 59-year-old white male overall. He looks distressed, fatigued and is vomiting. VITAL SIGNS: Temperature 99F, pulse 100, respirations 14. HEENT: Pupils equal and reactive to light. Head tender to touch. CHEST: Clear. CVS: Heart sounds are regular. ABDOMEN: No tenderness or organomegaly. EXTREMITIES: No edema. No cyanosis. Good pulses. IMPRESSION: The patient has acute COVID despite having the vaccine and he is symptomatic with diarrhea, now vomiting, anxiety and myalgia. PLAN: Will try to speed up his recovery, take care of his vomiting and pain, start him on some Decadron, Ativan. HOSPITAL COURSE: The patient got a royer sleep. His oxygen level stayed normal and his vomiting stopped and he ate some breakfast. He stated he feels much improved. He is to go home on some prednisone 40 mg x5, 20 x5 mg. He lives with his . He is to wear a mask around her and stay in the house for seven days. If she starts having any symptoms she should go to the emergency room right away, advised that she is a candidate for antibodies. Follow up with family doctor as needed. PROGNOSIS: Good.
[2020-12-15 07:16] VITALS: O2SAT 99
== END 2020-12-10 09:43 | disposition home or self-care (01) ==
LOC: ED 03:41 → MED SURG 07:35
PROVIDERS: ADMIT Family Medicine; ATTEND Family Medicine
DX: U07.1 COVID-19 (principal); R11.2 Nausea with vomiting, unspecified; R19.7 Diarrhea, unspecified; M79.10 Myalgia, unspecified site; R42 Dizziness and giddiness; R51.9 Headache, unspecified; R53.1 Weakness; R10.12 Left upper quadrant pain; Z79.899 Other long term (current) drug therapy; I10 Essential (primary) hypertension; E78.00 Pure hypercholesterolemia, unspecified; R41.0 Disorientation, unspecified; Z20.822 Contact with and (suspected) exposure to COVID-19
CPT/HCPCS: 36000; 36415; 74176; 80053; 83690; 84484; 85025; 93268; 96360; 96374; 96375; 99285; G0378; U0003; J1100; J1170; J2060; J2405; A9270-GY

== ENCOUNTER 2023-06-19 16:48 | Emergency (ER) | payer MEDICARE ==
[2023-06-19 17:57] VITALS: TEMP 97.2
--- NOTE | 2023-06-19 18:37 | ERPHSYRPT ---
- History of Present Illness Time Seen by Provider: 06/19/23 18:37 Source: patient Exam Limitations: no limitations Patient Subjective Stated Complaint: Pt states "I was mushroom hunting last and I fell down a hill and my neck and shuolders popped and I woke up stiff on monday and I just hurt. My head is killing me as well." Triage Nursing Assessment: Pt presented alert and oriented X 3, skin pwd. Pt ambulates with a stiff gait, pt not moving his neck. PT able to speak in clear full sentenecs. Physician History: This is a 62-year-old white male patient who was mushroom hunting 4 days ago and fell onto a hill hitting his head. Patient was seen by a home health care provider and complained of headache and neck pain after the fall as well as nausea. Because of his persistent symptoms and his mechanism of injury, patient was told to come to the emergency department for evaluation. Patient has hydrocodone medication at home. He has a history of hyperlipidemia, degenerative disc disease in his neck. He has had cervical spine surgery with hardware/plates internally. He has a history of prostate issues and asthma. Patient presented without a cervical collar in place and we placed 1 on him. Occurred: days ago (4) Reason for Fall: tripped Injuries/Pain Location: head, neck Loss of Consciousness: no loss of consciousness Severity of Pain-Max: moderate Severity of Pain-Current: moderate Modifying Factors: Improves With: movement Associated Symptoms (Fall): neck pain Allergies/Adverse Reactions: gabapentin Allergy (Severe, Verified 12/09/20 04:01) Tightness of Throat rash and itch morphine Allergy (Severe, Verified 12/09/20 04:01) Rapid Heart Beat states "like anxiety" iodine Allergy (Verified 12/09/20 04:01) Home Medications: Hydrocodone/APAP 10/325 mg [Eldred 10/325 MG TableT] 1 tab PO QID 04/06/13 [History] Carisoprodol 350 mg [Soma 350 mg] 350 mg PO QID 05/02/16 [History] Tamsulosin HCl 0.4 mg [Flomax 0.4 MG] 0.4 mg PO QHS 09/20/16 [History] Pravastatin Sodium [Pravachol] 10 mg PO DAILY 08/14/18 [History] Hx Tetanus, Diphtheria Vaccination/Date Given: No Hx Influenza Vaccination/Date Given: No Hx Pneumococcal Vaccination/Date Given: No Immunizations Up to Date: No Travel Risk - International Travel Have you traveled outside of the country in past 3 weeks: No - Emerging Infectious Disease Are you exhibiting symptoms associated with any current EIDs: No - Review of Systems Constitutional: No Symptoms Eyes: No Symptoms Ears, Nose, & Throat: No Symptoms Respiratory: No Symptoms Cardiac: No Symptoms Abdominal/Gastrointestinal: No Symptoms Genitourinary Symptoms: Incontinence Musculoskeletal: Neck Pain, Fall, Injury Skin: No Symptoms Neurological: No Symptoms Psychological: No Symptoms Endocrine: No Symptoms Hematologic/Lymphatic: No Symptoms Immunological/Allergic: No Symptoms All Other Systems: Reviewed and Negative - Past Medical History Pertinent Past Medical History: Yes Neurological History: No Pertinent History ENT History: No Pertinent History Cardiac History: High Cholesterol, Hypertension Respiratory History: Asthma Endocrine Medical History: No Pertinent History Musculoskeletal History: Degenerative Disk Disease, Fractures GI Medical History: Ulcer History: Other Psycho-Social History: No Pertinent History Male Reproductive Disorders: Prostate Problems Other Medical History: HX FX LEFT HEEL (ORIF WITH METAL PLATE), FX SHOULDER AND ROTATOR CUFF REPAIR, DEGENERATIVE DISK CERVICAL SPINE WITH 3 SURGERIES INCLUDING FUSION. ALSO BILATERAL CARPAL TUNNEL RELEASES AND SURGERY TO REATTACH WRIST EXTENSORS ON LEFT. ALSO HX FX RIBS. APPENDECTOMY. - Past Surgical History Past Surgical History: Yes Neuro Surgical History: No Pertinent History Cardiac: No Pertinent History Respiratory: No Pertinent History Gastrointestinal: Appendectomy Genitourinary: No Pertinent History Musculoskeletal: Orthopedic Surgery Male Surgical History: No Pertinent History Other Surgical History: 20+ orthopedic surgeries following fall while on the job. - Social History Smoking Status: Former smoker How long have you smoked: 5 Exposure to second hand smoke: No Drug Use: none Patient Lives Alone: No - Nursing Vital Signs Nursing Vital Signs: Initial Vital Signs Temperature 97.2 F 06/19/23 17:52 Pulse Rate 100 H 06/19/23 17:52 Respiratory Rate 20 06/19/23 17:52 Blood Pressure 176/96 06/19/23 17:52 O2 Sat by Pulse Oximetry 97 06/19/23 17:52 Pain Scale Pain Intensity 6 - Renee Coma Score Best Eye Response (Renee): (4) open spontaneously Best Verbal Response (Wayland): (5) oriented Best Motor Response (Wayland): (6) obeys commands Wayland Total: 15 - Physical Exam General Appearance: no apparent distress, alert Eye Exam: PERRL/EOMI, eyes nml inspection Neck Exam: supple, trachea midline, full range of motion, normal alignment, normal inspection, other (Patient presented without a cervical collar in place. 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 tested, normal mood/affect, sensation nml Skin Exam: normal color, warm, dry SpO2 Interpretation: normal SpO2: 98 O2 Delivery: Room Air - Course Nursing assessment & vital signs reviewed: Yes Ordered Tests: Active Orders 24 hr Category Date Time Status CERVICAL SPINE WO CONTRAST [CT] Stat Exams 06/19/23 18:39 Taken HEAD WITHOUT CONTRAST [CT] Stat Exams 06/19/23 18:39 Taken - Progress Progress: pain not gone completely, re-examined Progress Note: 06/19/23 20:00 My medical decision making and assignment of this patient's medical issue as low complexity, was based on review the patient's past medical history, review the patient's medication list, review of patient drug allergy list, history present illness and physical findings on examination. The workup in this patient includes CT scan of the head and cervical spine. Both the studies are without contrast. Differential diagnoses include intracranial abnormality secondary to trauma, cervical spine fracture or subluxation, cervical paraspinous muscle spasm Counseled pt/family regarding: diagnosis, need for follow-up, rad results Medical Desision Making - Diagnostic Testing Diagnostic test were ordered, analyzed, and reviewed by me: Yes Radiological Interpretation: Reviewed by me, Teleradiologist Report - Risk of complications Low Risk: Low risk of morbidity from additional dx testing or treatment - Departure Departure Disposition: Home Clinical Impression: Fall, Neck pain, Head injury, Postconcussion syndrome Condition: Stable Critical Care Time: No Referrals: KYLAH SAENZ MD [Primary Care Provider] - Follow up/PCP as directed Additional Instructions: Ice pack to tender areas 2-3 times a day for the next 48 hours. Continue your pain medication regimen as prescribed. Call your prescribing provider tomorrow, 06/20/2023 to make arrangements for further evaluation management the next 5 to 7 days.
[2023-06-19 19:25] VITALS: RESP 16; O2SAT 98
[2023-06-19 20:13] VITALS: BP 164/89; PULSE 89
--- NOTE | 2023-06-20 08:44 | XRAY ---
Indication: Headache and nausea following fall 4 days ago. Multiple contiguous axial images obtained through the head without contrast. Comparison: December 05, 2016 Normal appearing brain parenchyma, ventricles, and bony calvarium. Visualized paranasal sinuses and mastoid air cells are clear. Impression: Continued normal CT head without contrast exam.
--- NOTE | 2023-06-20 08:52 | XRAY ---
Indication: Pain following fall 4 days ago. Multiple contiguous axial images obtained through the cervical spine. Sagittal and coronal reformatted images obtained. Comparison: November 23, 2016 Axial images again negative for acute fracture, suspicious bony lesions, or spinal canal stenosis. There remains C5-C7 fusion with intact C5-C6 fusion hardware. Progressive worsening mild C4-C5 degenerative facet hypertrophy. Sagittal and coronal reformatted images again demonstrates normal alignment with disc spaces maintained. No acute compression fracture, subluxation, or jumped facet. Normal appearing craniocervical junction. Visualized noncontrasted soft tissues again demonstrates minimal bilateral carotid calcifications. Lung apices clear. Impression: 1. Continue negative acute fracture/subluxation. 2. Again chronic findings including C5-C7 fusion, C4-C5 degenerative facet hypertrophy, and bilateral carotid calcifications.
== END 2023-06-19 20:17 | disposition home or self-care (01) ==
LOC: ED 16:48
DX: S09.90XA Unspecified injury of head, initial encounter (principal); W18.39XA Other fall on same level, initial encounter; Y92.821 Forest as the place of occurrence of the external cause; M54.2 Cervicalgia; G44.309 Post-traumatic headache, unspecified, not intractable; F07.81 Postconcussional syndrome; R11.0 Nausea; I10 Essential (primary) hypertension; E78.5 Hyperlipidemia, unspecified; Z79.891 Long term (current) use of opiate analgesic; Z79.899 Other long term (current) drug therapy
CPT/HCPCS: 70450; 72125; 99283

== ENCOUNTER 2024-05-15 16:40 | Emergency (ER) | payer MEDICARE ==
[2024-05-15] MEDS ORDERED: Adacel Vial IM ONE (16:55)
[2024-05-15] MEDS: Adacel Vial IM ONE (16:57)
--- NOTE | 2024-05-15 17:06 | XRAY ---
Indication: Pain following injury. Laceration. Comparison: None 3 view left hand demonstrates mild posterior hand soft tissue swelling/laceration with 2 punctate soft tissue foreign bodies. Elsewhere osteopenia and minimal degenerative changes all IP joints. No other bony, articular, or soft tissue abnormalities.
[2024-05-15 17:08] VITALS: RESP 18; TEMP 98; O2SAT 98
[2024-05-15 17:24] VITALS: PULSE 70
[2024-05-15] MEDS ORDERED: XYLOCAINE 1% HCL 20 ML MDV ONE (17:59)
[2024-05-15] MEDS: XYLOCAINE 1% HCL 20 ML MDV IJ ONE (18:00)
[2024-05-15 18:09] VITALS: BP 176/107
[2024-05-15] MEDS ORDERED: KEFLEX 500 MG ONE (18:11)
[2024-05-15] MEDS ORDERED: BACIGUENT PACKET ONE (18:11)
[2024-05-15] MEDS: BACIGUENT PACKET TP ONE (18:12)
[2024-05-15] MEDS: KEFLEX 500 MG PO ONE (18:12)
--- NOTE | 2024-05-15 18:22 | ERPHSYRPT ---
- History of Present Illness Time Seen by Provider: 05/15/24 17:15 Source: patient Exam Limitations: no limitations Patient Subjective Stated Complaint: C/O left hand injury. States he folded it up in a metal chair while spring cleaning at home. Triage Nursing Assessment: Patient ambulated back to ER with a wash cloth over his left hand. Small amount of blood noted to cloth. Cloth removed and 2 openings noted to top of left hand; no active bleeding. Physician History: 63-year-old right-handed dominant male with history of chronic back pain presented in the ER with left hand laceration. Patient reports he was holding a folding chair and tripped leading to his hand got in the folding with a laceration. Reports moderate intensity sharp pain in the hand and swelling of second and third digit proximally and dorsum of hand. There was bleeding initially but stopped with applying pressure. Has some difficulty making fist but intact sensations. Allergies/Adverse Reactions: gabapentin Allergy (Severe, Verified 05/15/24 16:45) Tightness of Throat rash and itch morphine Allergy (Severe, Verified 05/15/24 16:45) Rapid Heart Beat states "like anxiety" iodine Allergy (Verified 05/15/24 16:45) Home Medications: Carisoprodol 350 mg [Soma 350 mg] 350 mg PO QID 05/02/16 [History] Tamsulosin HCl 0.4 mg [Flomax 0.4 MG] 0.4 mg PO QHS 09/20/16 [History] Pravastatin Sodium [Pravachol] 10 mg PO DAILY 08/14/18 [History] Hx Tetanus, Diphtheria Vaccination/Date Given: (NOT tetanus) Hx Influenza Vaccination/Date Given: No Hx Pneumococcal Vaccination/Date Given: No Travel Risk - International Travel Have you traveled outside of the country in past 3 weeks: No - Emerging Infectious Disease Are you exhibiting symptoms associated with any current EIDs: No - Review of Systems Constitutional: No Symptoms Ears, Nose, & Throat: No Symptoms Respiratory: No Symptoms Cardiac: No Symptoms Abdominal/Gastrointestinal: No Symptoms Musculoskeletal: Arthralgias, Back Pain, Neck Pain, Injury Skin: Skin Lesions Neurological: No Symptoms Hematologic/Lymphatic: No Symptoms - Past Medical History Pertinent Past Medical History: Yes Neurological History: No Pertinent History ENT History: No Pertinent History Cardiac History: High Cholesterol, Hypertension Respiratory History: Asthma Endocrine Medical History: No Pertinent History Musculoskeletal History: Degenerative Disk Disease, Fractures GI Medical History: Ulcer History: Other Psycho-Social History: No Pertinent History Male Reproductive Disorders: Prostate Problems Other Medical History: Rib fractures - Past Surgical History Past Surgical History: Yes Neuro Surgical History: No Pertinent History Cardiac: No Pertinent History Respiratory: No Pertinent History Gastrointestinal: Appendectomy Genitourinary: No Pertinent History Musculoskeletal: Orthopedic Surgery Male Surgical History: No Pertinent History Other Surgical History: 20+ orthopedic surgeries following fall while on the job, HX FX LEFT HEEL (ORIF WITH METAL PLATE), FX SHOULDER AND ROTATOR CUFF REPAIR, Back surgeries including a spinal fusion, BILATERAL CARPAL TUNNEL RELEASES AND SURGERY TO REATTACH WRIST EXTENSORS ON LEFT. - Social History Smoking Status: Former smoker Exposure to second hand smoke: No Drug Use: none - Social Determinants of Health Will the patient participate in the screening: Yes Do you worry about a steady place to live?: No Do you have any problems with any of the following?: No known problems In the past 12 months,have you had to go without utilities?: No Transportation Issues: No Has anyone in your support network made you feel unsafe?: No Have you or anyone in your house had to go w/o enough food: No - Nursing Vital Signs Nursing Vital Signs: Initial Vital Signs Pulse Rate 70 05/15/24 16:44 Respiratory Rate 18 05/15/24 16:44 Blood Pressure 154/112 05/15/24 16:44 O2 Sat by Pulse Oximetry 98 05/15/24 16:44 Pain Scale Pain Intensity 0 - Physical Exam General Appearance: no apparent distress Neck Exam: normal inspection, full range of motion Cardiovascular/Respiratory Exam: normal breath sounds, regular rate/rhythm Wrist Exam: normal inspection, non-tender, no evidence of injury, normal ROM Hand Exam: bone tenderness, laceration (3 cm laceration dorsum of hand between second and third metacarpals. Swelling distally. Mild restricted range of motion at second and third digit. Intact sensation, cap refill less than 3 seconds), limited ROM, swelling Neuro/Tendon Exam: normal sensation, No normal tendon functions (Full tendon function cannot be assessed) Mental Status Exam: alert, oriented x 3, cooperative Skin Exam: normal color SpO2 Interpretation: normal SpO2: 98 O2 Delivery: Room Air Procedures - Laceration/Wound Repair Left Dorsal Hand Time of Procedure: 18:00 Wound Location: Left, hand Wound Length (cm): 3 Wound's Depth, Shape: irregular, contused tissue Wound Explored: contaminated Irrigated: Yes Hibiclens Prep: Yes Anesthesia: 1% Lidocaine Volume Anesthetic (ccs): 3 Wound Debrided: minimal Wound Repaired With: sutures Suture Size/Type: 4-0, ethilon Number of Sutures: 2 Layer Closure?: No Sterile Dressing Applied?: Yes Splint Applied?: Yes Type of Splint Applied: Premade aluminum Ordered Tests: Active Orders 24 hr Category Date Time Status Consult Ortho ROUTINE Cons 05/15/24 18:20 Completed HAND (2 VIEW) Stat Exams 05/15/24 17:15 Taken HAND (MINIMUM 3 VIEWS) Stat Exams 05/15/24 16:44 Completed Medication Summary Discontinued Medications Generic Name Dose Route Start Last Admin Trade Name Freq PRN Reason Stop Dose Admin Bacitracin Zinc 0.9 each 05/15/24 18:10 05/15/24 18:12 Bacitracin Packet 1 Each Pckt TP 05/15/24 18:11 0.9 each STAT ONE Administration Bacitracin Zinc Confirm 05/15/24 18:11 Bacitracin Packet 1 Each Pckt Administered 05/15/24 18:12 Dose 1 each .ROUTE .STK-MED ONE Cephalexin HCl 500 mg 05/15/24 18:08 05/15/24 18:12 Cephalexin Mh500 Mg Capsule PO 05/15/24 18:09 500 mg STAT ONE Administration Cephalexin HCl Confirm 05/15/24 18:11 Cephalexin Mh500 Mg Capsule Administered 05/15/24 18:12 Dose 500 mg .ROUTE .STK-MED ONE Diphtheria/Tetanus/Acell Pertussis 0.5 ml 05/15/24 16:44 05/15/24 16:57 Tdap --Diph,Pertuss(Acell),Tet Vac/Pf 0.5 Ml Vial IM 05/15/24 16:45 0.5 ml .ONCE ONE Administration Diphtheria/Tetanus/Acell Pertussis Confirm 05/15/24 16:55 Tdap --Diph,Pertuss(Acell),Tet Vac/Pf 0.5 Ml Vial Administered 05/15/24 16:56 Dose 0.5 ml IM .STK-MED ONE Lidocaine HCl 5 ml 05/15/24 17:58 05/15/24 18:00 Lidocaine Hcl 1% 20 Ml Mdv 20 Ml Ml IJ 05/15/24 17:59 5 ml STAT ONE Administration Lidocaine HCl Confirm 05/15/24 17:59 Lidocaine Hcl 1% 20 Ml Mdv 20 Ml Ml Administered 05/15/24 18:00 Dose 5 ml .ROUTE .STK-MED ONE - Progress Progress: improved Progress Note: 05/15/24 18:19 63-year-old is evaluated in the ER for left hand laceration with a folding metal chair. X-rays showed no obvious fracture dislocation reviewed by me but does have foreign bodies, followed by official report. I have flushed thoroughly and tamar-rays but that foreign body still in there. Official report is pending. I have discussed with Dr. Carr, recommended applying couple of stitches to close the laceration, antibiotics, splinting and follow-up with Dr. Beth tomorrow morning for reevaluation. I have repaired the laceration, discussed the results of x-rays and plan of care with patient and family which they understand and agree. Discussed signs symptoms of worsening needing return to ER which she seems understanding. Stable for discharge. Counseled pt/family regarding: diagnosis, need for follow-up, rad results Medical Desision Making - Independent Historian Additional History obtained from: Spouse - Discussion of managment Care discussed with:: specialist ([facility]o orthopedic surgeon) Reviewed:: Test results Agreed on:: Treatment plan, need for follow-up Will see patient: In office - Diagnostic Testing Diagnostic test were ordered, analyzed, and reviewed by me: Yes Radiological Interpretation: Interpreted by me, Reviewed by me - Risk of complications The pt has a mod risk of morbidity or mortality based on: Need for prescription drug management, Need for minor surgical intervention in patient with know risk factors - Departure Departure Disposition: Home Clinical Impression: Hand laceration, Foreign body hand Condition: Stable Critical Care Time: No Referrals: KYLAH SAENZ MD [Primary Care Provider] - Follow up with PCP 1 day DEANNA BETH MD [ACTIVE STAFF] - Follow up/PCP as directed (Tomorrow for reevaluation appointment) Instructions: Laceration Repair With Stitches (DC) Additional Instructions: Intermittent ice application. Follow-up with orthopedics for reevaluation tomorrow. Return to ER for increasing pain swelling, difficulty movements of the fingers, numbness tingling weakness etc. Prescriptions: Cephalexin Mh 500 mg [Keflex 500 mg] 500 mg PO TID #21 cap
--- NOTE | 2024-05-16 08:36 | XRAY ---
Indication: Foreign body. Comparison: Taken earlier in the day. 3 view left hand demonstrates grossly stable posterior hand soft tissue swelling/laceration with underlying punctate soft tissue foreign bodies, osteopenia, and minimal degenerative changes all IP joints. No new bony, articular, or soft tissue abnormalities.
== END 2024-05-15 18:33 | disposition home or self-care (01) ==
LOC: ED 16:40
DX: S61.422A Laceration with foreign body of left hand, initial encounter (principal); W23.0XXA Caught, crushed, jammed, or pinched between moving objects, initial encounter; Y93.E9 Activity, other interior property and clothing maintenance; E78.5 Hyperlipidemia, unspecified; I10 Essential (primary) hypertension; Z79.899 Other long term (current) drug therapy; Z23 Encounter for immunization
CPT/HCPCS: 12002; 73120; 73130; 90471; 90715; 99283; 99284; A4570; A9270-GY

== ENCOUNTER 2024-05-18 21:23 | Observation (INO) | payer MEDICARE ==
--- NOTE | 2024-05-18 22:14 | ERPHSYRPT ---
- History of Present Illness Time Seen by Provider: 05/18/24 22:13 Source: patient, family Exam Limitations: no limitations Physician History: Pt hit his left hand and saw Hand on Monday who told him he had metal FB but and started oral AB and told him to go to ER if got worse and it has. Discussed with pt and available family risks and benefits of testing/Tx including CBC, CMP, blood cultures CT hand to rule out osteo or fasciitis pain med (pt declines), Antibiotic vanc and zosyn, and they wish to proceed so these are ordered. Results discussed with pt and available family. this is an upper ext concern but inadvertently on lower ext worksheet. EXAM: nromal mental status. Normal neuro exam. Normal HEENT. chest clear Ht reg without M. Abd soft nontender without peritoneal signs or masses. no reported concerns. ALl upper ext with full ROM, appear normal, no abrasion or tenderness except for left hand/wrist. which is inflammed and swollen with draining wound. and tender to touch. Method of Injury: direct blow Occurred: yesterday Severity of Pain-Max: moderate Severity of Pain-Current: moderate Modifying Factors: Improves With: nothing, movement Associated Symptoms: other (fever) Allergies/Adverse Reactions: gabapentin Allergy (Severe, Verified 05/15/24 16:45) Tightness of Throat rash and itch morphine Allergy (Severe, Verified 05/15/24 16:45) Rapid Heart Beat states "like anxiety" iodine Allergy (Verified 05/15/24 16:45) Home Medications: Carisoprodol 350 mg [Soma 350 mg] 350 mg PO QID 05/02/16 [History] Tamsulosin HCl 0.4 mg [Flomax 0.4 MG] 0.4 mg PO QHS 09/20/16 [History] Pravastatin Sodium [Pravachol] 10 mg PO DAILY 08/14/18 [History] Hx Tetanus, Diphtheria Vaccination/Date Given: (NOT tetanus) Hx Influenza Vaccination/Date Given: No Hx Pneumococcal Vaccination/Date Given: No Travel Risk - Emerging Infectious Disease Are you exhibiting symptoms associated with any current EIDs: No - Review of Systems Constitutional: Fever, Chills Eyes: No Symptoms Ears, Nose, & Throat: No Symptoms Respiratory: No Cough, No Dyspnea Cardiac: No Chest Pain, No Edema, No Syncope Abdominal/Gastrointestinal: No Abdominal Pain, No Nausea, No Vomiting, No Diarrhea Genitourinary Symptoms: No Dysuria Musculoskeletal: Injury, Joint Redness, Joint Pain, Joint Swelling, No Back Pain, No Neck Pain Skin: Skin Lesions, No Rash Neurological: No Dizziness, No Focal Weakness, No Sensory Changes Psychological: No Symptoms Endocrine: No Symptoms Hematologic/Lymphatic: No Symptoms Immunological/Allergic: No Symptoms All Other Systems: Reviewed and Negative - Past Medical History Pertinent Past Medical History: Yes Neurological History: No Pertinent History ENT History: No Pertinent History Cardiac History: High Cholesterol, Hypertension Respiratory History: Asthma Endocrine Medical History: No Pertinent History Musculoskeletal History: Degenerative Disk Disease, Fractures GI Medical History: Ulcer History: Other Psycho-Social History: No Pertinent History Male Reproductive Disorders: Prostate Problems Other Medical History: Rib fractures - Past Surgical History Past Surgical History: Yes Neuro Surgical History: No Pertinent History Cardiac: No Pertinent History Respiratory: No Pertinent History Gastrointestinal: Appendectomy Genitourinary: No Pertinent History Musculoskeletal: Orthopedic Surgery Male Surgical History: No Pertinent History Other Surgical History: 20+ orthopedic surgeries following fall while on the job, HX FX LEFT HEEL (ORIF WITH METAL PLATE), FX SHOULDER AND ROTATOR CUFF REPAIR, Back surgeries including a spinal fusion, BILATERAL CARPAL TUNNEL RELEASES AND SURGERY TO REATTACH WRIST EXTENSORS ON LEFT. - Social History Smoking Status: Former smoker Exposure to second hand smoke: No Drug Use: none - Social Determinants of Health Will the patient participate in the screening: Yes Do you worry about a steady place to live?: No In the past 12 months,have you had to go without utilities?: No Transportation Issues: No Has anyone in your support network made you feel unsafe?: No Have you or anyone in your house had to go w/o enough food: No - Nursing Vital Signs Nursing Vital Signs: Initial Vital Signs Temperature 99.0 F 05/18/24 21:24 Pulse Rate 97 H 05/18/24 21:24 Respiratory Rate 18 05/18/24 21:24 Blood Pressure 142/86 05/18/24 21:24 O2 Sat by Pulse Oximetry 96 05/18/24 21:24 Pain Scale Pain Intensity 8 - Physical Exam General Appearance: no apparent distress, alert Eyes, Ears, Nose, Throat Exam: moist mucous membranes Neck Exam: non-tender, supple Cardiovascular/Respiratory Exam: chest non-tender, normal breath sounds, regular rate/rhythm, no respiratory distress Gastrointestinal/Abdominal Exam: non-tender, guarding Back Exam: normal inspection, No vertebral tenderness DTR - Lower Extremities Exam: knee (R): 2+, knee (L): 2+, ankle (R): 2+, ankle (L): 2+ Neuro/Tendon Exam: normal sensation, normal motor functions, normal tendon functions Mental Status Exam: alert, oriented x 3, cooperative Skin Exam: normal color, warm, dry SpO2 Interpretation: normal SpO2: 96 O2 Delivery: Room Air - Course Nursing assessment & vital signs reviewed: Yes - CT Exams Upper Extremity CT Interpretation: Tele-radiologist Report, Other (cellulitis and possible tenosynovitis) Ordered Tests: Active Orders 24 hr Category Date Time Status UPPER EXTREMITY W/O CONTRAST [CT] Stat Exams 05/18/24 22:17 Completed CBC W DIFF Stat Lab 05/18/24 21:35 Completed CMP Stat Lab 05/18/24 21:35 Completed CULTURE,WOUND Stat Lab 05/18/24 21:35 Received SED RATE [Erythrocyte Sedimentation Rate] Stat Lab 05/18/24 23:20 Completed Medication Summary Generic Name Dose Route Start Last Admin Trade Name Freq PRN Reason Stop Dose Admin Vancomycin HCl 2 gm in 400 mls @ 133 mls/hr 05/18/24 23:30 05/18/24 23:48 Vancomycin 2 Gram/400 Ml Bag IV 06/17/24 23:29 133 mls/hr Q24H ANTHONY 133 mls/hr Administration Discontinued Medications Generic Name Dose Route Start Last Admin Trade Name Freq PRN Reason Stop Dose Admin Vancomycin HCl 1.25 gm in 250 mls @ 150 mls/hr 05/18/24 22:16 05/18/24 22:27 Vancomycin 1.25 Gm/250 Ml Bag IV 05/18/24 23:55 Not Given STAT ONE Piperacillin Sod/Tazobactam 100 mls @ 200 mls/hr 05/18/24 22:16 05/19/24 00:13 Sod 3.375 gm/ Sodium Chloride IV 05/18/24 22:45 Infused STAT ONE Infusion Sodium Chloride Confirm 05/18/24 22:18 Sodium Chloride 100ml Mini-Bag Plus Administered 05/18/24 22:19 Dose 100 mls @ ud IV .STK-MED ONE Ketorolac Tromethamine 30 mg 05/18/24 23:47 05/18/24 23:49 Ketorolac Tromethamine 30 Mg/Ml Inj IV 05/18/24 23:48 30 mg STAT ONE Administration Ketorolac Tromethamine Confirm 05/18/24 23:47 Ketorolac Tromethamine 30 Mg/Ml Inj Administered 05/18/24 23:48 Dose 30 mg .ROUTE .STK-MED ONE Piperacillin Sod/Tazobactam Sod Confirm 05/18/24 22:18 Piperacillin/Tazobactam Sodium 3.375 Gm Vial Administered 05/18/24 22:19 Dose 3.375 gm IV .STK-MED ONE Lab/Rad Data: Laboratory Result Diagrams 05/18/24 21:35 05/18/24 21:35 Laboratory Results 05/18/24 05/18/24 05/18/24 Range/Units 23:20 21:35 21:35 WBC 7.7 (4.23-9.07) x10^3/uL RBC 4.64 (4.63-6.08) x10^6/uL Hgb 13.9 (13.7-17.5) g/dL Hct 42.6 (40.1-51.0) % MCV 91.8 (79.0-92.2) fL MCH 30.0 (25.7-32.2) pg MCHC 32.6 (32.3-36.5) g/dL RDW 13.1 (11.6-14.4) % Plt Count 260 (163-337) x10^3/uL MPV 9.7 (9.4-12.4) fL Gran % 62.4 (34.0-67.9) % Immature Gran % (Auto) 0.1 (0.001-0.429) % Nucleat RBC Rel Count 0.0 (0.00-0.2) % Eos # (Auto) 0.40 (0.04-0.54) x10^3/uL Immature Gran # (Auto) 0.01 (0.001-0.031) x10^3u/L Absolute Lymphs (auto) 1.41 (1.32-3.57) x10^3/uL Absolute Monos (auto) 1.07 H (0.30-0.82) x10^3/uL Absolute Nucleated RBC 0.00 (0.00-0.012) x10^3u/L Lymphocytes % 18.2 L (21.8-53.1) % Monocytes % 13.8 H (5.3-12.2) % Eosinophils % 5.2 (0.8-7.0) % Basophils % 0.3 (0.2-1.2) % Absolute Granulocytes 4.82 (1.78-5.38) x10^3/uL Basophils # 0.02 (0.01-0.08) x10^3/uL ESR 44 H (0-15) mm/hr Sodium 136 (135-145) mmol/L Potassium 3.9 (3.5-5.1) mmol/L Chloride 102 (98-107) mmol/L Carbon Dioxide 24 (22-30) mmol/L Anion Gap 14.6 (5-15) MEQ/L BUN 8 L (9-20) mg/dL Creatinine 0.79 (0.66-1.25) mg/dL Estimated GFR 99.2 ML/MIN Glucose 115 H (74-106) mg/dL Calcium 8.6 (8.4-10.2) mg/dL Total Bilirubin 0.50 (0.2-1.3) mg/dL AST 31 (17-59) U/L ALT 18 (0-50) U/L Alkaline Phosphatase 65 (38-126) U/L Serum Total Protein 6.7 (6.3-8.2) g/dL Albumin 4.0 (3.5-5.0) g/dL - Progress Progress: improved, re-examined Progress Note: 05/19/24 00:[address] Min hospitalist and he agrees best to go in on AB with Surgeon consult in house - So I will consult Dr. Kim the hand surgeon and described the findings and the CT report. He is comfortable with doing the Ab tonight and will see the pt in hospital in the am. Discussed with DrAj: Other (Cedric Min and Dr Kim*( Hand surgeon) ) Will see patient in: hospital (observation) Counseled pt/family regarding: lab results, diagnosis, need for follow-up, rad results Medical Desision Making - Independent Historian Additional History obtained from: Family - Discussion of managment Care discussed with:: specialist Reviewed:: Test results, Need for additional workup Agreed on:: Treatment plan, need for follow-up, place in obs Will see patient: in hospital - Diagnostic Testing Diagnostic test were ordered, analyzed, and reviewed by me: Yes Radiological Interpretation: Teleradiologist Report - Risk of complications The pt has a mod risk of morbidity or mortality based on: Need for prescription drug management The pt has a high risk of morbidity or mortality based on: Decision regarding hospitilization or escalation of hosp level of care - Departure Departure Disposition: Observation Clinical Impression: Infection of left hand Condition: Good Critical Care Time: No Referrals: KYLAH SAENZ MD [Primary Care Provider] - Follow up/PCP as directed
[2024-05-18] MEDS ORDERED: Sodium Chloride 100ML MINI-BAG PLUS 100 ML IV ONE (22:18)
[2024-05-18] MEDS ORDERED: PIPERACILLIN/TAZOBACTAM IV ONE (22:18)
[2024-05-18] MEDS: PIPERACILLIN/TAZOBACTAM 3.375 GM in Sodium Chloride 100ML MINI-BAG PLUS 100 ML IV ONE (22:19)
[2024-05-18] MEDS: VANCOMYCIN 1.25 GM/250 ML BAG 1.25 GM/250 ML PIGGYBACK IV ONE (22:27)
[2024-05-18 23:26] LABS: Absolute Neutrophil Ct (ANC) 4.82 x10^3/uL (1.78-5.38); BASOPHIL % 0.3 % (0.2-1.2); Basophil (Absolute #) 0.02 x10^3/uL (0.01-0.08); Eosinophil % 5.2 % (0.8-7.0); Hematocrit 42.6 % (40.1-51.0); Hemoglobin 13.9 g/dL (13.7-17.5); IMMATURE GRAN # 0.01 x10^3u/L (0.001-0.031); IMMATURE GRAN % 0.1 % (0.001-0.429); Lymphocyte (Absolute #) 1.41 x10^3/uL (1.32-3.57); Lymphocytes % 18.2 % (21.8-53.1); Mean Cell Volume 91.8 fL (79.0-92.2); Mean Corpuscular Hgb Concent. 32.6 g/dL (32.3-36.5); Mean Platelet Volume 9.7 fL (9.4-12.4); Monocyte (Absolute #) 1.07 x10^3/uL (0.30-0.82); Monocytes % 13.8 % (5.3-12.2); Neutrophil % 62.4 % (34.0-67.9); Platelet Count 260 x10^3/uL (163-337); Red Blood Count 4.64 x10^6/uL (4.63-6.08); Red Cell Distribution Width 13.1 % (11.6-14.4); White Blood Count 7.7 x10^3/uL (4.23-9.07)
[2024-05-18 23:41] LABS: ANION GAP 14.6 MEQ/L (5-15); BILIRUBIN,TOTAL 0.5 mg/dL (0.2-1.3); Calcium 8.6 mg/dL (8.4-10.2); Creatinine 1 0.79 mg/dL (0.66-1.25); EST GLOMERULAR FILTRATION RATE 99.2 ML/MIN; Potassium 3.9 mmol/L (3.5-5.1); Total Protein 6.7 g/dL (6.3-8.2)
[2024-05-18] MEDS ORDERED: TORAdol 30 mg Injection ONE (23:47)
[2024-05-18] MEDS ORDERED: VANCOMYCIN 2 GRAM/400 ML BAG 2 GM/400 ML PIGGYBACK IV ONE (23:47)
[2024-05-18] MEDS: VANCOMYCIN 2 GRAM/400 ML BAG 2 GM/400 ML PIGGYBACK IV SCH (23:48)
[2024-05-18] MEDS: TORAdol 30 mg Injection IV ONE (23:49)
--- NOTE | 2024-05-19 | XRAY ---
CLINICAL HISTORY: trauma left hand with infection COMPARISON: No previous studies are available for comparison. TECHNIQUE: CT scan of the left hand was performed without the administration of intravenous contrast. Axial images were obtained, with coronal and sagittal reformatted images reviewed. One of the following dose reduction techniques was utilized for this exam. Automated exposure control, adjustment of the mA and/or kV according to patient size, and use of iterative reconstruction. FINDINGS: Bones: The bony structures are intact with no evidence of acute fracture or dislocation. Joints: Mild intercarpal degenerative changes. Soft Tissues: Diffuse soft tissue swelling involving left wrist and hand, predominantly along the dorsal aspect with edematous fat stranding and fluid collections. A tiny air focus with few calcific densities are seen along the dorsal aspect of hand. Fluid attenuation is seen around the flexor and extensor tendons, possible tenosynovitis. Additional Findings: No other significant findings are noted. IMPRESSION: 1. Diffuse soft tissue swelling involving left wrist and hand, predominantly along the dorsal aspect with edematous fat stranding and fluid collections. 2. A tiny air focus with few calcific densities are seen along the dorsal aspect of hand. 3. The above findings represent acute infectious process- cellulitis likely, however, underlying osteomyelitis cannot be excluded on CT study. Recommended contrast enhanced MRI for better evaluation 4. Fluid attenuation around the flexor and extensor tendons, possible tenosynovitis. 5. No acute osseous injury detected at present. [facility] ER was called at [phone] at 10:54PM LABEL [facility]ITCHER on 05/18/2024 and Vicki(nurse)was informed about the significant medical findings. Electronically Signed by: Trace Ford MD. (05/18/2024 23:57:21 EDT)
--- NOTE | 2024-05-19 02:31 | PCM.HP ---
History of Present Illness - Chief Complaint Chief Complaint: Left Hand Infection History of Present Illness: is a 63 year old male w/ BPH and HLD who presented to the ED with crush injury to his left had 3 days. Came to the ED and as seen by Dr. Gutierrez. Sent home on antibxs and asked to come back if his hand got worse. Over the past 3 days, left hand has become more swollen, red, painful He came to the ED and CT showed possible tenosynovitis. - Review of Systems Additional Findings: ROS: All other ROS is negative unless mentioned above. Medications & Allergies Home Medications: Home Medication List Tamsulosin HCl 0.4 mg [Flomax 0.4 MG] 0.4 mg PO QHS 09/20/16 [History Confirmed 05/19/24] Pravastatin Sodium [Pravachol] 10 mg PO DAILY 08/14/18 [History Confirmed 05/19/24] Cephalexin Mh 500 mg [Keflex 500 mg] 500 mg PO TID #21 cap 05/15/24 [Rx Confirmed 05/19/24] Allergies/Adverse Reactions: Allergies Allergy/AdvReac Type Severity Reaction Status Date / Time gabapentin Allergy Severe Tightness Verified 05/15/24 16:45 of Throat morphine Allergy Severe Rapid Verified 05/15/24 16:45 Heart Beat iodine Allergy Verified 05/15/24 16:45 - Past Medical History Past Medical History: Yes Neurological History: No Pertinent History ENT History: No Pertinent History Cardiac History: High Cholesterol, Hypertension Respiratory History: Asthma Endocrine Medical History: No Pertinent History Musculoskelatal History: Degenerative Disk Disease, Fractures GI Medical History: Ulcer History: Other Pyscho-Social History: No Pertinent History Male Reproductive Disorders: Prostate Problems Comment: Rib fractures - Past Surgical History Past Surgical History: Yes Neuro Surgical History: No Pertinent History Cardiac History: No Pertinent History Respiratory Surgery: No Pertinent History GI Surgical History: Appendectomy Genitourinary Surgical Hx: No Pertinent History Musculskeletal Surgical Hx: Orthopedic Surgery Male Surgical History: No Pertinent History Other Surgical History: 20+ orthopedic surgeries following fall while on the job, HX FX LEFT HEEL (ORIF WITH METAL PLATE), FX SHOULDER AND ROTATOR CUFF REPAIR, Back surgeries including a spinal fusion, BILATERAL CARPAL TUNNEL RELEASES AND SURGERY TO REATTACH WRIST EXTENSORS ON LEFT. - Social History Smoking Status: Never smoker How long have you smoked: 5 Exposure to second hand smoke: No Alcohol: None Drug Use: none - Social Determinants of Health Will the patient participate in the screening: Yes Do you worry about a steady place to live?: No Do you have any problems with any of the following?: No known problems In the past 12 months,have you had to go without utilities?: No Have you or anyone in your house had to go without enough: No Transportation Issues: No Has anyone in your support network made you feel unsafe?: No Does the patient want assistance with any of the above?: No - Physical Exam Vital Signs: Vital Signs - 24 hr Temp Pulse Resp BP BP Pulse Ox 05/19/24 01:55 97.3 F 95 H 18 158/95 97 05/19/24 01:00 108/59 97 05/19/24 00:53 96 05/19/24 00:30 113/71 94 L 05/19/24 00:00 134/104 98 05/18/24 23:30 117/82 99 05/18/24 23:00 145/85 97 05/18/24 22:37 145/97 96 05/18/24 21:32 142/86 98 05/18/24 21:24 99.0 F 97 H 18 142/86 96 General Appearance: no apparent distress Neurologic Exam: alert, oriented x 3, social media assistant 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 tested Eye Exam: PERRL/EOMI, eyes nml inspection Ears, Nose, Throat Exam: normal ENT inspection, pharynx normal, moist mucous membranes Neck Exam: normal inspection, non-tender, supple, full range of motion Respiratory Exam: normal breath sounds, lungs clear Cardiovascular Exam: regular rate/rhythm, normal heart sounds, normal peripheral pulses Gastrointestinal/Abdomen Exam: soft, normal bowel sounds Extremity Exam: other (left hand swollen, red, tender) Skin Exam: normal color Results - Labs Lab/Micro Results: Lab Results-Last 24 Hours 05/18/24 05/18/24 05/18/24 Range/Units 21:35 21:35 23:20 WBC 7.7 (4.23-9.07) x10^3/uL RBC 4.64 (4.63-6.08) x10^6/uL Hgb 13.9 (13.7-17.5) g/dL Hct 42.6 (40.1-51.0) % MCV 91.8 (79.0-92.2) fL MCH 30.0 (25.7-32.2) pg MCHC 32.6 (32.3-36.5) g/dL RDW 13.1 (11.6-14.4) % Plt Count 260 (163-337) x10^3/uL MPV 9.7 (9.4-12.4) fL Gran % 62.4 (34.0-67.9) % Immature Gran % (Auto) 0.1 (0.001-0.429) % Nucleat RBC Rel Count 0.0 (0.00-0.2) % Eos # (Auto) 0.40 (0.04-0.54) x10^3/uL Immature Gran # (Auto) 0.01 (0.001-0.031) x10^3u/L Absolute Lymphs (auto) 1.41 (1.32-3.57) x10^3/uL Absolute Monos (auto) 1.07 H (0.30-0.82) x10^3/uL Absolute Nucleated RBC 0.00 (0.00-0.012) x10^3u/L Lymphocytes % 18.2 L (21.8-53.1) % Monocytes % 13.8 H (5.3-12.2) % Eosinophils % 5.2 (0.8-7.0) % Basophils % 0.3 (0.2-1.2) % Absolute Granulocytes 4.82 (1.78-5.38) x10^3/uL Basophils # 0.02 (0.01-0.08) x10^3/uL ESR 44 H (0-15) mm/hr Sodium 136 (135-145) mmol/L Potassium 3.9 (3.5-5.1) mmol/L Chloride 102 (98-107) mmol/L Carbon Dioxide 24 (22-30) mmol/L Anion Gap 14.6 (5-15) MEQ/L BUN 8 L (9-20) mg/dL Creatinine 0.79 (0.66-1.25) mg/dL Estimated GFR 99.2 ML/MIN Glucose 115 H (74-106) mg/dL Calcium 8.6 (8.4-10.2) mg/dL Total Bilirubin 0.50 (0.2-1.3) mg/dL AST 31 (17-59) U/L ALT 18 (0-50) U/L Alkaline Phosphatase 65 (38-126) U/L Serum Total Protein 6.7 (6.3-8.2) g/dL Albumin 4.0 (3.5-5.0) g/dL - Radiology Impressions Radiology Exams & Impressions: Radiology Procedures Category Date Time Status UPPER EXTREMITY W/O CONTRAST [CT] Stat Exams 05/18/24 22:17 Completed Assessment/Plan (1) Infection of left hand Current Visit: Yes Status: Acute Assessment & Plan: - vanc and zosyn - pain control with iv morphine and toradol - npo. ED physician to contact hand surgeon Dr. Gutierrez. Code(s): L08.9 - LOCAL INFECTION OF THE SKIN AND SUBCUTANEOUS TISSUE, UNSP (2) BPH (benign prostatic hyperplasia) Current Visit: Yes Status: Acute Assessment & Plan: - continue flomax Code(s): N40.0 - BENIGN PROSTATIC HYPERPLASIA WITHOUT LOWER URINRY TRACT SYMP (3) Hyperlipidemia Current Visit: Yes Status: Acute Assessment & Plan: - continue statin Code(s): E78.5 - HYPERLIPIDEMIA, UNSPECIFIED (4) On deep vein thrombosis (DVT) prophylaxis Current Visit: Yes Status: Acute Assessment & Plan: - SCDs for now. Lovenox after surgery. Code(s): Z79.899 - OTHER DETENTION (CURRENT) DRUG THERAPY Telemedicine Encounter - Telemedicine Encounter Telemedicine Encounter: "The entirety of this encounter was performed via Telemedicine" This visit was performed using real-time audio and video connection between my location and thepatients locationwith the assistance of a surrogateat the patients location. Written or verbal consent was obtained from the patient/guardian to perform this visit [facility] technology. Any patient questions regarding the telemedicine interaction were answered.
[2024-05-19] MEDS: VANCOMYCIN 1 GRAM/200 ML BAG 1 GM/200 ML PIGGYBACK IV SCH (02:40)
[2024-05-19] MEDS ORDERED: PHARMACY DOSING REQUIRED: VANCOMYCIN IV SCH (02:45)
[2024-05-19] MEDS ORDERED: MORPHINE SULFATE 2 MG INJ ONE (02:47)
[2024-05-19] MEDS: MORPHINE SULFATE 2 MG INJ IV PRN (02:49)
[2024-05-19] MEDS ORDERED: PIPERACILLIN/TAZOBACTAM IV ONE (05:23)
[2024-05-19] MEDS ORDERED: Sodium Chloride 100ML MINI-BAG PLUS 100 ML IV ONE (05:24)
[2024-05-19] MEDS: PIPERACILLIN/TAZOBACTAM 4.5 GM in Sodium Chloride 100ML MINI-BAG PLUS 100 ML IV SCH (05:33)
[2024-05-19] MEDS ORDERED: NORCO 5/325 MG ONE (05:35)
[2024-05-19] MEDS: NORCO 5/325 MG PO PRN (05:37)
[2024-05-19] MEDS ORDERED: NORCO 5/325 MG PO PRN (07:18)
[2024-05-19] MEDS ORDERED: Narcan 0.4 MG/ML IV PRN (07:20)
[2024-05-19] MEDS ORDERED: TYLENOL 325 MG PO PRN (07:21)
[2024-05-19] MEDS ORDERED: Miralax Powder 17GM PACKET PO PRN (09:22)
[2024-05-19] MEDS ORDERED: PRAVASTATIN SODIUM 10 MG PO SCH (10:00)
--- NOTE | 2024-05-19 10:29 | PCM.CONS ---
History of Present Illness - Consult Date of Consultation Date: 05/19/24 Reason for Consult: Left hand pain Consulting Provider: DEANNA BETH MD - [facility] History of Present Illness: is a 63 year old male, who injured his hand 05/16 when he fell and got hand crushed in a folding rack that he was carrying. Came to ED that day, had XR. Wound was cleansed, and loosely closed. Small metallic FB seen in soft tissu on XR (approx 1 mm). Seen in [facility] 05/17, wounds benign. Opted for observation and cont. of oral abx. he changed dressing 05/18, looked good. Yest he changed dressing and noted signif. increase in redness, swelling, pain, and drainage. Pain extended prox to wrist in dorsal FA. Came to ED last night, CT done, admitted and placed on IV abx Seen today as consult, pt. reports feeling much better with less redness, pain, swelling, and improved mobility. Medications & Allergies Home Medications: Home Medication List Tamsulosin HCl 0.4 mg [Flomax 0.4 MG] 0.4 mg PO QHS 09/20/16 [History Confirmed 05/19/24] Pravastatin Sodium [Pravachol] 10 mg PO DAILY 08/14/18 [History Confirmed 05/19/24] Cephalexin Mh 500 mg [Keflex 500 mg] 500 mg PO TID #21 cap 05/15/24 [Rx Confirmed 05/19/24] Carisoprodol 350 mg [Soma 350 mg] 350 mg PO QID PRN 05/19/24 [History Confirmed 05/19/24] Hydrocodone/Acetaminophen [[place] 10-325 mg] 10 mg PO QID PRN 05/19/24 [History Confirmed 05/19/24] Polyethylene Glycol 3350 17 gm [Miralax Powder 17GM PACKET] 1 packet PO DAILY PRN PRN 05/19/24 [History Confirmed 05/19/24] Allergies/Adverse Reactions: Allergies Allergy/AdvReac Type Severity Reaction Status Date / Time gabapentin Allergy Severe Tightness Verified 05/15/24 16:45 of Throat morphine Allergy Severe Rapid Verified 05/15/24 16:45 Heart Beat iodine Allergy Verified 05/15/24 16:45 - Past Medical History Past Medical History: Yes Neurological History: No Pertinent History ENT History: No Pertinent History Cardiac History: High Cholesterol, Hypertension Respiratory History: Asthma Endocrine Medical History: No Pertinent History Musculoskelatal History: Degenerative Disk Disease, Fractures GI Medical History: Ulcer History: Other Pyscho-Social History: No Pertinent History Male Reproductive Disorders: Prostate Problems Comment: Rib fractures - Past Surgical History Past Surgical History: Yes Neuro Surgical History: No Pertinent History Cardiac History: No Pertinent History Respiratory Surgery: No Pertinent History GI Surgical History: Appendectomy Genitourinary Surgical Hx: No Pertinent History Musculskeletal Surgical Hx: Orthopedic Surgery Male Surgical History: No Pertinent History Other Surgical History: 20+ orthopedic surgeries following fall while on the job, HX FX LEFT HEEL (ORIF WITH METAL PLATE), FX SHOULDER AND ROTATOR CUFF REPAIR, Back surgeries including a spinal fusion, BILATERAL CARPAL TUNNEL RELEASES AND SURGERY TO REATTACH WRIST EXTENSORS ON LEFT. - Social History Smoking Status: Never smoker How long have you smoked: 5 Exposure to second hand smoke: No Alcohol: None Drug Use: none - Social Determinants of Health Will the patient participate in the screening: Yes Do you worry about a steady place to live?: No Do you have any problems with any of the following?: No known problems In the past 12 months,have you had to go without utilities?: No Have you or anyone in your house had to go without enough: No Transportation Issues: No Has anyone in your support network made you feel unsafe?: No Does the patient want assistance with any of the above?: No - Nursing Vital Signs Nursing Vital Signs: Vital Signs - 24 hr Temp Pulse Resp BP BP Pulse Ox 05/19/24 07:54 97.7 F 89 18 127/73 95 05/19/24 04:00 78 16 05/19/24 01:55 97.3 F 95 H 18 158/95 97 05/19/24 01:00 108/59 97 05/19/24 00:53 96 05/19/24 00:30 113/71 94 L 05/19/24 00:00 134/104 98 05/18/24 23:30 117/82 99 05/18/24 23:00 145/85 97 05/18/24 22:37 145/97 96 05/18/24 21:32 142/86 98 05/18/24 21:24 99.0 F 97 H 18 142/86 96 - Physical Exam SpO2: 95 - Narrative Narrative Physical Exam: Ortho Physical Exam Results - Labs Lab/Micro Results: Lab Results-Last 24 Hours 05/18/24 05/18/24 05/18/24 Range/Units 21:35 21:35 23:20 WBC 7.7 (4.23-9.07) x10^3/uL RBC 4.64 (4.63-6.08) x10^6/uL Hgb 13.9 (13.7-17.5) g/dL Hct 42.6 (40.1-51.0) % MCV 91.8 (79.0-92.2) fL MCH 30.0 (25.7-32.2) pg MCHC 32.6 (32.3-36.5) g/dL RDW 13.1 (11.6-14.4) % Plt Count 260 (163-337) x10^3/uL MPV 9.7 (9.4-12.4) fL Gran % 62.4 (34.0-67.9) % Immature Gran % (Auto) 0.1 (0.001-0.429) % Nucleat RBC Rel Count 0.0 (0.00-0.2) % Eos # (Auto) 0.40 (0.04-0.54) x10^3/uL Immature Gran # (Auto) 0.01 (0.001-0.031) x10^3u/L Absolute Lymphs (auto) 1.41 (1.32-3.57) x10^3/uL Absolute Monos (auto) 1.07 H (0.30-0.82) x10^3/uL Absolute Nucleated RBC 0.00 (0.00-0.012) x10^3u/L Lymphocytes % 18.2 L (21.8-53.1) % Monocytes % 13.8 H (5.3-12.2) % Eosinophils % 5.2 (0.8-7.0) % Basophils % 0.3 (0.2-1.2) % Absolute Granulocytes 4.82 (1.78-5.38) x10^3/uL Basophils # 0.02 (0.01-0.08) x10^3/uL ESR 44 H (0-15) mm/hr Sodium 136 (135-145) mmol/L Potassium 3.9 (3.5-5.1) mmol/L Chloride 102 (98-107) mmol/L Carbon Dioxide 24 (22-30) mmol/L Anion Gap 14.6 (5-15) MEQ/L BUN 8 L (9-20) mg/dL Creatinine 0.79 (0.66-1.25) mg/dL Estimated GFR 99.2 ML/MIN Glucose 115 H (74-106) mg/dL Calcium 8.6 (8.4-10.2) mg/dL Total Bilirubin 0.50 (0.2-1.3) mg/dL AST 31 (17-59) U/L ALT 18 (0-50) U/L Alkaline Phosphatase 65 (38-126) U/L Serum Total Protein 6.7 (6.3-8.2) g/dL Albumin 4.0 (3.5-5.0) g/dL Microbiology 05/18/24 21:35 Wound Culture - Preliminary Hand - Left Top NO GROWTH TO DATE - Radiology Impressions Radiology Exams & Impressions: Radiology Procedures Category Date Time Status UPPER EXTREMITY W/O CONTRAST [CT] Stat Exams 05/18/24 22:17 Completed
[2024-05-19] MEDS: NORCO 10-325 MG PO SCH (10:46)
[2024-05-19] MEDS: VANCOMYCIN 1.25 GM/250 ML BAG 1.25 GM/250 ML PIGGYBACK IV SCH (10:47)
[2024-05-19] MEDS: SOMA 350 MG PO PRN (14:52)
[2024-05-19] MEDS: celeBREX 100 MG PO PRN (20:23)
[2024-05-19] MEDS: Zocor 10MG PO SCH (21:21)
[2024-05-19] MEDS: Flomax 0.4 MG PO SCH (21:21)
[2024-05-20 04:49] LABS: Hematocrit 41.2 % (40.1-51.0); Hemoglobin 13.5 g/dL (13.7-17.5); Mean Cell Volume 92.4 fL (79.0-92.2); Mean Corpuscular Hemoglobin 30.3 pg (25.7-32.2); Mean Corpuscular Hgb Concent. 32.8 g/dL (32.3-36.5); Mean Platelet Volume 9.8 fL (9.4-12.4); Platelet Count 259 x10^3/uL (163-337); Red Blood Count 4.46 x10^6/uL (4.63-6.08); White Blood Count 5.2 x10^3/uL (4.23-9.07)
[2024-05-20 05:03] LABS: ALBUMIN 3.8 g/dL (3.5-5.0); ANION GAP 14.5 MEQ/L (5-15); BILIRUBIN,TOTAL 0.5 mg/dL (0.2-1.3); Calcium 8.7 mg/dL (8.4-10.2); Creatinine 1 0.82 mg/dL (0.66-1.25); EST GLOMERULAR FILTRATION RATE 98.1 ML/MIN; Total Protein 6.4 g/dL (6.3-8.2)
--- NOTE | 2024-05-20 05:07 | PCM.NOTE ---
Date and Time: 05/20/24 2757 Subjective Assessment: Mr. Son, a 63-year-old male with a history of BPH and hyperlipidemia, who presented 05/18/24 with worsening left-hand swelling, redness, and pain three days after a crush injury. He was initially seen in ED on 05/15/24 and treated with cephalexin but returned to the ED due to progression of symptoms. CT imaging suggests an acute infectious process, likely cellulitis, with concern for possible tenosynovitis and underlying osteomyelitis. He is being treated with IV Vancomycin and Zosyn, along with pain management. Dr. Horner (ortho) has been consulted for further evaluation and possible surgical intervention. For his chronic conditions, he will continue Flomax for BPH and statin therapy for hyperlipidemia. DVT prophylaxis with SCDs is in place, with plans to initiate Lovenox postoperatively if needed. 05/20/24: Met with patient bedside. Endorses improvement in left hand pain/swelling. Erythema receding marked borders. Ortho following. No plans for surgical intervention. Will continue IV abx tonight. Possible discharge tomorrow with oral abx pending treatment response. - Review of Systems Constitutional: No Symptoms Eyes: No Symptoms Ears, Nose, & Throat: No Symptoms Respiratory: No Symptoms Cardiac: No Symptoms Abdominal/Gastrointestinal: No Symptoms Genitourinary Symptoms: No Symptoms Musculoskeletal: No Symptoms Skin: Cellulitis (Left hand) Neurological: No Symptoms Psychological: No Symptoms Endocrine: No Symptoms Hematologic/Lymphatic: No Symptoms Immunological/Allergic: No Symptoms Objective Exam General Appearance: no apparent distress Neurologic Exam: alert, oriented x 3, cooperative Skin Exam: other (Left hand with erythema/edema -receding marked borders) Eye Exam: PERRL Ears, Nose, Throat Exam: normal ENT inspection Neck Exam: normal inspection Respiratory Exam: normal breath sounds, lungs clear Cardiovascular Exam: regular rate/rhythm, normal heart sounds Gastrointestinal/Abdomen Exam: soft, normal bowel sounds Extremity Exam: normal inspection Back Exam: normal inspection Male Genitalia Exam: deferred Rectal Exam: deferred Objective Data Vital Signs: Vital Signs - 24 hr Temp Pulse Resp BP Pulse Ox 05/20/24 03:53 97.7 F 77 18 134/64 96 05/19/24 23:42 97.8 F 71 16 117/68 96 05/19/24 20:00 98.0 F 88 18 127/79 97 05/19/24 16:00 98.3 F 96 H 20 134/67 96 05/19/24 12:00 97.8 F 95 H 20 152/78 98 05/19/24 10:29 95 05/19/24 07:54 97.7 F 89 18 127/73 95 Pain Assessment - Last Documented Pain Intensity 2 Pain Scale Used 0-10 Pain Scale Intake and Output: Intake & Output 05/17/24 05/18/24 05/19/24 05/20/24 11:59 11:59 11:59 11:59 Intake Total 1760 Output Total 690 Balance 1070 Weight 76 kg Lab Results: Lab Results-Last 24 Hours 05/20/24 05/20/24 Range/Units 04:06 04:06 WBC 5.2 (4.23-9.07) x10^3/uL RBC 4.46 L (4.63-6.08) x10^6/uL Hgb 13.5 L (13.7-17.5) g/dL Hct 41.2 (40.1-51.0) % MCV 92.4 H (79.0-92.2) fL MCH 30.3 (25.7-32.2) pg MCHC 32.8 (32.3-36.5) g/dL RDW 13.0 (11.6-14.4) % Plt Count 259 (163-337) x10^3/uL MPV 9.8 (9.4-12.4) fL Sodium 138 (135-145) mmol/L Potassium 4.0 (3.5-5.1) mmol/L Chloride 103 (98-107) mmol/L Carbon Dioxide 25 (22-30) mmol/L Anion Gap 14.5 (5-15) MEQ/L BUN 8 L (9-20) mg/dL Creatinine 0.82 (0.66-1.25) mg/dL Estimated GFR 98.1 ML/MIN Glucose 89 (74-106) mg/dL Calcium 8.7 (8.4-10.2) mg/dL Total Bilirubin 0.50 (0.2-1.3) mg/dL AST 26 (17-59) U/L ALT 16 (0-50) U/L Alkaline Phosphatase 67 (38-126) U/L Serum Total Protein 6.4 (6.3-8.2) g/dL Albumin 3.8 (3.5-5.0) g/dL Radiology Exams: Radiology Procedures Category Date Time Status UPPER EXTREMITY W/O CONTRAST [CT] Stat Exams 05/18/24 22:17 Completed Assessment/Plan (1) Infection of left hand Current Visit: Yes Status: Acute Assessment & Plan: -CT reviewed showing diffuse soft tissue swelling with fluid collections, a tiny air focus, and possible tenosynovitis, with underlying osteomyelitis not excluded -Continue vanc and zosyn for broad spectrum coverage -CBC reviewed WNL -ESR reviewed and elevated at 44 -Consider MRI -Left hand culture with NGTD -pending final read - pain control with [place] and Toradol -Dr. Horner (Ortho consulted) -discussed case - will hold surgical intervention for now - would like one more day of vanc/zosyn - possible dc tomorrow pending treatment response on oral abx Code(s): L08.9 - LOCAL INFECTION OF THE SKIN AND SUBCUTANEOUS TISSUE, UNSP (2) BPH (benign prostatic hyperplasia) Current Visit: Yes Status: Acute Assessment & Plan: - continue flomax Code(s): N40.0 - BENIGN PROSTATIC HYPERPLASIA WITHOUT LOWER URINRY TRACT SYMP (3) Hyperlipidemia Current Visit: Yes Status: Acute Assessment & Plan: - continue statin Code(s): E78.5 - HYPERLIPIDEMIA, UNSPECIFIED (4) On deep vein thrombosis (DVT) prophylaxis Current Visit: Yes Status: Acute Assessment & Plan: - SCDs for now. Lovenox after surgery. VTE: SCD - Lovenox after surgery Dispo: 2-3 days Code: Full code Code(s): Z79.899 - OTHER LONG-TERM (CURRENT) DRUG THERAPY
--- NOTE | 2024-05-20 08:52 | CONS ---
REASON FOR CONSULT: Left hand pain. HISTORY: A 63-year-old male presented to the emergency room last night for evaluation of increasing pain, redness, and swelling of the left hand. This problem began on 05/16 when he injured his hand in a fall. He was carrying a heavy folding stand; and when he fell forward, his hand got trapped in the stand and was crushed. He came to the emergency room that day and was evaluated. He had an open wound on the dorsal hand. X-ray showed no fracture but did show small metallic foreign body within the soft tissue. Wound cleansing and debridement were carried out followed by loose primary closure. He was discharged with oral antibiotics and seen the following day in the orthopedic clinic on 05/17. At that time, everything was stable. There was swelling but intact neurovascular status. No redness or signs of infection. We elected for observation and continuation of oral antibiotics. He went home that day and changed his bandages the following day on 05/18, and all was well at that time. When he went to change the bandages on Monday, 05/18, he noted increased redness in the hand. He came to the emergency room that night, was admitted. He was placed on IV antibiotics overnight. A CT scan was done in the emergency room showing no evidence of abscess. He is seen today on 05/19 as an inpatient for orthopedic consultation. The patient notes that his symptoms are much improved overnight while on IV antibiotics. PAST MEDICAL HISTORY: High cholesterol, hypertension, asthma, degenerative disc disease, fractures, previous ulcer. 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 HOME MEDICATIONS: Flomax, Pravachol, Keflex. ALLERGIES: Gabapentin produces tightness in throat. Morphine produces rapid heartbeat. Iodine allergy. PHYSICAL EXAMINATION: VITAL SIGNS: Temperature 97.7, pulse 89, respiration 18, pulse ox 95 on room air. GENERAL: Well-developed and well-nourished white male. Awake, alert, oriented, cooperative, and in no acute distress. The patient is supine in bed. EXTREMITIES: Left arm exam: There is swelling of the dorsal hand and mild redness. There are wrinkles appearing in the skin suggesting that swelling is receding. There is a 1.5 cm transverse dorsal laceration with sutures in place. The wound is approximated with no active drainage. The redness starts at the MP level and extends back to the wrist level with minimal redness proximal to the wrist. He reports discomfort proximal to the wrist. There is minimal tenderness to palpation, and he tolerates flex and extension of the wrist without significant increase in wrist pain or forearm pain. He is mildly tender in the dorsal hand. The fingers and swollen with significant reduction of range of motion but consistent with what was seen on exam in office 2 days ago. IMAGING: CT scan left hand performed in the emergency room early this morning showed soft tissue swelling, no fluid pocket or abscess, no bony destruction, mild swelling in the dorsal tendons. IMPRESSION: Cellulitis left hand with recent injury and metallic foreign body, significant improvement on IV antibiotics in less than 24 hours. PLAN: Recommend continue IV antibiotics and reassess in the morning. Surgical removal of the foreign body will again be discussed, however if the infection is resolving the original plan was to let them heal and evaluate. It is possible the foreign body will not need to be removed so long as healing progresses uneventfully.
[2024-05-20] MEDS: TROUGH DRUG LEVELS IJ ONE (09:42)
[2024-05-20] MEDS: celeBREX 100 MG PO PRN (10:17)
[2024-05-20] MEDS: TORAdol 30 mg Injection IV PRN (22:54)
[2024-05-21 05:07] LABS: Absolute Neutrophil Ct (ANC) 3.16 x10^3/uL (1.78-5.38); BASOPHIL % 0.9 % (0.2-1.2); Basophil (Absolute #) 0.05 x10^3/uL (0.01-0.08); Eosinophil % 8.3 % (0.8-7.0); Eosinophil (Absolute #) 0.46 x10^3/uL (0.04-0.54); Hematocrit 39.9 % (40.1-51.0); Hemoglobin 12.9 g/dL (13.7-17.5); IMMATURE GRAN # 0.06 x10^3u/L (0.001-0.031); IMMATURE GRAN % 1.1 % (0.001-0.429); Lymphocyte (Absolute #) 1.21 x10^3/uL (1.32-3.57); Lymphocytes % 21.8 % (21.8-53.1); Mean Corpuscular Hemoglobin 30.1 pg (25.7-32.2); Mean Corpuscular Hgb Concent. 32.3 g/dL (32.3-36.5); Mean Platelet Volume 9.8 fL (9.4-12.4); Monocytes % 10.8 % (5.3-12.2); Neutrophil % 57.1 % (34.0-67.9); Platelet Count 281 x10^3/uL (163-337); Red Blood Count 4.29 x10^6/uL (4.63-6.08); Red Cell Distribution Width 13.1 % (11.6-14.4); White Blood Count 5.5 x10^3/uL (4.23-9.07)
--- NOTE | 2024-05-21 05:24 | PCM.NOTE ---
Date and Time: 05/21/24 05 Subjective Assessment: Mr. Son, a 63-year-old male with a history of BPH and hyperlipidemia, who presented 05/18/24 with worsening left-hand swelling, redness, and pain three days after a crush injury. He was initially seen in ED on 05/15/24 and treated with cephalexin but returned to the ED due to progression of symptoms. CT imaging suggests an acute infectious process, likely cellulitis, with concern for possible tenosynovitis and underlying osteomyelitis. He is being treated with IV Vancomycin and Zosyn, along with pain management. Dr. Horner (ortho) has been consulted for further evaluation and possible surgical intervention. For his chronic conditions, he will continue Flomax for BPH and statin therapy for hyperlipidemia. DVT prophylaxis with SCDs is in place, with plans to initiate Lovenox postoperatively if needed. 05/20/24: Met with patient bedside. Endorses improvement in left hand pain/swelling. Erythema receding marked borders. Ortho following. No plans for surgical intervention. Will continue IV abx tonight. Possible discharge tomorrow with oral abx pending treatment response. Objective Data Vital Signs: Vital Signs - 24 hr Temp Pulse Resp BP Pulse Ox 05/21/24 04:00 97.4 F 78 18 118/63 95 05/20/24 23:52 98.9 F 73 15 131/75 96 05/20/24 20:00 98.3 F 78 20 124/73 98 05/20/24 16:00 97.7 F 72 16 131/75 97 05/20/24 11:08 97.8 F 88 16 128/68 97 05/20/24 07:59 97.8 F 76 16 124/68 95 Pain Assessment - Last Documented Pain Intensity 4 Pain Scale Used 0-10 Pain Scale Intake and Output: Intake & Output 05/18/24 05/19/24 05/20/24 05/21/24 11:59 11:59 11:59 11:59 Intake Total 2790 1540 Output Total 690 Balance 2100 1540 Weight 76 kg Lab Results: Lab Results-Last 24 Hours 05/20/24 05/21/24 Range/Units 09:41 05:01 WBC 5.5 (4.23-9.07) x10^3/uL RBC 4.29 L (4.63-6.08) x10^6/uL Hgb 12.9 L (13.7-17.5) g/dL Hct 39.9 L (40.1-51.0) % MCV 93.0 H (79.0-92.2) fL MCH 30.1 (25.7-32.2) pg MCHC 32.3 (32.3-36.5) g/dL RDW 13.1 (11.6-14.4) % Plt Count 281 (163-337) x10^3/uL MPV 9.8 (9.4-12.4) fL Gran % 57.1 (34.0-67.9) % Immature Gran % (Auto) 1.1 H (0.001-0.429) % Nucleat RBC Rel Count 0.0 (0.00-0.2) % Eos # (Auto) 0.46 (0.04-0.54) x10^3/uL Immature Gran # (Auto) 0.06 H (0.001-0.031) x10^3u/L Absolute Lymphs (auto) 1.21 L (1.32-3.57) x10^3/uL Absolute Monos (auto) 0.60 (0.30-0.82) x10^3/uL Absolute Nucleated RBC 0.00 (0.00-0.012) x10^3u/L Lymphocytes % 21.8 (21.8-53.1) % Monocytes % 10.8 (5.3-12.2) % Eosinophils % 8.3 H (0.8-7.0) % Basophils % 0.9 (0.2-1.2) % Absolute Granulocytes 3.16 (1.78-5.38) x10^3/uL Basophils # 0.05 (0.01-0.08) x10^3/uL Vancomycin Trough 10.91 (10-20) ug/mL Assessment/Plan (1) Infection of left hand Current Visit: Yes Status: Acute Assessment & Plan: -CT reviewed showing diffuse soft tissue swelling with fluid collections, a tiny air focus, and possible tenosynovitis, with underlying osteomyelitis not excluded -Continue vanc and zosyn for broad spectrum coverage -CBC reviewed WNL -ESR reviewed and elevated at 44 -Consider MRI -Left hand culture with NGTD -pending final read - pain control with [place] and Toradol -Dr. Horner (Ortho consulted) -discussed case - will hold surgical intervention for now - would like one more day of vanc/zosyn - possible dc tomorrow pending treatment response on oral abx Code(s): L08.9 - LOCAL INFECTION OF THE SKIN AND SUBCUTANEOUS TISSUE, UNSP (2) BPH (benign prostatic hyperplasia) Current Visit: Yes Status: Acute Assessment & Plan: - continue flomax Code(s): N40.0 - BENIGN PROSTATIC HYPERPLASIA WITHOUT LOWER URINRY TRACT SYMP (3) Hyperlipidemia Current Visit: Yes Status: Acute Assessment & Plan: - continue statin Code(s): E78.5 - HYPERLIPIDEMIA, UNSPECIFIED (4) On deep vein thrombosis (DVT) prophylaxis Current Visit: Yes Status: Acute Assessment & Plan: - SCDs for now. Lovenox after surgery. VTE: SCD - Lovenox after surgery Dispo: 2-3 days Code: Full code Code(s): L08.9 - LOCAL INFECTION OF THE SKIN AND SUBCUTANEOUS TISSUE, UNSP (2) BPH (benign prostatic hyperplasia) Current Visit: Yes Status: Acute Code(s): N40.0 - BENIGN PROSTATIC HYPERP LASIA WITHOUT LOWER URINRY TRACT SYMP (3) Hyperlipidemia Current Visit: Yes Status: Acute Code(s): E78.5 - HYPERLIPIDEMIA, UNSPECIFIED (4) On deep vein thrombosis (DVT) prophylaxis Current Visit: Yes Status: Acute Code(s): Z79.899 - OTHER MINERAL SURVEYING TECHNICIAN (CURRENT) DRUG THERAPY
[2024-05-21 05:40] LABS: ALBUMIN 3.6 g/dL (3.5-5.0); ANION GAP 14.1 MEQ/L (5-15); BILIRUBIN,TOTAL 0.4 mg/dL (0.2-1.3); Calcium 8.6 mg/dL (8.4-10.2); Creatinine 1 0.91 mg/dL (0.66-1.25); EST GLOMERULAR FILTRATION RATE 94.1 ML/MIN; Potassium 3.9 mmol/L (3.5-5.1); Total Protein 6.2 g/dL (6.3-8.2)
[2024-05-21 07:29] VITALS: RESP 16
[2024-05-21 11:32] VITALS: BP 136/73; PULSE 73; TEMP 97.8; O2SAT 96
--- NOTE | 2024-05-21 11:46 | PCM.DS ---
Discharge Summary Date of Admission: 05/19/24 01:41 Date of Discharge: 05/21/24 Admitting Physician: MELISSA STEVEN MD Consults: Consults on Case 05/19/24 07:19 Consult Ortho ROUTINE Primary Care Provider: KYLHA SAENZ MALISSA Allergies Allergies gabapentin Allergy (Severe, Verified 05/15/24 16:45) Tightness of Throat rash and itch morphine Allergy (Severe, Verified 05/15/24 16:45) Rapid Heart Beat states "like anxiety" iodine Allergy (Verified 05/15/24 16:45) Hospital Summary - Hospital Course Hospital Course: Mr. Son, a 63-year-old male with a history of BPH and hyperlipidemia, who p resented 05/18/24 with worsening left-hand swelling, redness, and pain three days after a crush injury. He was initially seen in ED on 05/15/24 and treated with cephalexin but returned to the ED due to progression of symptoms. CT imaging suggests an acute infectious process, likely cellulitis, with concern for possible tenosynovitis and underlying osteomyelitis. IP treatment with Vancomycin and Zosyn, along with pain management. Dr. Beth (ortho) consulted for further evaluation and possible surgical intervention. There has been noted improvement in erythema/edema. Will hold surgical intervention for now. Patient cleared by ortho for discharge on clindamycin. Patient to follow up OP with Dr. Beth on Monday. Wound Cultures negative. Patient agreeable to plan and stable for discharge. Discharge Note New Diagnosis: Cellulitis New Medications: Clindamycin/pro-biotic Follow Up: Ortho Monday I spent 35 minutes [id number] with the patient on the day of discharge performing discharge exam, discussing hospital stay and discharge instructions with patient and caregivers, preparation of discharge records, prescriptions & referral forms and addressing any questions/concerns the patient had as documented above. - Vitals & Intake/Output Vital Signs: Vital Signs Temperature 97.8 F 05/21/24 11:31 Pulse Rate 73 05/21/24 11:31 Respiratory Rate 16 05/21/24 11:31 Blood Pressure 136/73 05/21/24 11:31 O2 Sat by Pulse Oximetry 96 05/21/24 11:31 Intake & Output: Intake & Output 05/18/24 05/19/24 05/20/24 05/21/24 11:59 11:59 11:59 11:59 Intake Total 2790 2120 Output Total 690 Balance 2100 2120 Weight 76 kg - Lab Result Diagrams: 05/21/24 05:01 05/21/24 05:01 Lab Results-Last 24 Hrs: Lab Results-Last 24 Hours 05/21/24 05/21/24 Range/Units 05:01 05:01 WBC 5.5 (4.23-9.07) x10^3/uL RBC 4.29 L (4.63-6.08) x10^6/uL Hgb 12.9 L (13.7-17.5) g/dL Hct 39.9 L (40.1-51.0) % MCV 93.0 H (79.0-92.2) fL MCH 30.1 (25.7-32.2) pg MCHC 32.3 (32.3-36.5) g/dL RDW 13.1 (11.6-14.4) % Plt Count 281 (163-337) x10^3/uL MPV 9.8 (9.4-12.4) fL Gran % 57.1 (34.0-67.9) % Immature Gran % (Auto) 1.1 H (0.001-0.429) % Nucleat RBC Rel Count 0.0 (0.00-0.2) % Eos # (Auto) 0.46 (0.04-0.54) x10^3/uL Immature Gran # (Auto) 0.06 H (0.001-0.031) x10^3u/L Absolute Lymphs (auto) 1.21 L (1.32-3.57) x10^3/uL Absolute Monos (auto) 0.60 (0.30-0.82) x10^3/uL Absolute Nucleated RBC 0.00 (0.00-0.012) x10^3u/L Lymphocytes % 21.8 (21.8-53.1) % Monocytes % 10.8 (5.3-12.2) % Eosinophils % 8.3 H (0.8-7.0) % Basophils % 0.9 (0.2-1.2) % Absolute Granulocytes 3.16 (1.78-5.38) x10^3/uL Basophils # 0.05 (0.01-0.08) x10^3/uL Sodium 137 (135-145) mmol/L Potassium 3.9 (3.5-5.1) mmol/L Chloride 102 (98-107) mmol/L Carbon Dioxide 25 (22-30) mmol/L Anion Gap 14.1 (5-15) MEQ/L BUN 7 L (9-20) mg/dL Creatinine 0.91 (0.66-1.25) mg/dL Estimated GFR 94.1 ML/MIN Glucose 80 (74-106) mg/dL Calcium 8.6 (8.4-10.2) mg/dL Total Bilirubin 0.40 (0.2-1.3) mg/dL AST 26 (17-59) U/L ALT 15 (0-50) U/L Alkaline Phosphatase 61 (38-126) U/L Serum Total Protein 6.2 L (6.3-8.2) g/dL Albumin 3.6 (3.5-5.0) g/dL Micro Results-Entire Visit: Microbiology 05/18/24 21:35 Wound Culture - Preliminary Hand - Left Top ORGANISMS ISOLATED ARE CONSISTENT WITH NORMAL SKIN KEN MODERATE GROWTH, NO PREDOMINANT ORGANISM Discharge Exam General Appearance: no apparent distress Neurologic Exam: alert, oriented x 3, cooperative Eye Exam: PERRL Ears, Nose, Throat Exam: normal ENT inspection Neck Exam: normal inspection Respiratory Exam: normal breath sounds, lungs clear Cardiovascular Exam: regular rate/rhythm, normal heart sounds Gastrointestinal/Abdomen Exam: soft, normal bowel sounds Male Genitalia Exam: deferred Rectal Exam: deferred Back Exam: normal inspection Extremity Exam: other (left hand with erythema/edema) Skin Exam: warm, dry, other (Left hand with erythema/edema - scabbed wound) Final Diagnosis/Problem List - Final Discharge Diagnosis/Problem (1) Infection of left hand Current Visit: Yes Status: Acute Code(s): L08.9 - LOCAL INFECTION OF THE SK IN AND SUBCUTANEOUS TISSUE, UNSP (2) BPH (benign prostatic hyperplasia) Current Visit: Yes Status: Chronic Code(s): N40.0 - BENIGN PROSTATIC HYPERPLASIA WITHOUT LOWER URINRY TRACT SYMP (3) Hyperlipidemia Current Visit: Yes Status: Chronic Code(s): E78.5 - HYPERLIPIDEMIA, UNSPECIFIED (4) On deep vein thrombosis (DVT) prophylaxis Current Visit: Yes Status: Chronic Code(s): Z79.899 - OTHER PRISON (CURRENT) DRUG THERAPY - Discharge Discharge Date: 05/21/24 Disposition: Home, Self-Care Condition: Stable Prescriptions: New Lactobacillus Acidophilus/Fos [Acidophilus Probiotic Tablet] 1 each PO DAILY 30 Days #30 tablet clindamycin HCL [Cleocin HCl] 300 mg PO TID 7 Days #21 cap clindamycin HCL [Clindamycin HCl] 150 mg PO TID 7 Days #21 cap Continue Tamsulosin HCl 0.4 mg [Flomax 0.4 MG] 0.4 mg PO QHS Pravastatin Sodium [Pravachol] 10 mg PO DAILY Polyethylene Glycol 3350 17 gm [Miralax Powder 17GM PACKET] 1 packet PO DAILY PRN PRN PRN Reason: Constipation Carisoprodol 350 mg [Soma 350 mg] 350 mg PO QID PRN Hydrocodone/Acetaminophen [[place] 10-325 mg] 10 mg PO QID PRN Celecoxib 100 mg [celeBREX 100 MG] 200 mg PO DAILY Discontinued Cephalexin Mh 500 mg [Keflex 500 mg] 500 mg PO TID #21 cap Follow up with: KYLAH SAENZ MD [Primary Care Provider] - DEANNA BETH MD [ACTIVE STAFF] - (Monday)
--- NOTE | 2024-05-22 08:48 | PROG NOTE ---
SUBJECTIVE: Followup left hand cellulitis, patient notes continued improvement, reporting less pain, less redness, less swelling, improved range of motion. OBJECTIVE: VITAL SIGNS: Temperature 97.7, pulse 74, respirations 16, pulse ox 95. GENERAL: Patient is awake, alert, oriented, and in no acute distress. EXTREMITIES: Left hand exam reveals mild residual swelling. There is no pain or swelling at the wrist or forearm. He can flex and extend the wrist without difficulty. He can open and close the fingers but flexion at the MP level is limited to approximately 45 degrees actively but they can be passively stretched beyond that. He remains mildly tender in the dorsal hand with a faint redness, the original laceration is well approximated with sutures in place. No erythema or drainage. LABORATORY: Morning labs, CBC: White cell count 5.5, hemoglobin 12.9, hematocrit 39.9. Chem panel unremarkable. ASSESSMENT: Cellulitis, left hand, improving on intravenous antibiotics. PLAN: Check sed rate today and compare to prior sed rate from 05/18, which was 44. If significant improvement noted in sed rate, correlating with improvement in clinical outcome, would discharge on oral antibiotics.
--- NOTE | 2024-05-22 08:50 | PROG NOTE ---
CHIEF COMPLAINT: Left hand pain and swelling. SUBJECTIVE: Patient reports improvement in hand pain, swelling, and range of motion since yesterday. He was admitted approximately 36 hours ago and has been on IV antibiotics since that time. He was evaluated by me personally yesterday morning and he had already noticed improvement in hand symptoms since his admission less than 12 hours prior to that. In the past 24 hours, he has noted steady improvement. He no longer has any pain in the forearm itself, but only pain in the dorsal hand. He reports that he is able to move his fingers better and can flex and extend his wrist with minimal difficulty. OBJECTIVE: VITAL SIGNS: Afebrile. Vital signs stable. White cell count within normal limits. EXTREMITIES: Left hand: Redness is seen in the dorsal hand but less red than yesterday. Swelling has diminished. The wound is approximated with sutures in place and no signs of active drainage. There is no redness at the wrist or proximal to the wrist. He is nontender in the forearm and wrist. He can flex and extend the wrist. He has mild tenderness in the dorsal hand and no tenderness to the fingers. ASSESSMENT: 1) Cellulitis, left hand, improving. 2) Metallic foreign body left hand. PLAN: Continue IV antibiotics. Continue to monitor situation. So long as symptoms continue to improve, he will be switched to oral antibiotics and discharge possibly in 24 hours.
== END 2024-05-21 13:35 | disposition home or self-care (01) ==
LOC: ED 21:23 → MED SURG 05-19 01:41
PROVIDERS: ADMIT Internal Medicine; ATTEND Internal Medicine
DX: L08.9 Local infection of the skin and subcutaneous tissue, unspecified (principal); L03.114 Cellulitis of left upper limb; N40.0 Benign prostatic hyperplasia without lower urinary tract symptoms; E78.5 Hyperlipidemia, unspecified; I10 Essential (primary) hypertension; S67.22XD Crushing injury of left hand, subsequent encounter; Z79.899 Other long term (current) drug therapy; Z79.01 Long term (current) use of anticoagulants
CPT/HCPCS: 36415; 73200; 80053; 80202; 85025; 85027; 85652; 87070; 93268; 96374; 96375; 99221; 99232; 99285; G0378; Q3014; J1885; J2270; J2543; A9270-GY; J3370

== ENCOUNTER 2024-05-31 23:01 | Inpatient (IN) | payer MEDICARE ==
--- NOTE | 2024-05-31 23:25 | ERPHSYRPT ---
- History of Present Illness Time Seen by Provider: 05/31/24 23:15 Source: patient, family Exam Limitations: no limitations Patient Subjective Stated Complaint: left hand swelling Triage Nursing Assessment: Pt ambulated into ER without diff, at bedside. Pt's left hand is swollen and red from injury 2 weeks ago. The swelling had gone down but increased this morning around 5am. Pt has a 1.2 cm incision to the top of left hand that is healing but has some slight dried drainage around it. Physician History: This is a right-handed 63-year-old white male patient of Dr. aSlmon who presents to the emergency department with a crushing injury to the left hand 2 to 3 weeks ago followed by evaluation emergency department, placed in the hospital with intravenous antibiotics and obtain consult with our orthopedic services Drs. Carr and Evens. He has been seen by them in the orthopedic service clinic as an outpatient. Patient is currently on Keflex and sulfa antibiotics. The pain, redness and swelling was improving. However today, approximately 5 AM when he woke up the pain, swelling and redness had increased. Patient has known metallic foreign body in the deep subcutaneous space of the dorsal aspect of the left hand. Occurred: other (Condition has been present for approximately 2 to 3 weeks) Method of Injury: other (Crush injury over 2 weeks ago) Quality: aching, throbbing Severity of Pain-Max: moderate Severity of Pain-Current: moderate Extremities Pain Location: hand: left Modifying Factors: Improves With: nothing Associated Symptoms: none Allergies/Adverse Reactions: gabapentin Allergy (Severe, Verified 05/31/24 23:16) Tightness of Throat rash and itch morphine Allergy (Severe, Verified 05/31/24 23:16) Rapid Heart Beat states "like anxiety" iodine Allergy (Verified 05/31/24 23:16) Home Medications: Tamsulosin HCl 0.4 mg [Flomax 0.4 MG] 0.4 mg PO QHS 09/20/16 [History] Pravastatin Sodium [Pravachol] 10 mg PO HS 08/14/18 [History] Carisoprodol 350 mg [Soma 350 mg] 350 mg PO QID PRN 05/19/24 [History] Hydrocodone/Acetaminophen [[place] 10-325 mg] 10 mg PO QID PRN 05/19/24 [History] Polyethylene Glycol 3350 17 gm [Miralax Powder 17GM PACKET] 1 packet PO DAILY PRN PRN 05/19/24 [History] Celecoxib 100 mg [celeBREX 100 MG] 200 mg PO DAILY 05/20/24 [History] Cephalexin Mh 500 mg [Keflex 500 mg] 1 tab PO QID 05/31/24 [History] Sulfamethoxazole/Trimethoprim [Bactrim Ds Tablet] 1 each PO BID 05/31/24 [History] Hx Tetanus, Diphtheria Vaccination/Date Given: Yes Hx Influenza Vaccination/Date Given: Yes Hx Pneumococcal Vaccination/Date Given: No Travel Risk - International Travel Have you traveled outside of the country in past 3 weeks: No - Emerging Infectious Disease Are you exhibiting symptoms associated with any current EIDs: No - Review of Systems Constitutional: Fever (Earlier today per his spouse's report) Eyes: No Symptoms Ears, Nose, & Throat: No Symptoms Respiratory: No Symptoms Cardiac: No Symptoms Abdominal/Gastrointestinal: Constipation Genitourinary Symptoms: No Symptoms Musculoskeletal: Other (Pain left hand) Skin: Cellulitis (Swelling left hand. Redness left hand) Neurological: Dizziness (Patient felt a little dizzy twice earlier today) Psychological: No Symptoms Endocrine: No Symptoms Hematologic/Lymphatic: No Symptoms Immunological/Allergic: No Symptoms All Other Systems: Reviewed and Negative - Past Medical History Pertinent Past Medical History: Yes Neurological History: No Pertinent History ENT History: No Pertinent History Cardiac History: High Cholesterol, Hypertension Respiratory History: Asthma Endocrine Medical History: No Pertinent History Musculoskeletal History: Degenerative Disk Disease, Fractures GI Medical History: Ulcer History: Other Psycho-Social History: No Pertinent History Male Reproductive Disorders: Prostate Problems Other Medical History: Rib fractures - Past Surgical History Past Surgical History: Yes Neuro Surgical History: No Pertinent History Cardiac: No Pertinent History Respiratory: No Pertinent History Gastrointestinal: Appendectomy Genitourinary: No Pertinent History Musculoskeletal: Orthopedic Surgery Male Surgical History: No Pertinent History Other Surgical History: 20+ orthopedic surgeries following fall while on the job, HX FX LEFT HEEL (ORIF WITH METAL PLATE), FX SHOULDER AND ROTATOR CUFF REPAIR, Back surgeries including a spinal fusion, BILATERAL CARPAL TUNNEL RELEASES AND SURGERY TO REATTACH WRIST EXTENSORS ON LEFT. - Social History Smoking Status: Former smoker Exposure to second hand smoke: No Drug Use: none - Social Determinants of Health Will the patient participate in the screening: Yes Do you worry about a steady place to live?: No Do you have any problems with any of the following?: No known problems In the past 12 months,have you had to go without utilities?: No Transportation Issues: No Has anyone in your support network made you feel unsafe?: No Have you or anyone in your house had to go w/o enough food: No - Nursing Vital Signs Nursing Vital Signs: Initial Vital Signs Temperature 98.5 F 05/31/24 23:07 Pulse Rate 104 H 05/31/24 23:07 Respiratory Rate 18 05/31/24 23:07 Blood Pressure 148/99 05/31/24 23:07 O2 Sat by Pulse Oximetry 97 05/31/24 23:07 Pain Scale Pain Intensity 2 - Physical Exam General Appearance: no apparent distress, alert, anxiety, thin Eyes, Ears, Nose, Throat Exam: normal ENT inspection, moist mucous membranes Neck Exam: normal inspection, non-tender, supple, full range of motion Cardiovascular/Respiratory Exam: chest non-tender, regular rate/rhythm, heart sounds normal, no respiratory distress Abdominal Exam: non-tender Back Exam: normal inspection, normal range of motion, No CVA tenderness Shoulder Exam: normal inspection, non-tender, no evidence of injury, normal ROM Elbow/Forearm Exam: normal inspection, non-tender, no evidence of injury, normal ROM Wrist Exam: normal inspection, non-tender, no evidence of injury, normal ROM Hand Exam: normal ROM, soft tissue tenderness, swelling (Central 1-1/2 cm transversely oriented eschar. No expressible pus at this moment in time) Neuro/Tendon Exam: normal sensation, normal motor functions, normal tendon functions, responds to pain, no evidence tendon injury Mental Status Exam: alert, oriented x 3, cooperative Skin Exam: other (Cellulitis, swelling and tenderness dorsal aspect left hand) SpO2 Interpretation: normal SpO2: 97 O2 Delivery: Room Air - Course Nursing assessment & vital signs reviewed: Yes EKG Interpreted by Me: RATE (100), Sinus Tach, NORMAL AXIS, NORMAL INTERVALS, NORMAL QRS, Other (No acute ischemic changes on today's twelve-lead EKG. QTc is 431) Ordered Tests: Active Orders 24 hr Category Date Time Status EKG-ER Only STAT Care 05/31/24 23:31 Active IV Insertion STAT Care 05/31/24 23:25 Active UPPER EXTREMITY W/O CONTRAST [CT] Stat Exams 05/31/24 23:33 Completed BLOOD CULTURE Stat Lab 05/31/24 23:42 Received CBC W DIFF Stat Lab 05/31/24 23:42 Completed CMP Stat Lab 05/31/24 23:42 Completed Lactic Acid Stat Lab 06/01/24 00:25 Completed PROCALCITONIN Stat Lab 05/31/24 23:42 Completed Medication Summary Discontinued Medications Generic Name Dose Route Start Last Admin Trade Name Ace PRN Reason Stop Dose Admin Hydromorphone HCl 1 mg 05/31/24 23:31 05/31/24 23:39 Hydromorphone 1 Mg/1ml Inj IV 05/31/24 23:32 1 mg STAT ONE Administration Hydromorphone HCl Confirm 05/31/24 23:35 Hydromorphone 1 Mg/1ml Inj Administered 05/31/24 23:36 Dose 1 mg .ROUTE .STK-MED ONE Sodium Chloride 1,000 mls @ 999 mls/hr 05/31/24 23:31 06/01/24 00:41 Sodium Chloride 0.9% 1000 Ml IV 06/01/24 00:31 Infused .Q1H1M STA Infusion Sodium Chloride Confirm 05/31/24 23:36 Sodium Chloride 0.9% 1000 Ml Administered 05/31/24 23:37 Dose 1,000 mls @ ud .ROUTE .STK-MED ONE Sodium Chloride 500 mls @ 999 mls/hr 06/01/24 01:07 06/01/24 01:10 Sodium Chloride 0.9% 500 Ml IV 06/01/24 01:37 999 mls/hr .Q31M ONE Administration Sodium Chloride Confirm 06/01/24 01:09 Sodium Chloride 0.9% 500 Ml Administered 06/01/24 01:10 Dose 500 mls @ ud IV .STK-MED ONE Ondansetron HCl 4 mg 05/31/24 23:32 05/31/24 23:39 Ondansetron Hcl 4 Mg/2 Ml Vial IV 05/31/24 23:33 4 mg STAT ONE Administration Ondansetron HCl Confirm 05/31/24 23:35 Ondansetron Hcl 4 Mg/2 Ml Vial Administered 05/31/24 23:36 Dose 4 mg .ROUTE .STK-MED ONE Lab/Rad Data: Laboratory Result Diagrams 05/31/24 23:42 05/31/24 23:42 Laboratory Results 06/01/24 05/31/24 05/31/24 Range/Units 00:25 23:42 23:42 WBC (4.23-9.07) x10^3/uL RBC (4.63-6.08) x10^6/uL Hgb (13.7-17.5) g/dL Hct (40.1-51.0) % MCV (79.0-92.2) fL MCH (25.7-32.2) pg MCHC (32.3-36.5) g/dL RDW (11.6-14.4) % Plt Count (163-337) x10^3/uL MPV (9.4-12.4) fL Gran % (34.0-67.9) % Immature Gran % (Auto) (0.001-0.429) % Nucleat RBC Rel Count (0.00-0.2) % Eos # (Auto) (0.04-0.54) x10^3/uL Immature Gran # (Auto) (0.001-0.031) x10^3u/L Absolute Lymphs (auto) (1.32-3.57) x10^3/uL Absolute Monos (auto) (0.30-0.82) x10^3/uL Absolute Nucleated RBC (0.00-0.012) x10^3u/L Lymphocytes % (21.8-53.1) % Monocytes % (5.3-12.2) % Eosinophils % (0.8-7.0) % Basophils % (0.2-1.2) % Absolute Granulocytes (1.78-5.38) x10^3/uL Basophils # (0.01-0.08) x10^3/uL Sodium 134 L (135-145) mmol/L Potassium 4.0 (3.5-5.1) mmol/L Chloride 98 (98-107) mmol/L Carbon Dioxide 21 L (22-30) mmol/L Anion Gap 19.5 H (5-15) MEQ/L BUN 8 L (9-20) mg/dL Creatinine 1.05 (0.66-1.25) mg/dL Estimated GFR 79.3 ML/MIN Glucose 122 H (74-106) mg/dL Lactic Acid 1.7 (0.4-2.0) Calcium 9.2 (8.4-10.2) mg/dL Total Bilirubin 0.40 (0.2-1.3) mg/dL AST 36 (17-59) U/L ALT 23 (0-50) U/L Alkaline Phosphatase 81 (38-126) U/L Serum Total Protein 7.3 (6.3-8.2) g/dL Albumin 4.6 (3.5-5.0) g/dL Procalcitonin 0.043 (0.030-0.080) ng/mL 05/31/24 Range/Units 23:42 WBC 7.2 (4.23-9.07) x10^3/uL RBC 4.97 (4.63-6.08) x10^6/uL Hgb 14.9 (13.7-17.5) g/dL Hct 44.4 (40.1-51.0) % MCV 89.3 (79.0-92.2) fL MCH 30.0 (25.7-32.2) pg MCHC 33.6 (32.3-36.5) g/dL RDW 12.8 (11.6-14.4) % Plt Count 399 H (163-337) x10^3/uL MPV 9.7 (9.4-12.4) fL Gran % 63.6 (34.0-67.9) % Immature Gran % (Auto) 0.3 (0.001-0.429) % Nucleat RBC Rel Count 0.0 (0.00-0.2) % Eos # (Auto) 0.23 (0.04-0.54) x10^3/uL Immature Gran # (Auto) 0.02 (0.001-0.031) x10^3u/L Absolute Lymphs (auto) 1.49 (1.32-3.57) x10^3/uL Absolute Monos (auto) 0.83 H (0.30-0.82) x10^3/uL Absolute Nucleated RBC 0.00 (0.00-0.012) x10^3u/L Lymphocytes % 20.6 L (21.8-53.1) % Monocytes % 11.5 (5.3-12.2) % Eosinophils % 3.2 (0.8-7.0) % Basophils % 0.8 (0.2-1.2) % Absolute Granulocytes 4.61 (1.78-5.38) x10^3/uL Basophils # 0.06 (0.01-0.08) x10^3/uL Sodium (135-145) mmol/L Potassium (3.5-5.1) mmol/L Chloride (98-107) mmol/L Carbon Dioxide (22-30) mmol/L Anion Gap (5-15) MEQ/L BUN (9-20) mg/dL Creatinine (0.66-1.25) mg/dL Estimated GFR ML/MIN Glucose (74-106) mg/dL Lactic Acid (0.4-2.0) Calcium (8.4-10.2) mg/dL Total Bilirubin (0.2-1.3) mg/dL AST (17-59) U/L ALT (0-50) U/L Alkaline Phosphatase (38-126) U/L Serum Total Protein (6.3-8.2) g/dL Albumin (3.5-5.0) g/dL Procalcitonin (0.030-0.080) ng/mL - Progress Progress: improved, pain not gone completely, re-examined Progress Note: 05/31/24 23:40 My medical decision making of the assignment of moderate to high complexity of this patient's medical issue today is based on review of the patient's past medical history, review of the patient's medication list, reviewed patient drug allergy list, history present illness and physical findings on examination. The workup in this patient includes IV line placement, infusion of normal saline solution, infusion of Zofran, infusion of Dilaudid, CBC, CMP, lactic acid level, procalcitonin, CT scan of the left hand. Differential diagnosis includes but is not limited to failure of outpatient therapy with cellulitis, subcutaneous abscess 06/01/24 01:50 I interpreted the patient's laboratory data results. Based on the laboratory data results, there is no acute, emergent medical issue. The CT scan of the left hand without contrast was interpreted by the radiologist and compared to similar study dated 05/18/2024. The radiologist impression is, compared to similar study dated 05/18/2024 there is mildly progression of diffuse soft tissues swelling left wrist and hand predominantly dorsal aspect with edematous fat stranding and fluid collection. There is a few calcific densities along the dorsal aspect of the left hand. No air focus present. Possible flexor or extensor tenosynovitis 06/01/24 01:51 I spoke with our telehospitalist, Dr. Rasheed. I reviewed the patient history, chief complaint, physical findings on examination, workup performed, results of that workup and the results of our intervention for this patient. We will place this patient in observation and provide the patient with intravenous a ntibiotics and pain management. We will consult orthopedic services at 8 AM this morning for consultation and management. Discussed with Dr.: Other (Dr. Rasheed) Counseled pt/family regarding: lab results, diagnosis, need for follow-up, rad results Medical Desision Making - Independent Historian Additional History obtained from: Spouse - External Record(s) Reviewed Records reviewed as a part of evaluation & management: Inpatient - Discussion of managment Care discussed with:: hospitalist Agreed on:: place in obs Will see patient: in hospital - Diagnostic Testing Diagnostic test were ordered, analyzed, and reviewed by me: Yes Radiological Interpretation: Reviewed by me, Teleradiologist Report - Risk of complications The pt has a high risk of morbidity or mortality based on: Decision regarding hospitilization or escalation of hosp level of care - Departure Departure Disposition: Observation Clinical Impression: Tenosynovitis Condition: Stable Critical Care Time: No Referrals: KYLAH SALMON MD [Primary Care Provider] - Follow up/PCP as directed
[2024-05-31] MEDS ORDERED: Zofran 4 MG/2 ML VIAL ONE (23:35)
[2024-05-31] MEDS ORDERED: Hydromorphone 1 mg/ml Injection ONE (23:35)
[2024-05-31] MEDS ORDERED: Sodium Chloride 0.9% 1000 ML 1,000 ML ONE (23:36)
[2024-05-31] MEDS: Hydromorphone 1 mg/ml Injection IV ONE (23:39)
[2024-05-31] MEDS: Zofran 4 MG/2 ML VIAL IV ONE (23:39)
[2024-05-31] MEDS: Sodium Chloride 0.9% 1000 ML 1,000 ML IV STA (23:41)
[2024-05-31 23:45] LABS: Absolute Neutrophil Ct (ANC) 4.61 x10^3/uL (1.78-5.38); BASOPHIL % 0.8 % (0.2-1.2); Basophil (Absolute #) 0.06 x10^3/uL (0.01-0.08); Eosinophil % 3.2 % (0.8-7.0); Eosinophil (Absolute #) 0.23 x10^3/uL (0.04-0.54); Hematocrit 44.4 % (40.1-51.0); Hemoglobin 14.9 g/dL (13.7-17.5); IMMATURE GRAN # 0.02 x10^3u/L (0.001-0.031); IMMATURE GRAN % 0.3 % (0.001-0.429); Lymphocyte (Absolute #) 1.49 x10^3/uL (1.32-3.57); Lymphocytes % 20.6 % (21.8-53.1); Mean Cell Volume 89.3 fL (79.0-92.2); Mean Corpuscular Hgb Concent. 33.6 g/dL (32.3-36.5); Mean Platelet Volume 9.7 fL (9.4-12.4); Monocyte (Absolute #) 0.83 x10^3/uL (0.30-0.82); Monocytes % 11.5 % (5.3-12.2); Neutrophil % 63.6 % (34.0-67.9); Platelet Count 399 x10^3/uL (163-337); Red Blood Count 4.97 x10^6/uL (4.63-6.08); Red Cell Distribution Width 12.8 % (11.6-14.4); White Blood Count 7.2 x10^3/uL (4.23-9.07)
[2024-06-01 00:12] LABS: ALBUMIN 4.6 g/dL (3.5-5.0); ANION GAP 19.5 MEQ/L (5-15); BILIRUBIN,TOTAL 0.4 mg/dL (0.2-1.3); Calcium 9.2 mg/dL (8.4-10.2); Creatinine 1 1.05 mg/dL (0.66-1.25); EST GLOMERULAR FILTRATION RATE 79.3 ML/MIN; Total Protein 7.3 g/dL (6.3-8.2)
--- NOTE | 2024-06-01 00:57 | XRAY ---
CLINICAL HISTORY: Left hand swelling COMPARISON: prior 05/18/2024. TECHNIQUE: CT scan of the left hand was performed without the administration of intravenous contrast. Axial images were obtained, with coronal and sagittal reformatted images reviewed. One of the following dose reduction techniques was utilized for this exam. Automated exposure control, adjustment of the mA and/or kV according to patient size, and use of iterative reconstruction. CDTI: 71.95 mGy. DLP: 1689.65 mGy. cm. FINDINGS: ones: The bony structures are intact with no evidence of acute fracture or dislocation. Joints: Mild intercarpal degenerative changes. Soft Tissues: Diffuse soft tissue swelling involving the left wrist and hand, predominantly along the dorsal aspect with edematous fat stranding and fluid collections. Still noted a few calcific densities are seen along the dorsal aspect of the hand. No air focus seen at present. Additional Findings: Still noted Fluid attenuation around the flexor and extensor tendons, possible tenosynovitis. IMPRESSION: 1. Diffuse soft tissue swelling involving the left wrist and hand, predominantly along the dorsal aspect with edematous fat stranding and fluid collections. (mildly progressed) 2. Redemonstration of a few calcific densities along the dorsal aspect of the hand. No air focus seen at present. 3. Possible flexor and extensor tenosynovitis. 4. MRI is advised if clinically warranted.. Electronically Signed by: Trace Ford MD. (06/01/2024 00:54:20 EDT)
[2024-06-01] MEDS ORDERED: Sodium Chloride 0.9% 500 ML 500 ML IV ONE (01:09)
[2024-06-01] MEDS: Sodium Chloride 0.9% 500 ML 500 ML IV ONE (01:10)
[2024-06-01] MEDS ORDERED: Unasyn 3 GM Vial ONE (02:02)
[2024-06-01] MEDS ORDERED: Sodium Chloride 0.9% 100 ML ONE (02:03)
[2024-06-01] MEDS: Unasyn 3 GM Vial*** 3 G in Sodium Chloride 0.9% 100 ML IV ONE (02:14)
[2024-06-01] MEDS ORDERED: Hydromorphone 1 mg/ml Injection IV PRN ×2 (02:18→07:37)
[2024-06-01] MEDS ORDERED: Zofran 4 MG/2 ML VIAL IV PRN (02:18)
[2024-06-01] MEDS: Sodium Chloride 0.9% 1000 ML 1,000 ML IV SCH (03:29)
--- NOTE | 2024-06-01 03:29 | PCM.HP ---
History of Present Illness - Chief Complaint Chief Complaint: Tenosynovitis Date: 06/01/24 History of Present Illness: Mr. BUTCHER is a 63 year old male with a past medical history as noted below who developed a crush injury onto his left hand when he fell over while carrying something and landed with his full body weight onto his hand with an embedded piece of metal. He was seen by surgery, started on antibiotics with initial improvement, so he was discharged home on oral antibiotics. He was doing well but has noticed increasing swelling, redness and a stinging sensation in his hand and wrist, so he came to the ER. He was started on IV antibiotics and recommended for admission. He is seen via telehealth where he is awake/alert. No fever/chills. No chest pain or shortness of breath. No nausea, vomiting or diarrhea. No dysuria, hematuria or urgency. - Review of Systems Constitutional: No Fever, No Chills Eyes: No Vision Changes Ears, Nose, & Throat: No Sinus Drainage Respiratory: No Orthopnea, No Short Of Breath Cardiac: No Chest Pain, No Edema, No Palpitations Abdominal/Gastrointestinal: No Abdominal Pain, No Nausea, No Vomiting Genitourinary Symptoms: No Dysuria, No Frequency, No Hematuria Musculoskeletal: No Arthralgias, No Back Pain Skin: Cellulitis, Rash Neurological: Sensory Changes, No Focal Weakness Psychological: No Suicidal Ideations Endocrine: No Polyuria Hematologic/Lymphatic: No Blood Clots Medications & Allergies Home Medications: Home Medication List Tamsulosin HCl 0.4 mg [Flomax 0.4 MG] 0.4 mg PO QHS 09/20/16 [History Confirmed 05/31/24] Pravastatin Sodium [Pravachol] 10 mg PO HS 08/14/18 [History Confirmed 05/31/24] Carisoprodol 350 mg [Soma 350 mg] 350 mg PO QID PRN 05/19/24 [History Confirmed 05/31/24] Hydrocodone/Acetaminophen [[place] 10-325 mg] 10 mg PO QID PRN 05/19/24 [History Confirmed 05/31/24] Polyethylene Glycol 3350 17 gm [Miralax Powder 17GM PACKET] 1 packet PO DAILY PRN PRN 05/19/24 [History Confirmed 05/31/24] Celecoxib 100 mg [celeBREX 100 MG] 200 mg PO DAILY 05/20/24 [History Confirmed 05/31/24] Lactobacillus Acidophilus/Fos [Acidophilus Probiotic Tablet] 1 each PO DAILY 30 Days #30 tablet 05/21/24 [Rx Confirmed 05/31/24] Cephalexin Mh 500 mg [Keflex 500 mg] 1 tab PO QID 05/31/24 [History Confirme d 05/31/24] Sulfamethoxazole/Trimethoprim [Bactrim Ds Tablet] 1 each PO BID 05/31/24 [History Confirmed 05/31/24] Allergies/Adverse Reactions: Allergies Allergy/AdvReac Type Severity Reaction Status Date / Time gabapentin Allergy Severe Tightness Verified 05/31/24 23:16 of Throat morphine Allergy Severe Rapid Verified 05/31/24 23:16 Heart Beat iodine Allergy Verified 05/31/24 23:16 - Past Medical History Past Medical History: Yes Neurological History: No Pertinent History ENT History: No Pertinent History Cardiac History: High Cholesterol, Hypertension Respiratory History: Asthma Endocrine Medical History: No Pertinent History Musculoskelatal History: Degenerative Disk Disease, Fractures GI Medical History: Ulcer History: Other Pyscho-Social History: No Pertinent History Male Reproductive Disorders: Prostate Problems Comment: Rib fractures - Past Surgical History Past Surgical History: Yes Neuro Surgical History: No Pertinent History Cardiac History: No Pertinent History Respiratory Surgery: No Pertinent History GI Surgical History: Appendectomy Genitourinary Surgical Hx: No Pertinent History Musculskeletal Surgical Hx: Orthopedic Surgery Male Surgical History: No Pertinent History Other Surgical History: 20+ orthopedic surgeries following fall while on the job, HX FX LEFT HEEL (ORIF WITH METAL PLATE), FX SHOULDER AND ROTATOR CUFF REPAIR, Back surgeries including a spinal fusion, BILATERAL CARPAL TUNNEL RELEASES AND SURGERY TO REATTACH WRIST EXTENSORS ON LEFT. - Social History Smoking Status: Former smoker How long have you smoked: 5 Exposure to second hand smoke: No Alcohol: None Drug Use: none - Social Determinants of Health Will the patient participate in the screening: Yes Do you worry about a steady place to live?: No Do you have any problems with any of the following?: No known problems In the past 12 months,have you had to go without utilities?: No Have you or anyone in your house had to go without enough: No Transportation Issues: No Has anyone in your support network made you feel unsafe?: No Does the patient want assistance with any of the above?: No - Physical Exam Vital Signs: Vital Signs - 24 hr Temp Pulse Resp BP BP Pulse Ox 06/01/24 02:09 97 06/01/24 02:00 99 H 19 140/93 96 06/01/24 01:30 90 14 133/75 97 06/01/24 01:00 87 14 132/89 98 06/01/24 00:30 91 H 9 L 128/101 98 06/01/24 00:00 95 H 14 143/83 93 L 05/31/24 23:50 97 H 17 135/88 94 L 05/31/24 23:07 98.5 F 104 H 18 148/99 97 General Appearance: mild distress Neurologic Exam: alert, oriented x 3, cooperative Ears, Nose, Throat Exam: dry mucous membranes Neck Exam: supple Respiratory Exam: No respiratory distress Cardiovascular Exam: regular rate/rhythm Gastrointestinal/Abdomen Exam: soft Extremity Exam: swelling, tenderness Skin Exam: No rash Results - Labs Lab/Micro Results: Lab Results-Last 24 Hours 05/31/24 05/31/24 05/31/24 Range/Units 23:42 23:42 23:42 WBC 7.2 (4.23-9.07) x10^3/uL RBC 4.97 (4.63-6.08) x10^6/uL Hgb 14.9 (13.7-17.5) g/dL Hct 44.4 (40.1-51.0) % MCV 89.3 (79.0-92.2) fL MCH 30.0 (25.7-32.2) pg MCHC 33.6 (32.3-36.5) g/dL RDW 12.8 (11.6-14.4) % Plt Count 399 H (163-337) x10^3/uL MPV 9.7 (9.4-12.4) fL Gran % 63.6 (34.0-67.9) % Immature Gran % (Auto) 0.3 (0.001-0.429) % Nucleat RBC Rel Count 0.0 (0.00-0.2) % Eos # (Auto) 0.23 (0.04-0.54) x10^3/uL Immature Gran # (Auto) 0.02 (0.001-0.031) x10^3u/L Absolute Lymphs (auto) 1.49 (1.32-3.57) x10^3/uL Absolute Monos (auto) 0.83 H (0.30-0.82) x10^3/uL Absolute Nucleated RBC 0.00 (0.00-0.012) x10^3u/L Lymphocytes % 20.6 L (21.8-53.1) % Monocytes % 11.5 (5.3-12.2) % Eosinophils % 3.2 (0.8-7.0) % Basophils % 0.8 (0.2-1.2) % Absolute Granulocytes 4.61 (1.78-5.38) x10^3/uL Basophils # 0.06 (0.01-0.08) x10^3/uL Sodium 134 L (135-145) mmol/L Potassium 4.0 (3.5-5.1) mmol/L Chloride 98 (98-107) mmol/L Carbon Dioxide 21 L (22-30) mmol/L Anion Gap 19.5 H (5-15) MEQ/L BUN 8 L (9-20) mg/dL Creatinine 1.05 (0.66-1.25) mg/dL Estimated GFR 79.3 ML/MIN Glucose 122 H (74-106) mg/dL Lactic Acid (0.4-2.0) Calcium 9.2 (8.4-10.2) mg/dL Total Bilirubin 0.40 (0.2-1.3) mg/dL AST 36 (17-59) U/L ALT 23 (0-50) U/L Alkaline Phosphatase 81 (38-126) U/L Serum Total Protein 7.3 (6.3-8.2) g/dL Albumin 4.6 (3.5-5.0) g/dL Procalcitonin 0.043 (0.030-0.080) ng/mL 06/01/24 Range/Units 00:25 WBC (4.23-9.07) x10^3/uL RBC (4.63-6.08) x10^6/uL Hgb (13.7-17.5) g/dL Hct (40.1-51.0) % MCV (79.0-92.2) fL MCH (25.7-32.2) pg MCHC (32.3-36.5) g/dL RDW (11.6-14.4) % Plt Count (163-337) x10^3/uL MPV (9.4-12.4) fL Gran % (34.0-67.9) % Immature Gran % (Auto) (0.001-0.429) % Nucleat RBC Rel Count (0.00-0.2) % Eos # (Auto) (0.04-0.54) x10^3/uL Immature Gran # (Auto) (0.001-0.031) x10^3u/L Absolute Lymphs (auto) (1.32-3.57) x10^3/uL Absolute Monos (auto) (0.30-0.82) x10^3/uL Absolute Nucleated RBC (0.00-0.012) x10^3u/L Lymphocytes % (21.8-53.1) % Monocytes % (5.3-12.2) % Eosinophils % (0.8-7.0) % Basophils % (0.2-1.2) % Absolute Granulocytes (1.78-5.38) x10^3/uL Basophils # (0.01-0.08) x10^3/uL Sodium (135-145) mmol/L Potassium (3.5-5.1) mmol/L Chloride (98-107) mmol/L Carbon Dioxide (22-30) mmol/L Anion Gap (5-15) MEQ/L BUN (9-20) mg/dL Creatinine (0.66-1.25) mg/dL Estimated GFR ML/MIN Glucose (74-106) mg/dL Lactic Acid 1.7 (0.4-2.0) Calcium (8.4-10.2) mg/dL Total Bilirubin (0.2-1.3) mg/dL AST (17-59) U/L ALT (0-50) U/L Alkaline Phosphatase (38-126) U/L Serum Total Protein (6.3-8.2) g/dL Albumin (3.5-5.0) g/dL Procalcitonin (0.030-0.080) ng/mL - Radiology Impressions Radiology Exams & Impressions: Radiology Procedures Category Date Time Status UPPER EXTREMITY W/O CONTRAST [CT] Stat Exams 05/31/24 23:33 Completed Assessment/Plan (1) Tenosynovitis Current Visit: Yes Status: Acute Assessment & Plan: Inflammation versus cellulitis L hand despite oral antibiotics 1. Admit to hospital 2. IV antibiotics 3. Elevate hand 4. Ortho consult 5. Pain control 6. DVT/GI prophylaxis Code(s): M65.90 - UNSPECIFIED SYNOVITIS AND TENOSYNOVITIS, UNSPECIFIED SITE (2) Foreign body hand Current Visit: No Status: Acute Qualifiers: Laterality: left Assessment & Plan: After crush injury, being followed by ortho 1. Continue antibiotics 2. Need for surgery? Code(s): S60.559A - SUPERFICIAL FOREIGN BODY OF UNSPECIFIED HAND, INIT ENCNTR (3) HTN (hypertension) Current Visit: No Status: Chronic Qualifiers: Hypertension type: primary hypertension Qualified Code(s): I10 - Essential (primary) hypertension Assessment & Plan: Stable, but exacerbated by pain 1. Continue bp meds 2. Low Na diet 3. Monitor blood pressure readings Code(s): I10 - ESSENTIAL (PRIMARY) HYPERTENSION (4) Hyponatremia Current Visit: Yes Status: Acute Assessment & Plan: Likely from mild hypovolemia 1. Trial of NS IVFs 2. Check urine lytes, urine osmo 3. Monitor electrolytes closely Code(s): E87.1 - HYPO-OSMOLALITY AND HYPONATREMIA Telemedicine Encounter - Telemedicine Encounter Telemedicine Encounter: "The entirety of this encounter was performed via Telemedicine" This visit was performed using real-time audio and video connection between my location and thepatients locationwith the assistance of a surrogateat the patients location. Written or verbal consent was obtained from the patient/guardian to perform this visit [email or web address]. Any patient questions regarding the telemedicine interaction were answered.
[2024-06-01] MEDS: Unasyn 1.5GM Vial*** 1.5 G in Sodium Chloride 100ML MINI-BAG PLUS 100 ML IV SCH (03:34)
[2024-06-01] MEDS ORDERED: NORCO 5/325 MG PO PRN (03:35)
[2024-06-01] MEDS: TYLENOL 325 MG PO PRN (03:44)
[2024-06-01] MEDS: TORAdol 30 mg Injection IV PRN (03:45)
[2024-06-01 06:04] LABS: Absolute Neutrophil Ct (ANC) 4.69 x10^3/uL (1.78-5.38); BASOPHIL % 0.8 % (0.2-1.2); Basophil (Absolute #) 0.06 x10^3/uL (0.01-0.08); Eosinophil % 3.9 % (0.8-7.0); Eosinophil (Absolute #) 0.29 x10^3/uL (0.04-0.54); Hematocrit 43.9 % (40.1-51.0); Hemoglobin 14.5 g/dL (13.7-17.5); IMMATURE GRAN # 0.03 x10^3u/L (0.001-0.031); IMMATURE GRAN % 0.4 % (0.001-0.429); Lymphocyte (Absolute #) 1.43 x10^3/uL (1.32-3.57); Lymphocytes % 19.4 % (21.8-53.1); Mean Cell Volume 90.9 fL (79.0-92.2); Monocyte (Absolute #) 0.89 x10^3/uL (0.30-0.82); Neutrophil % 63.5 % (34.0-67.9); Platelet Count 403 x10^3/uL (163-337); Red Blood Count 4.83 x10^6/uL (4.63-6.08); White Blood Count 7.4 x10^3/uL (4.23-9.07)
[2024-06-01 06:23] LABS: ALBUMIN 4.3 g/dL (3.5-5.0); BILIRUBIN,TOTAL 0.5 mg/dL (0.2-1.3); Creatinine 1 0.98 mg/dL (0.66-1.25); EST GLOMERULAR FILTRATION RATE 86.1 ML/MIN; Potassium 4.2 mmol/L (3.5-5.1)
[2024-06-01] MEDS: BENADRYL 25 MG CAPSULE PO ONE (09:08)
[2024-06-01] MEDS: VANCOCIN 500 MG VIAL*** 500 MG in Sodium Chloride 100ML MINI-BAG PLUS 100 ML IV ONE (09:08)
[2024-06-01] MEDS: PHARMACY DOSING REQUIRED: VANCOMYCIN IV STA (09:09)
--- NOTE | 2024-06-01 09:14 | PCM.CONS ---
History of Present Illness - Consult Date of Consultation Date: 06/01/24 Reason for Consult: Left hand pain and swelling Consulting Provider: DEANNA BETH MD - [facility] History of Present Illness: is a 63 year old male. Mr. Son came into the emergency room last night because of increased redness pain and swelling in his left hand. We have been following him in the clinic for this problem. His original injury was May 16. He was seen in the emergency room that day After a crush injury and had a 1 cm dorsal laceration on his hand. An x-ray at that time showed a punctate less than 1 mm size metallic foreign body in the soft tissue. He was seen in clinic the following day and had no evidence of infection redness or swelling. We opted to treat him conservatively with antibiotics. He had a flareup of redness and swelling and was admitted on May 19. He was treated with IV antibiotics for several days and discharged on MayMay 21 with significant improvement. He was discharged on an oral antibiotic. We saw him in clinic for follow-up and obtained a repeat sed rate which showed improvement from 44 down to approximately 31. During a subsequent office visit we ordered another sed rate which had risen back to 44. We clinically he was still doing reasonably well so we changed his oral antibiotic and chose to observe him. We discussed removing the foreign body and brought him into the clinic May 30 and used the C arm to visualize the foreign body. We went to make sure that we could actually see the foreign body on C arm if we were to take him the surgery. He was told to call if symptoms worsen but at the time he was seeing continued improvement on the new antibiotics which included Keflex and Bactrim. After seeing him on he apparently woke up Monday morning with increased symptoms and finally came into the hospital Monday night. He was then admitted by the hospitalist service overnight and is seen today and has increased pain redness swelling left hand. Medications & Allergies Home Medications: Home Medication List Tamsulosin HCl 0.4 mg [Flomax 0.4 MG] 0.4 mg PO QHS 09/20/16 [History Confirmed 05/31/24] Pravastatin Sodium [Pravachol] 10 mg PO HS 08/14/18 [History Confirmed 05/31/24] Carisoprodol 350 mg [Soma 350 mg] 350 mg PO QID PRN 05/19/24 [History Confirmed 05/31/24] Hydrocodone/Acetaminophen [[place] 10-325 mg] 10 mg PO QID PRN 05/19/24 [History Confirmed 05/31/24] Polyethylene Glycol 3350 17 gm [Miralax Powder 17GM PACKET] 1 packet PO DAILY PRN PRN 05/19/24 [History Confirmed 05/31/24] Celecoxib 100 mg [celeBREX 100 MG] 200 mg PO DAILY 05/20/24 [History Confirmed 05/31/24] Lactobacillus Acidophilus/Fos [Acidophilus Probiotic Tablet] 1 each PO DAILY 30 Days #30 tablet 05/21/24 [Rx Confirmed 05/31/24] Cephalexin Mh 500 mg [Keflex 500 mg] 1 tab PO QID 05/31/24 [History Confirmed 05/31/24] Sulfamethoxazole/Trimethoprim [Bactrim Ds Tablet] 1 each PO BID 05/31/24 [History Confirmed 05/31/24] Allergies/Adverse Reactions: Allergies Allergy/AdvReac Type Severity Reaction Status Date / Time gabapentin Allergy Severe Tightness Verified 05/31/24 23:16 of Throat morphine Allergy Severe Rapid Verified 05/31/24 23:16 Heart Beat iodine Allergy Verified 05/31/24 23:16 - Past Medical History Past Medical History: Yes Neurological History: No Pertinent History ENT History: No Pertinent History Cardiac History: High Cholesterol, Hypertension Respiratory History: Asthma Endocrine Medical History: No Pertinent History Musculoskelatal History: Degenerative Disk Disease, Fractures GI Medical History: Ulcer History: Other Pyscho-Social History: No Pertinent History Male Reproductive Disorders: Prostate Problems Comment: Rib fractures - Past Surgical History Past Surgical History: Yes Neuro Surgical History: No Pertinent History Cardiac History: No Pertinent History Respiratory Surgery: No Pertinent History GI Surgical History: Appendectomy Genitourinary Surgical Hx: No Pertinent History Musculskeletal Surgical Hx: Orthopedic Surgery Male Surgical History: No Pertinent History Other Surgical History: 20+ orthopedic surgeries following fall while on the job, HX FX LEFT HEEL (ORIF WITH METAL PLATE), FX SHOULDER AND ROTATOR CUFF REPAIR, Back surgeries including a spinal fusion, BILATERAL CARPAL TUNNEL RELEASES AND SURGERY TO REATTACH WRIST EXTENSORS ON LEFT. - Social History Smoking Status: Former smoker How long have you smoked: 5 Exposure to second hand smoke: No Alcohol: None Drug Use: none - Social Determinants of Health Will the patient participate in the screening: Yes Do you worry about a steady place to live?: No Do you have any problems with any of the following?: No known problems In the past 12 months,have you had to go without utilities?: No Have you or anyone in your house had to go without enough: No Transportation Issues: No Has anyone in your support network made you feel unsafe?: No Does the patient want assistance with any of the above?: No - Nursing Vital Signs Nursing Vital Signs: Vital Signs - 24 hr Temp Pulse Resp BP BP Pulse Ox 06/01/24 08:58 98.3 F 91 H 17 128/74 96 06/01/24 07:16 98.3 F 91 H 17 128/74 96 06/01/24 02:57 97.7 F 99 H 16 146/81 96 06/01/24 02:09 97 06/01/24 02:00 99 H 19 140/93 96 06/01/24 01:30 90 14 133/75 97 06/01/24 01:00 87 14 132/89 98 06/01/24 00:30 91 H 9 L 128/101 98 06/01/24 00:00 95 H 14 143/83 93 L 05/31/24 23:50 97 H 17 135/88 94 L 05/31/24 23:07 98.5 F 104 H 18 148/99 97 - Physical Exam General Appearance: no apparent distress Eyes, Ears, Nose, Throat Exam: normal ENT inspection Neck Exam: normal inspection Mental Status Exam: alert Skin Exam: other (Redness noted on patient's chest, he claims that this is normal for him. The dorsal left hand is reddened as well, otherwise skin color is normal.) SpO2: 96 - Upper Extremity Hand Exam: limited ROM, soft tissue tenderness, stiffness, swelling (Left hand exam reveals dorsal redness swelling and tenderness. Slightly increased from 48 hours ago. His original wound is scabbed over without active drainage. His fingers have minimal swelling but subjectively he has diminished motion and increased pain when he tries to move them. He has no pa) - Narrative Narrative Physical Exam: Ortho Physical Exam Assessment/Plan (1) Cellulitis Current Visit: Yes Status: Acute Assessment & Plan: Recommend that we take the patient to surgery to explore this wound to remove the foreign body. The cellulitis has continued to similar for approximately 2 weeks now, it has been improved with antibiotics but not eradicated, after seeing him 48 hours ago symptoms flared back up which necessitates exploration and removal of the foreign body. I have discussed this with the patient who is in agreement. Will proceed with surgical management as discussed. Code(s): L03.90 - CELLULITIS, UNSPECIFIED (2) Foreign body hand Current Visit: Yes Status: Acute Qualifiers: Laterality: left Code(s): S60.559A - SUPERFICIAL FOREIGN BODY OF UNSPECIFIED HAND, INIT ENCNTR Results - Labs Lab/Micro Results: Lab Results-Last 24 Hours 05/31/24 05/31/24 05/31/24 Range/Units 23:42 23:42 23:42 WBC 7.2 (4.23-9.07) x10^3/uL RBC 4.97 (4.63-6.08) x10^6/uL Hgb 14.9 (13.7-17.5) g/dL Hct 44.4 (40.1-51.0) % MCV 89.3 (79.0-92.2) fL MCH 30.0 (25.7-32.2) pg MCHC 33.6 (32.3-36.5) g/dL RDW 12.8 (11.6-14.4) % Plt Count 399 H (163-337) x10^3/uL MPV 9.7 (9.4-12.4) fL Gran % 63.6 (34.0-67.9) % Immature Gran % (Auto) 0.3 (0.001-0.429) % Nucleat RBC Rel Count 0.0 (0.00-0.2) % Eos # (Auto) 0.23 (0.04-0.54) x10^3/uL Immature Gran # (Auto) 0.02 (0.001-0.031) x10^3u/L Absolute Lymphs (auto) 1.49 (1.32-3.57) x10^3/uL Absolute Monos (auto) 0.83 H (0.30-0.82) x10^3/uL Absolute Nucleated RBC 0.00 (0.00-0.012) x10^3u/L Lymphocytes % 20.6 L (21.8-53.1) % Monocytes % 11.5 (5.3-12.2) % Eosinophils % 3.2 (0.8-7.0) % Basophils % 0.8 (0.2-1.2) % Absolute Granulocytes 4.61 (1.78-5.38) x10^3/uL Basophils # 0.06 (0.01-0.08) x10^3/uL Sodium 134 L (135-145) mmol/L Potassium 4.0 (3.5-5.1) mmol/L Chloride 98 (98-107) mmol/L Carbon Dioxide 21 L (22-30) mmol/L Anion Gap 19.5 H (5-15) MEQ/L BUN 8 L (9-20) mg/dL Creatinine 1.05 (0.66-1.25) mg/dL Estimated GFR 79.3 ML/MIN Glucose 122 H (74-106) mg/dL Lactic Acid (0.4-2.0) Calcium 9.2 (8.4-10.2) mg/dL Total Bilirubin 0.40 (0.2-1.3) mg/dL AST 36 (17-59) U/L ALT 23 (0-50) U/L Alkaline Phosphatase 81 (38-126) U/L Serum Total Protein 7.3 (6.3-8.2) g/dL Albumin 4.6 (3.5-5.0) g/dL Procalcitonin 0.043 (0.030-0.080) ng/mL 06/01/24 06/01/24 06/01/24 Range/Units 00:25 05:23 05:23 WBC 7.4 (4.23-9.07) x10^3/uL RBC 4.83 (4.63-6.08) x10^6/uL Hgb 14.5 (13.7-17.5) g/dL Hct 43.9 (40.1-51.0) % MCV 90.9 (79.0-92.2) fL MCH 30.0 (25.7-32.2) pg MCHC 33.0 (32.3-36.5) g/dL RDW 13.0 (11.6-14.4) % Plt Count 403 H (163-337) x10^3/uL MPV 10.0 (9.4-12.4) fL Gran % 63.5 (34.0-67.9) % Immature Gran % (Auto) 0.4 (0.001-0.429) % Nucleat RBC Rel Count 0.0 (0.00-0.2) % Eos # (Auto) 0.29 (0.04-0.54) x10^3/uL Immature Gran # (Auto) 0.03 (0.001-0.031) x10^3u/L Absolute Lymphs (auto) 1.43 (1.32-3.57) x10^3/uL Absolute Monos (auto) 0.89 H (0.30-0.82) x10^3/uL Absolute Nucleated RBC 0.00 (0.00-0.012) x10^3u/L Lymphocytes % 19.4 L (21.8-53.1) % Monocytes % 12.0 (5.3-12.2) % Eosinophils % 3.9 (0.8-7.0) % Basophils % 0.8 (0.2-1.2) % Absolute Granulocytes 4.69 (1.78-5.38) x10^3/uL Basophils # 0.06 (0.01-0.08) x10^3/uL Sodium 135 (135-145) mmol/L Potassium 4.2 (3.5-5.1) mmol/L Chloride 101 (98-107) mmol/L Carbon Dioxide 23 (22-30) mmol/L Anion Gap 16.0 H (5-15) MEQ/L BUN 6 L (9-20) mg/dL Creatinine 0.98 (0.66-1.25) mg/dL Estimated GFR 86.1 ML/MIN Glucose 91 (74-106) mg/dL Lactic Acid 1.7 (0.4-2.0) Calcium 9.0 (8.4-10.2) mg/dL Total Bilirubin 0.50 (0.2-1.3) mg/dL AST 33 (17-59) U/L ALT 19 (0-50) U/L Alkaline Phosphatase 85 (38-126) U/L Serum Total Protein 7.0 (6.3-8.2) g/dL Albumin 4.3 (3.5-5.0) g/dL Procalcitonin (0.030-0.080) ng/mL - Radiology Impressions Radiology Exams & Impressions: Radiology Procedures Category Date Time Status FLUOROSCOPY UP TO 1 HR Routine Exams 06/01/24 08:57 Ordered HAND (MINIMUM 3 VIEWS) Routine Exams 06/01/24 08:57 Ordered UPPER EXTREMITY W/O CONTRAST [CT] Stat Exams 05/31/24 23:33 Completed
[2024-06-01] MEDS: VANCOCIN INJECTION*** 1 GM in Sodium Chloride 0.9% 250 ML 250 ML IV ONE (09:28)
[2024-06-01] MEDS ORDERED: VANCOMYCIN 1 GRAM/200 ML BAG 1 GM/200 ML PIGGYBACK IV ONE (09:30)
[2024-06-01] MEDS ORDERED: Unasyn 1.5GM Vial*** 1.5 G in Sodium Chloride 0.9% 100 ML IV SCH (10:00)
[2024-06-01] MEDS ORDERED: Versed 2 MG/2 ML Injection ONE (10:09)
[2024-06-01] MEDS ORDERED: SUBLIMAZE 100 MCG/2 ML ONE (10:09)
[2024-06-01] MEDS ORDERED: DEXMEDETOMIDINE 80 MCG/20ML-NS IV ONE (10:10)
[2024-06-01] MEDS ORDERED: dexAMETHasone sodium phosphate ONE (10:10)
[2024-06-01] MEDS ORDERED: Zofran 4 MG/2 ML VIAL ONE ×2 (10:10→12:29)
[2024-06-01] MEDS ORDERED: propofoL IV ONE ×2 (10:10→11:30)
[2024-06-01] MEDS ORDERED: TORAdol 30 mg Injection ONE (10:10)
[2024-06-01] MEDS ORDERED: Xylocaine-Mpf 2% 5 Ml Vial ONE (10:10)
[2024-06-01] MEDS ORDERED: Quelicin Fliptop 200 MG/10 ML ONE (10:29)
[2024-06-01] MEDS ORDERED: ROBINUL ONE (10:56)
[2024-06-01] MEDS ORDERED: Ephedrine Sulfate 50 MG/ML ONE (11:00)
[2024-06-01] MEDS ORDERED: EXPAREL 133 MG/10 ML VIAL IJ ONE (11:11)
[2024-06-01] MEDS ORDERED: Marcaine Mpf 0.5% Vial 30 Ml ONE (11:11)
[2024-06-01] MEDS: HEPARIN 5000 UNITS/0.5 ML (HIGH RISK MED) SQ SCH (12:51)
[2024-06-01] MEDS: PIPERACILLIN/TAZOBACTAM 4.5 GM in Sodium Chloride 100ML MINI-BAG PLUS 100 ML IV SCH (13:00)
[2024-06-01] MEDS: PERCOCET TABLET 5/325MG PO PRN (13:12)
[2024-06-01] MEDS: Protonix 20MG Tablet PO SCH (13:12)
[2024-06-01] MEDS: Cymbalta 30 MG Capsule PO SCH (13:12)
[2024-06-01] MEDS: Naprosyn 500 MG PO SCH (14:22)
[2024-06-01] MEDS ORDERED: Miralax Powder 17GM PACKET PO PRN (17:09)
--- NOTE | 2024-06-01 21:32 | XRAY ---
20 seconds of fluoroscopy were used in surgery for a foreign body removal of the left hand.
--- NOTE | 2024-06-01 21:34 | XRAY ---
Indication: Foreign body removal left hand. Intraoperative fluoroscopy provided for 20 seconds. 2 digital spot images and single frontal view left hand submitted for interpretation demonstrates successful removal of 2 punctate foreign bodies between 2nd and 3rd metacarpals. Correlate with intraoperative findings/report.
[2024-06-01] MEDS ORDERED: PERCOCET TABLET 5/325MG ONE (21:43)
[2024-06-01] MEDS: Flomax 0.4 MG PO SCH (21:49)
[2024-06-01] MEDS: SOMA 350 MG PO SCH (21:49)
[2024-06-01] MEDS: VANCOMYCIN 1 GRAM/200 ML BAG 1 GM/200 ML PIGGYBACK IV SCH (21:53)
[2024-06-01] MEDS ORDERED: PRAVASTATIN SODIUM 10 MG PO SCH (22:00)
[2024-06-02 06:10] LABS: Hemoglobin 13.8 g/dL (13.7-17.5); Mean Cell Volume 91.9 fL (79.0-92.2); Mean Corpuscular Hemoglobin 30.2 pg (25.7-32.2); Mean Corpuscular Hgb Concent. 32.9 g/dL (32.3-36.5); Platelet Count 393 x10^3/uL (163-337); Red Blood Count 4.57 x10^6/uL (4.63-6.08); White Blood Count 11.5 x10^3/uL (4.23-9.07)
[2024-06-02 06:29] LABS: ANION GAP 16.6 MEQ/L (5-15); BILIRUBIN,TOTAL 0.6 mg/dL (0.2-1.3); Creatinine 1 0.92 mg/dL (0.66-1.25); EST GLOMERULAR FILTRATION RATE 92.9 ML/MIN; Potassium 4.1 mmol/L (3.5-5.1); Total Protein 6.7 g/dL (6.3-8.2)
[2024-06-02] MEDS: celeBREX 100 MG PO SCH (09:17)
[2024-06-02] MEDS: Acidophilus TABLET PO SCH (09:18)
[2024-06-02] MEDS: BENADRYL 25 MG CAPSULE PO ONE (09:18)
--- NOTE | 2024-06-02 10:07 | PCM.NOTE ---
Date and Time: 06/02/24 1001 Subjective Assessment: 06/02/24 Mr. Son is a 63-year-old male, with a history of a crush injury to his left hand from falling and landing on an embedded piece of metal, initially received treatment for the injury in the emergency room on May 16. He had a 1 cm dorsal laceration and a small metallic foreign body, which was less than 1 mm in size, visible on x-ray. He was started on antibiotics and showed initial improvement. He was discharged with oral antibiotics and followed up in clinic with no signs of infection. However, by May 19, he developed increased redness, pain, and swelling, leading to re-admission for IV antibiotics. He was discharged on May 21 with significant improvement, and his condition seemed stable at follow-up, though his sed rate fluctuated. After a subsequent visit on May 30, imaging with a C-arm confirmed the foreign body, and he was advised that surgery might be needed if symptoms worsened. On May 31, he presented to the ER with increased symptoms, and his cellulitis had not fully resolved, despite antibiotic treatment. Due to persistent infection and the risk of ongoing issue s, surgery was recommended to remove the foreign body, and the patient consented to proceed with the procedure. He was taken to OR yesterday by ortho. Today left arm in sling, and hand wrapped, pain overall improved. PLan is to d/c tomorrow per ortho. He denies any further concerns at this time. - Review of Systems Constitutional: No Fever, No Chills Eyes: No Symptoms Ears, Nose, & Throat: No Symptoms Respiratory: No Cough, No Short Of Breath Cardiac: No Chest Pain, No Edema, No Syncope Abdominal/Gastrointestinal: No Abdominal Pain, No Nausea, No Vomiting, No Diarrhea Genitourinary Symptoms: No Dysuria Musculoskeletal: No Back Pain, No Neck Pain Skin: Skin Lesions (left hand- wrapped), No Rash Neurological: No Dizziness, No Focal Weakness, No Sensory Changes Psychological: No Symptoms Endocrine: No Symptoms Hematologic/Lymphatic: No Symptoms Immunological/Allergic: No Symptoms Objective Exam General Appearance: no apparent distress, alert Neurologic Exam: alert, oriented x 3, cooperative, normal mood/affect, nml cerebellar function, sensation nml, No motor deficits Skin Exam: normal color, warm, dry, other (Left hand cellultis- surgery yesterday and hand wrapped and elevated in sling.) Wound Assessment: Skin/Wound Assessment Wound/Incision Assessment Start: 06/01/24 03:24 Text: Status: Active Freq: Q6H Protocol: Document 06/02/24 08:00 [facility] (Rec: 06/02/24 08:18 [facility] [id number]) Wound/Incision Assessment Left Hand Wound Assessment Shift Assessment Wound Type I&D and foreign body removal of left hand Wound Stage Non Pressure Wound Dressing Status Dry & Intact Drainage Amount None Drainage Odor None/Absent Surrounding Tissue Edematous Comment POD #1 I&D and foreign body removal of left hand. Drsg's remain C/D/I and left arm in sling with pillow support provided. Drsg consists of Iodoform packing, adaptic, 4x4, kerlix, lisa and in a sling Wound Photo Photo Taken No Eye Exam: PERRL, EOMI, eyes nml inspection Ears, Nose, Throat Exam: normal ENT inspection, pharynx normal, moist mucous membranes Neck Exam: normal inspection, non-tender, supple, full range of motion Respiratory Exam: normal breath sounds, lungs clear, No respiratory distress Cardiovascular Exam: regular rate/rhythm, normal heart sounds Gastrointestinal/Abdomen Exam: soft, No tenderness, No mass Extremity Exam: normal inspection, normal range of motion Back Exam: normal inspection, normal range of motion, No CVA tenderness, No vertebral tenderness Male Genitalia Exam: deferred Rectal Exam: deferred Objective Data Vital Signs: Vital Signs - 24 hr Temp Pulse Resp BP Pulse Ox 06/02/24 07:20 98.4 F 100 H 18 145/73 94 L 06/02/24 04:00 18 06/01/24 23:48 98.4 F 90 16 173/84 95 06/01/24 20:00 99.0 F 112 H 17 129/69 96 06/01/24 16:30 97.1 F 109 H 17 123/70 95 06/01/24 15:30 97.5 F 95 H 16 123/62 97 06/01/24 14:30 97.7 F 88 18 120/73 97 06/01/24 14:00 97.3 F 76 20 128/73 95 06/01/24 13:30 97.1 F 86 20 133/76 95 06/01/24 13:15 96.9 F 77 20 146/79 95 06/01/24 13:00 97.1 F 94 H 24 163/80 96 Pain Assessment - Last Documented Pain Intensity 3 Pain Scale Used 0-10 Pain Scale Intake and Output: Intake & Output 05/30/24 05/31/24 06/01/24 06/02/24 11:59 11:59 11:59 11:59 Intake Total 2443 Output Total 500 1100 Balance -500 1343 Weight 75.2 kg Lab Results: Lab Results-Last 24 Hours 06/02/24 06/02/24 06/02/24 Range/Units 05:36 05:36 05:36 WBC 11.5 H (4.23-9.07) x10^3/uL RBC 4.57 L (4.63-6.08) x10^6/uL Hgb 13.8 (13.7-17.5) g/dL Hct 42.0 (40.1-51.0) % MCV 91.9 (79.0-92.2) fL MCH 30.2 (25.7-32.2) pg MCHC 32.9 (32.3-36.5) g/dL RDW 13.0 (11.6-14.4) % Plt Count 393 H (163-337) x10^3/uL MPV 10.0 (9.4-12.4) fL ESR 22 H (0-15) mm/hr Sodium 136 (135-145) mmol/L Potassium 4.1 (3.5-5.1) mmol/L Chloride 101 (98-107) mmol/L Carbon Dioxide 23 (22-30) mmol/L Anion Gap 16.6 H (5-15) MEQ/L BUN 8 L (9-20) mg/dL Creatinine 0.92 (0.66-1.25) mg/dL Estimated GFR 92.9 ML/MIN Glucose 92 (74-106) mg/dL Calcium 9.0 (8.4-10.2) mg/dL Total Bilirubin 0.60 (0.2-1.3) mg/dL AST 29 (17-59) U/L ALT 16 (0-50) U/L Alkaline Phosphatase 71 (38-126) U/L Serum Total Protein 6.7 (6.3-8.2) g/dL Albumin 4.0 (3.5-5.0) g/dL Radiology Exams: Radiology Procedures Category Date Time Status FLUOROSCOPY UP TO 1 HR Routine Exams 06/01/24 08:57 Completed HAND (MINIMUM 3 VIEWS) Routine Exams 06/01/24 08:57 Completed UPPER EXTREMITY W/O CONTRAST [CT] Stat Exams 05/31/24 23:33 Completed Multi-Disciplinary Progress Notes: Multi-Disciplinary Progress Notes 06/01/24 12:24 Pharmacy Note by Ronn Francis Pharmacokinetic dosing service Date: 06/01/2024 Time: 1230 Objective: Patient: Oli Son Floor: 102 Age: 63 yo Serum creatinine: 0.98 mg/dL Height: 69 Inches Weight (kg): 75 Diagnosis: CELLULITIS, FOREIGN BODY HAND Relevant medical/social history: Cultures and sensitivities: BLOOD CULTURE PENDING Other labs: Assessment: IBW (kg): 70.70 Dosing wt(kg): 75 Estimated Creatinine clearance (ml/min): 76.2 CRCL method: Cockcroft and Gault using ibw(default). Drug selected: Vancomycin Loading dose (mg): 0 Vd (liters): 56.2 (factor used: 0.75 L/kg) Jabier (hr-1): 0.068 Half life (hrs): 10.19 Recommended dose: 1000 mg Interval: 12 hrs Infusion time (hrs): 1.5 Predicted peak (mcg/mL): 30.3 Predicted trough (mcg/mL): 14.84 Total body weight is being used for vancomycin dosing. Renal function is stable [ ] /unstable [ ] Recommendations: Give Vancomycin 1000 mg q 12 hrs with an expected Cpeak of 30.3 mcg/ml and an expected Ctrough of 14.84 mcg/ml Renal dosing of other antibiotics (review renal dosing of other medications and list guidelines here): ARABELLA Thank you for the consult, will continue to follow. Signature: AVI AMEZQUITA TROUGH 06/03 0930 Initialized on 06/01/24 12:24 - END OF NOTE Assessment/Plan (1) Cellulitis Current Visit: Yes Status: Acute Assessment & Plan: - Per ortho 06/01: Recommend that we take the patient to surgery to explore this wound to remove the foreign body. The cellulitis has continued to similar for approximately 2 weeks now, it has been improved with antibiotics but not eradicated, after seeing him 48 hours ago symptoms flared back up which necessitates exploration and removal of the foreign body. I have discussed this with the patient who is in agreement. Will proceed with surgical management as discussed. - CBC reviewed 11.5 today- likely 2:2 surgery yesterday - Left arm in sling and left hand wrapped - Ortho here today to eval pt. Code(s): L03.90 - CELLULITIS, UNSPECIFIED (2) Foreign body hand Current Visit: Yes Status: Acute Qualifiers: Laterality: left Assessment & Plan: - After crush injury - Ortho consult for removal of foreign object - Surgery 06/01 - POD day # 2 surgery - See plan above Code(s): S60.559A - SUPERFICIAL FOREIGN BODY OF UNSPECIFIED HAND, INIT ENCNTR (3) Tenosynovitis Current Visit: Yes Status: Acute Assessment & Plan: - IV antibiotics - Elevate arm/hand in sling - Ortho consult - Narcotic pain control - Cymbalta for nerve pain - CBC. CMP reviewed Code(s): M65.90 - UNSPECIFIED SYNOVITIS AND TENOSYNOVITIS, UNSPECIFIED SITE (4) Crushing injury of left hand Current Visit: Yes Status: Acute Qualifiers: Encounter type: subsequent encounter Qualified Code(s): S67.22XD - Crushing injury of left hand, subsequent encounter Assessment & Plan: - Cymbalta added for nursing nerve pain as he has allergies to other meds - Narcotic pain meds - ortho consult - If extreme nerve pain continues despite wound healing- consider referral to pain management evaluation of complex regional pain syndrome (CRPS). As may be a candidate for a nerve block. Code(s): S67.22XA - CRUSHING INJURY OF LEFT HAND, INITIAL ENCOUNTER (5) Allergic reaction Current Visit: Yes Status: Acute Qualifiers: Encounter type: initial encounter Qualified Code(s): T78.40XA - Allergy, unspecified, initial encounter Assessment & Plan: - Pt received Unasyn yesterday and developed redness on torso and arms, as well as itching - Discussed with Ortho and he stated to place pt on what antibiotics he was on last vivit as he had no reactions and infection responded well. - Benadryl PO x1 gave pm 06/01 - Today pt again has redness on torso- again Benadryl gave PO. Pt has no c/o itching as he did yesterday and states he sometimes gets red and he does not know why. Code(s): T78.40XA - ALLERGY, UNSPECIFIED, INITIAL ENCOUNTER (6) HTN (hypertension) Current Visit: No Status: Chronic Qualifiers: Hypertension type: primary hypertension Qualified Code(s): I10 - Essential (primary) hypertension Assessment & Plan: - BP stable- trend - Continue home meds Code(s): I10 - ESSENTIAL (PRIMARY) HYPERTENSION (7) Hyponatremia Current Visit: Yes Status: Resolved Assessment & Plan: - resolved VTE: Walking in room none needed PPI: Protonix D/C plan: tomorrow Next of KIN: Spouse- Maxine Son [phone] Code status: Full Code(s): E87.1 - HYPO-OSMOLALITY AND HYPONATREMIA
[2024-06-02] MEDS: SOMA 350 MG PO PRN (10:37)
--- NOTE | 2024-06-02 11:35 | PCM.NOTE ---
Date and Time: 06/02/24 1133 t--Subjective--postoperative day 1 incision drainage and removal foreign body left hand Patient overall is feeling much better with less pain, and improved ability to move fingers Objective--dressings were removed from the left hand today. He has a Z-plasty type incision on his hand with iodoform packing this was removed. Erythema and swelling of the dorsal hand are much improved, the best it looked in approximately 10 days. He feels better and can move the fingers better. We removed the packing and were able to express from the wound a small amount of bloody drainage. Sterile dressings were then applied Assessment--cellulitis left hand with foreign body, status post debridement and foreign body removal day 1. Patient is improving, still on IV antibiotics Plan--recommend continued IV antibiotics, reassess tomorrow, possible discharge tomorrow with oral antibiotics if improvement continues. Objective Data Vital Signs: Vital Signs - 24 hr Temp Pulse Resp BP Pulse Ox 06/02/24 07:20 98.4 F 100 H 18 145/73 94 L 06/02/24 04:00 18 06/01/24 23:48 98.4 F 90 16 173/84 95 06/01/24 20:00 99.0 F 112 H 17 129/69 96 06/01/24 16:30 97.1 F 109 H 17 123/70 95 06/01/24 15:30 97.5 F 95 H 16 123/62 97 06/01/24 14:30 97.7 F 88 18 120/73 97 06/01/24 14:00 97.3 F 76 20 128/73 95 06/01/24 13:30 97.1 F 86 20 133/76 95 06/01/24 13:15 96.9 F 77 20 146/79 95 06/01/24 13:00 97.1 F 94 H 24 163/80 96 Pain Assessment - Last Documented Pain Intensity 5 Pain Scale Used 0-10 Pain Scale Intake and Output: Intake & Output 05/30/24 05/31/24 06/01/24 06/02/24 11:59 11:59 11:59 11:59 Intake Total 2443 Output Total 500 1100 Balance -500 1343 Weight 75.2 kg Lab Results: Lab Results-Last 24 Hours 06/02/24 06/02/24 06/02/24 Range/Units 05:36 05:36 05:36 WBC 11.5 H (4.23-9.07) x10^3/uL RBC 4.57 L (4.63-6.08) x10^6/uL Hgb 13.8 (13.7-17.5) g/dL Hct 42.0 (40.1-51.0) % MCV 91.9 (79.0-92.2) fL MCH 30.2 (25.7-32.2) pg MCHC 32.9 (32.3-36.5) g/dL RDW 13.0 (11.6-14.4) % Plt Count 393 H (163-337) x10^3/uL MPV 10.0 (9.4-12.4) fL ESR 22 H (0-15) mm/hr Sodium 136 (135-145) mmol/L Potassium 4.1 (3.5-5.1) mmol/L Chloride 101 (98-107) mmol/L Carbon Dioxide 23 (22-30) mmol/L Anion Gap 16.6 H (5-15) MEQ/L BUN 8 L (9-20) mg/dL Creatinine 0.92 (0.66-1.25) mg/dL Estimated GFR 92.9 ML/MIN Glucose 92 (74-106) mg/dL Calcium 9.0 (8.4-10.2) mg/dL Total Bilirubin 0.60 (0.2-1.3) mg/dL AST 29 (17-59) U/L ALT 16 (0-50) U/L Alkaline Phosphatase 71 (38-126) U/L Serum Total Protein 6.7 (6.3-8.2) g/dL Albumin 4.0 (3.5-5.0) g/dL Radiology Exams: Radiology Procedures Category Date Time Status FLUOROSCOPY UP TO 1 HR Routine Exams 06/01/24 08:57 Completed HAND (MINIMUM 3 VIEWS) Routine Exams 06/01/24 08:57 Completed UPPER EXTREMITY W/O CONTRAST [CT] Stat Exams 05/31/24 23:33 Completed Multi-Disciplinary Progress Notes: Multi-Disciplinary Progress Notes 06/01/24 12:24 Pharmacy Note by Ronn Francis Pharmacokinetic dosing service Date: 06/01/2024 Time: 1230 Objective: Patient: Oli Son Floor: 102 Age: 63 yo Serum creatinine: 0.98 mg/dL Height: 69 Inches Weight (kg): 75 Diagnosis: CELLULITIS, FOREIGN BODY HAND Relevant medical/social history: Cultures and sensitivities: BLOOD CULTURE PENDING Other labs: Assessment: IBW (kg): 70.70 Dosing wt(kg): 75 Estimated Creatinine clearance (ml/min): 76.2 CRCL method: Cockcroft and Gault using ibw(default). Drug selected: Vancomycin Loading dose (mg): 0 Vd (liters): 56.2 (factor used: 0.75 L/kg) Jabier (hr-1): 0.068 Half life (hrs): 10.19 Recommended dose: 1000 mg Interval: 12 hrs Infusion time (hrs): 1.5 Predicted peak (mcg/mL): 30.3 Predicted trough (mcg/mL): 14.84 Total body weight is being used for vancomycin dosing. Renal function is stable [ ] /unstable [ ] Recommendations: Give Vancomycin 1000 mg q 12 hrs with an expected Cpeak of 30.3 mcg/ml and an expected Ctrough of 14.84 mcg/ml Renal dosing of other antibiotics (review renal dosing of other medications and list guidelines here): ARABELLA Thank you for the consult, will continue to follow. Signature: AVI VANCOMCYIN TROUGH 06/03 09 Initialized on 06/01/24 12:24 - END OF NOTE
[2024-06-02] MEDS: Zocor 10MG PO SCH (22:21)
--- NOTE | 2024-06-03 05:08 | PCM.DS ---
Discharge Summary Date of Admission: 06/01/24 09:45 Date of Discharge: 06/03/24 Admitting Physician: CHRISTIAN TORRES MD Consults: Consults on Case 06/01/24 02:18 Consult Ortho ROUTINE Primary Care Provider: KYLAH SAENZ MALISSA Allergies Allergies gabapentin Allergy (Severe, Verified 05/31/24 23:16) Tightness of Throat rash and itch morphine Allergy (Severe, Verified 05/31/24 23:16) Rapid Heart Beat states "like anxiety" iodine Allergy (Verified 05/31/24 23:16) hydromorphone Adverse Reaction (Intermediate, Verified 06/02/24 09:44) PATIENT STATED HAD SOME DIFFICULTY BREATHING Hospital Summary - Hospital Course Hospital Course: Mr. Son is a 63-year-old male with a pmhx of HLD, HTN, and asthma who was initially treated in the ED on May 16 for a crush injury to his left hand, sustained from falling onto a small embedded metallic foreign body. Ortho consulted for evaluation and has been following patient. Despite initial improvement with oral antibiotics, he developed worsening redness, pain, and swelling by May 19, requiring hospital readmission for IV antibiotics. Alt chloe his symptoms improved, persistent fluctuating inflammation raised concerns. Imaging on May 30 confirmed the retained foreign body, and after worsening symptoms on May 31, surgical removal was recommended by ortho. He underwent surgery on June 01, and postoperatively his pain has improved. His left hand remains wrapped and in a sling. He also experienced a mild allergic reaction to Unasyn, which was managed with Benadryl, and his antibiotics were adjusted accordingly. He is stable with no signs of worsening infection. His hypertension remains well-controlled, and his previously noted hyponatremia has resolved. Patient will be dismissed with close follow up by Ortho for final culture read and will continue OP Bactrim and Keflex per ortho recommendations. Patient agreeable to plan and stable for discharge. Dressing changes per ortho. Discharge Note New Medications: Continue bacterim/keflex - will call out an additiona 4 days Follow Up: Ortho Results pending: wound cultures I spent 35 minutes [id number] with the patient on the day of discharge performing discharge exam, discussing hospital stay and discharge instructions with patient and caregivers, preparation of discharge records, prescriptions & referral forms and addressing any questions/concerns the patient had as documented above. - Vitals & Intake/Output Vital Signs: Vital Signs Temperature 97.7 F 06/03/24 03:56 Pulse Rate 78 06/03/24 03:56 Respiratory Rate 18 06/03/24 03:56 Blood Pressure 114/69 06/03/24 03:56 O2 Sat by Pulse Oximetry 94 L 06/03/24 03:56 Intake & Output: Intake & Output 05/31/24 06/01/24 06/02/24 06/03/24 11:59 11:59 11:59 11:59 Intake Total 2443 903 Output Total 500 1100 Balance -500 1343 903 Weight 75.2 kg - Lab Result Diagrams: 06/03/24 05:00 06/03/24 05:00 Lab Results-Last 24 Hrs: Lab Results-Last 24 Hours 06/02/24 06/02/24 06/02/24 Range/Units 05:36 05:36 05:36 WBC 11.5 H (4.23-9.07) x10^3/uL RBC 4.57 L (4.63-6.08) x10^6/uL Hgb 13.8 (13.7-17.5) g/dL Hct 42.0 (40.1-51.0) % MCV 91.9 (79.0-92.2) fL MCH 30.2 (25.7-32.2) pg MCHC 32.9 (32.3-36.5) g/dL RDW 13.0 (11.6-14.4) % Plt Count 393 H (163-337) x10^3/uL MPV 10.0 (9.4-12.4) fL ESR 22 H (0-15) mm/hr Sodium 136 (135-145) mmol/L Potassium 4.1 (3.5-5.1) mmol/L Chloride 101 (98-107) mmol/L Carbon Dioxide 23 (22-30) mmol/L Anion Gap 16.6 H (5-15) MEQ/L BUN 8 L (9-20) mg/dL Creatinine 0.92 (0.66-1.25) mg/dL Estimated GFR 92.9 ML/MIN Glucose 92 (74-106) mg/dL Calcium 9.0 (8.4-10.2) mg/dL Total Bilirubin 0.60 (0.2-1.3) mg/dL AST 29 (17-59) U/L ALT 16 (0-50) U/L Alkaline Phosphatase 71 (38-126) U/L Serum Total Protein 6.7 (6.3-8.2) g/dL Albumin 4.0 (3.5-5.0) g/dL Micro Results-Entire Visit: Microbiology 05/31/24 23:42 Blood Culture - Preliminary Blood 05/31/24 23:42 Blood Culture - Preliminary Blood - Radiology Exams Ordered Rad Exams-Entire Visit: Radiology Procedures Category Date Time Status FLUOROSCOPY UP TO 1 HR Routine Exams 06/01/24 08:57 Completed HAND (MINIMUM 3 VIEWS) Routine Exams 06/01/24 08:57 Completed Discharge Exam General Appearance: no apparent distress (Left hand in surgical dressing) Neurologic Exam: alert, oriented x 3, cooperative Eye Exam: PERRL Ears, Nose, Throat Exam: normal ENT inspection Neck Exam: normal inspection Respiratory Exam: normal breath sounds, lungs clear Cardiovascular Exam: regular rate/rhythm, normal heart sounds Gastrointestinal/Abdomen Exam: soft, normal bowel sounds Male Genitalia Exam: deferred Rectal Exam: deferred Back Exam: normal inspection Extremity Exam: other Wound Assessment: Skin/Wound Assessment Wound/Incision Assessment Start: 06/01/24 03:24 Text: Status: Active Freq: Q6H Protocol: Document 06/02/24 12:09 IRINA (Rec: 06/02/24 12:12 [facility] [id number]) Wound/Incision Assessment Left Hand Wound Assessment Shift Assessment Wound Type I&D and foreign body removal of left hand Wound Stage Non Pressure Wound Dressing Status Changed Drainage Amount None Drainage Description Sanguineous Drainage Odor None/Absent Wound Bed Greatest Portion Red (Granulation) Surrounding Tissue Edematous Comment POD #1 I&D and foreign body removal of left hand. Redness receding from borders outlined , edema is significantly improved from prior to surgery more slight. Some drainage noted upon removal of drsg. Drsg's changed by Dr. Beth. Drsg consists of adaptic, 4x4, kerlix, lisa Per him, sling can be removed. Wound Photo Photo Taken No Final Diagnosis/Problem List - Final Discharge Diagnosis/Problem (1) Cellulitis Current Visit: Yes Status: Acute Assessment & Plan: - Surgical intervention 06/01/24 - ortho note reviewed -Blood cultures reviewed with NGTD -Cultures of the left hand pending -CMP/CBC reviewed -Ortho following -Vanc/Zosyn given IP- Continue Bactrim/Keflex as OP with additional 4 days added -WBC reviewed and WNL at 7.1 Code(s): L03.90 - CELLULITIS, UNSPECIFIED (2) Crushing injury of left hand Current Visit: Yes Status: Acute Assessment & Plan: - Cymbalta added for nerve pain as he has allergies to other meds - Narcotic pain meds - ortho consult - If extreme nerve pain continues despite wound healing- consider referral to pain management evaluation of complex regional pain syndrome (CRPS). As may be a candidate for a nerve block. Code(s): S67.22XA - CRUSHING INJURY OF LEFT HAND, INITIAL ENCOUNTER (3) Allergic reaction Current Visit: Yes Status: Acute Assessment & Plan: - IP antimicrobial history: Unasyn- patient developed redness on torso and arms, as well as itching-discontinued - replaced with vanc/zosyn - -Benadryl PO x1 gave pm 06/01 Code(s): T78.40XA - ALLERGY, UNSPECIFIED, INITIAL ENCOUNTER (4) Foreign body hand Current Visit: Yes Status: Acute Assessment & Plan: - After crush injury - Surgery 06/01 - See plan above Code(s): S60.559A - SUPERFICIAL FOREIGN BODY OF UNSPECIFIED HAND, INIT ENCNTR (5) Tenosynovitis Current Visit: Yes Status: Acute Assessment & Plan: - IP treatment with vanc/zosyn - Elevate arm/hand in sling - Ortho following - Narcotic pain control - Cymbalta for nerve pain - CBC. CMP reviewed Code(s): M65.90 - UNSPECIFIED SYNOVITIS AND TENOSYNOVITIS, UNSPECIFIED SITE (6) Hyponatremia Current Visit: Yes Status: Resolved Assessment & Plan: - CMP reviewed with sodium level wnl at 136 -resolved Code(s): E87.1 - HYPO-OSMOLALITY AND HYPONATREMIA (7) HTN (hypertension) Current Visit: No Status: Chronic Assessment & Plan: - BP stable VTE: Walking in room none needed PPI: Protonix D/C plan: tomorrow Next of KIN: Spouse- Maxine Son [phone] Code status: Full Code(s): I10 - ESSENTIAL (PRIMARY) HYPERTENSION - Discharge Disposition: Home, Self-Care Condition: Stable Prescriptions: No Action Tamsulosin HCl 0.4 mg [Flomax 0.4 MG] 0.4 mg PO QHS Pravastatin Sodium [Pravachol] 10 mg PO HS Polyethylene Glycol 3350 17 gm [Miralax Powder 17GM PACKET] 1 packet PO DAILY PRN PRN PRN Reason: Constipation Carisoprodol 350 mg [Soma 350 mg] 350 mg PO QID PRN Hydrocodone/Acetaminophen [[place] 10-325 mg] 10 mg PO QID PRN Celecoxib 100 mg [celeBREX 100 MG] 200 mg PO DAILY Lactobacillus Acidophilus/Fos [Acidophilus Probiotic Tablet] 1 each PO DAILY 30 Days #30 tablet Cephalexin Mh 500 mg [Keflex 500 mg] 1 tab PO QID Sulfamethoxazole/Trimethoprim [Bactrim Ds Tablet] 1 each PO BID Follow up with: KYLAH SAENZ MD [Primary Care Provider] - DEANNA BETH MD [ACTIVE STAFF] -
[2024-06-03 05:17] LABS: Hematocrit 42.7 % (40.1-51.0); Hemoglobin 13.7 g/dL (13.7-17.5); Mean Corpuscular Hemoglobin 29.8 pg (25.7-32.2); Mean Corpuscular Hgb Concent. 32.1 g/dL (32.3-36.5); Mean Platelet Volume 9.7 fL (9.4-12.4); Platelet Count 351 x10^3/uL (163-337); Red Blood Count 4.59 x10^6/uL (4.63-6.08); Red Cell Distribution Width 13.1 % (11.6-14.4); White Blood Count 7.1 x10^3/uL (4.23-9.07)
[2024-06-03 05:33] LABS: ALBUMIN 4.1 g/dL (3.5-5.0); ANION GAP 15.6 MEQ/L (5-15); BILIRUBIN,TOTAL 0.5 mg/dL (0.2-1.3); Calcium 8.9 mg/dL (8.4-10.2); Creatinine 1 0.99 mg/dL (0.66-1.25); EST GLOMERULAR FILTRATION RATE 85.1 ML/MIN; Potassium 4.3 mmol/L (3.5-5.1); Total Protein 6.7 g/dL (6.3-8.2)
[2024-06-03] MEDS ORDERED: PEROXIDE 3% ONE (07:53)
[2024-06-03] MEDS: TROUGH DRUG LEVELS IJ ONE (10:59)
[2024-06-03 11:48] VITALS: BP 130/71; PULSE 76; RESP 20; TEMP 99.3; O2SAT 96
--- NOTE | 2024-06-03 12:19 | PCM.DCORD ---
- Discharge Discharge Date: 06/03/24 Disposition: Home, Self-Care Condition: Stable Prescriptions: Continue Tamsulosin HCl 0.4 mg [Flomax 0.4 MG] 0.4 mg PO QHS Pravastatin Sodium [Pravachol] 10 mg PO HS Polyethylene Glycol 3350 17 gm [Miralax Powder 17GM PACKET] 1 packet PO DAILY PRN PRN PRN Reason: Constipation Carisoprodol 350 mg [Soma 350 mg] 350 mg PO QID PRN Hydrocodone/Acetaminophen [[place] 10-325 mg] 10 mg PO QID PRN Celecoxib 100 mg [celeBREX 100 MG] 200 mg PO DAILY Lactobacillus Acidophilus/Fos [Acidophilus Probiotic Tablet] 1 each PO DAILY 30 Days #30 tablet Sulfamethoxazole/Trimethoprim [Bactrim Ds 800-160 mg Tablet] 1 each PO BID 4 Days #8 tablet Cephalexin Mh 500 mg [Keflex 500 mg] 1 tab PO QID 4 Days #16 cap Additional Instructions: DRESSING CHANGES PER INSTRUCTED BY DR. BETH Follow up with: KYLAH SAENZ MD [Primary Care Provider] - 06/10/24 2:15 pm KARLIE CANTRELL NP [NON-STAFF PHY W/O PRIVILEGES] - 06/13/24 10:00 am
--- NOTE | 2024-06-19 13:07 | OP ---
SURGERY DATE/TIME: 06/01/2024 [id number] PREOPERATIVE DIAGNOSIS: Crush injury, left hand, with foreign body. POSTOPERATIVE DIAGNOSIS: Crush injury, left hand, with foreign body. PROCEDURE: 1) Debridement of wound, left hand. 2) Removal of foreign body, left hand. SURGEON: Angel Horner MD INDICATIONS: The patient injured his left hand in a crush injury mechanism and was seen in the emergency room at [facility]. X-rays showed a punctate metallic-appearing body within the soft tissue that was suspected to be a foreign body. He was seen in the clinic and the wound was benign. He was treated with oral antibiotics and observation. He had a bout of cellulitis that resolved with antibiotics. The cellulitis recurred, and we recommended debridement of the wound with foreign body removal. DESCRIPTION OF PROCEDURE AND FINDINGS: The patient was seen preoperatively and the operative limb and plan were reviewed. He was taken to the operating room, placed under general anesthesia. Sterile prep and drape of the left arm were carried out with a tourniquet on the left upper arm. We exsanguinated the arm, inflated the tourniquet. The wound itself was approximately 1.5 cm long, obliquely oriented over the dorsum of the hand between the 2nd and 3rd metacarpals. We extended this in Z fashion, excising the tissue around the margins of the wound itself. When we retracted the skin flaps, we encountered no evidence of active infection or purulence. We could see a tear in the dorsal fascia. As we probed this area, we removed a small punctate black piece. We used the C-arm to look at the hand and we could no longer see a foreign body. We then viewed the black piece separately and it did visualize on the C-arm. Therefore, we felt confident that we had removed the loose body. Once gain we noticed no evidence of purulence in this wound. We lavaged the wound with saline. We noted some necrotic-appearing fatty tissue in the subcutaneous plane which we did debride as well. We then closed the wound with widely spaced 4-0 nylon suture. We used 1/2-inch iodoform and packed it within the wound and brought it out through a separate stab wound. The hand was then wrapped in sterile fashion, tourniquet released, and the patient was taken to the recovery room in stable condition.
== END 2024-06-03 13:45 | disposition home or self-care (01) | DRG 580 ==
LOC: ED 23:01 → MED SURG 06-01 02:13 → OBSVTOIN 06-01 09:45
PROVIDERS: ADMIT Internal Medicine Nephrology; ATTEND Internal Medicine Nephrology
PROC: 0JCK0ZZ Extirpation of Matter from Left Hand Subcutaneous Tissue and Fascia, Open Approach (ICD-10-PCS; principal; 2024-06-01)
PROC: 0JBK0ZZ Excision of Left Hand Subcutaneous Tissue and Fascia, Open Approach (ICD-10-PCS; 2024-06-01)
DX: L03.114 Cellulitis of left upper limb (principal); E87.1 Hypo-osmolality and hyponatremia; S67 Crushing injury of wrist, hand and fingers; S60.552D Superficial foreign body of left hand, subsequent encounter; E78.5 Hyperlipidemia, unspecified; I10 Essential (primary) hypertension; M65.90 Unspecified synovitis and tenosynovitis, unspecified site; Z79.899 Other long term (current) drug therapy; T36.0X5A Adverse effect of penicillins, initial encounter
CPT/HCPCS: 10120; 11042; 36415; 64415; 73130; 73200; 76000; 76937; 80053; 80202; 83605; 84145; 85025; 85027; 85652; 87040; 87046; 87075; 87116; 87205; 87206; 93005; 96374; 96375; 99140; 99285; J0295; J0330; J0666; J1100; J1171; J1885; J2250; J2405; J2543; J2704; J3010; J3370; Q3014; A9270-GY

== ENCOUNTER 2024-09-18 05:55 | Day surgery (SDC) | payer MEDICARE ==
[2024-09-18] MEDS ORDERED: CEFAZOLIN SODIUM ONE (06:06)
[2024-09-18] MEDS: TYLENOL EXTRA STRENGTH 500 MG PO ONE (06:12)
[2024-09-18] MEDS: Lactated Ringers 1,000 ML IV SCH (06:13)
[2024-09-18] MEDS: Decadron 4 MG PO ONE (06:13)
[2024-09-18] MEDS ORDERED: CEFAZOLIN 2 GM/100 ML NaCl 2 GM/100 ML IVPB IV SCH (06:15)
[2024-09-18 06:29] LABS: Hematocrit 45.8 % (40.1-51.0); Hemoglobin 15.3 g/dL (13.7-17.5); Mean Corpuscular Hemoglobin 29.8 pg (25.7-32.2); Mean Corpuscular Hgb Concent. 33.4 g/dL (32.3-36.5); Platelet Count 221 x10^3/uL (163-337); Red Blood Count 5.13 x10^6/uL (4.63-6.08); White Blood Count 5.3 x10^3/uL (4.23-9.07)
[2024-09-18 06:37] LABS: Calcium 9.7 mg/dL (8.4-10.2); Carbon Dioxide 30.0 mmol/L (22-30); Creatinine 1 1.05 mg/dL (0.66-1.25); EST GLOMERULAR FILTRATION RATE 79.3 ML/MIN; Glucose 89.0 mg/dL (74-106); Potassium 4.4 mmol/L (3.5-5.1); SGOT/AST 34.0 U/L (17-59); SGPT/ALT 22.0 U/L (0-50); Total Protein 7.4 g/dL (6.3-8.2)
[2024-09-18] MEDS ORDERED: Pre-Attached Lta Kit TP ONE (06:53)
[2024-09-18] MEDS ORDERED: Marcaine Mpf 0.5% Vial 30 Ml ONE (06:54)
[2024-09-18] MEDS ORDERED: EXPAREL 133 MG/10 ML VIAL IJ ONE (06:54)
[2024-09-18] MEDS ORDERED: Versed 2 MG/2 ML Injection ONE (06:57)
[2024-09-18] MEDS ORDERED: DEXMEDETOMIDINE 80 MCG/20ML-NS IV ONE (06:58)
[2024-09-18] MEDS ORDERED: ROCURONIUM BROMIDE IV ONE (06:58)
[2024-09-18] MEDS ORDERED: Xylocaine-Mpf 2% 5 Ml Vial ONE (06:58)
[2024-09-18] MEDS ORDERED: Zofran 4 MG/2 ML VIAL ONE ×2 (06:58→09:13)
[2024-09-18] MEDS ORDERED: SUBLIMAZE 100 MCG/2 ML ONE (06:58)
[2024-09-18] MEDS ORDERED: propofoL IV ONE (06:58)
[2024-09-18] MEDS ORDERED: Ephedrine Sulfate 50 MG/ML ONE (07:27)
[2024-09-18] MEDS ORDERED: PHENYLEPHRINE HCL ONE (07:39)
[2024-09-18] MEDS ORDERED: BRIDION 200MG/2ML IV ONE (08:26)
[2024-09-18] MEDS ORDERED: Lactated Ringers 1,000 ML IV ONE (08:29)
[2024-09-18 10:00] VITALS: RESP 16; TEMP 97.2
[2024-09-18 10:09] VITALS: BP 130/81; PULSE 75; O2SAT 97
--- NOTE | 2024-09-19 09:06 | OP ---
SURGERY DATE/TIME: 09/18/2024 [id number] PREOPERATIVE DIAGNOSIS: Left rotator cuff tear POSTOPERATIVE DIAGNOSIS: Left rotator cuff tear PROCEDURE: Left open rotator cuff repair SURGEON: Neo Parham MD CLINICAL INFORMATICS MANAGER: LEA Amaral ANESTHESIA: 1) Nerve block 2) General ESTIMATED BLOOD LOSS: 20 mL IV FLUIDS: 1000 mL crystalloid IMPLANTS: Arthrex COMPLICATIONS: None CONDITION: Stable to PACU INDICATIONS: Mr. Son is a 63-year-old male who [facility] for evaluation of his left shoulder. The patient had a longstanding history of left shoulder pain and previous history of a left shoulder surgery. An MRI of the left shoulder was obtained, which indicated a rotator cuff tear involving the supraspinatus and infraspinatus tendons. Having failed multiple nonoperative treatment modalities for the left shoulder, the patient elected to proceed with surgical intervention in the form of left open rotator cuff repair. The risks and benefits of the planned procedure were discussed in depth with the patient. These risks include, but are not limited to, general medical problems associated with anesthesia, infection, bleeding, damage to nerves and vessels, pain after surgery, and the need for future procedures. The patient acknowledged and accepted these risks. Informed consent was obtained. DESCRIPTION OF PROCEDURE AND FINDINGS: After informed consent was obtained, the correct operative site was identified and marked. Preoperative antibiotics were administered. The patient was taken to the operating room and transferred to the operating table. A left upper extremity nerve block was performed. General anesthesia was induced without difficulty. The patient was placed into the beach chair position. All pressure points were identified and padded. The left upper extremity was prepped and draped in a normal sterile fashion. A time-out was performed. Using the anterolateral border of the acromion as a landmark, an incision was made 1 cm lateral to this. Hemostasis was maintained using electrocautery. The dissection was carried down to the level of the deltoid muscle. The natural raphe between the anterior and middle thirds of the deltoid was utilized, and a deltoid split was performed. The subdeltoid bursa was excised. The rotator cuff tear was readily identified; a large 3 cm U-shaped tear of the rotator cuff involving the supraspinatus and infraspinatus tendons was noted; the tissues of the infraspinatus tendon were noted to be thinned. The torn tendon edge was freshened using a scalpel. The exposed bone of the greater tuberosity was roughened using a rongeur to create a bleeding bony surface. An Arthrex SpeedBridge device was used to repair the tendon back to the bone. Due to the size of the tear, an additional Arthrex knotless suture anchor with FiberWire was utilized to secure the central portion of the tear down to the bone. Good repair of the tendon to the bone was noted. The wound was thoroughly irrigated with normal saline via bulb syringe irrigation. The deltoid split was repaired using 0 Vicryl in an interrupted stitch. The subcutaneous tissues were closed using 2-0 Vicryl in a deep dermal interrupted stitch. The skin was closed using 3-0 Monocryl in a running subcuticular stitch, followed by Dermabond. Sterile dressings were applied. The patient was awoken from anesthesia and transferred to the recovery room in stable condition. All counts were correct at the end of the case.
== END 2024-09-18 10:21 | disposition home or self-care (01) ==
LOC: SDC 05:55
PROVIDERS: ATTEND Orthopaedic Surgery
DX: M75.122 Complete rotator cuff tear or rupture of left shoulder, not specified as traumatic (principal); I10 Essential (primary) hypertension
CPT/HCPCS: 01630; 23412; 36415; 64415; 76937; 76942; 80053; 85027; C1713

== ENCOUNTER 2024-11-13 15:57 | Emergency (ER) | payer MEDICARE ==
[2024-11-13 16:26] VITALS: BP 124/70; RESP 16; TEMP 98.7; O2SAT 98
--- NOTE | 2024-11-13 16:28 | ERPHSYRPT ---
- History of Present Illness Time Seen by Provider: 11/13/24 16:17 Source: patient Exam Limitations: no limitations Patient Subjective Stated Complaint: patietn having swelling nad fluid in his right knee Triage Nursing Assessment: pt drove to ED himself, his right knee is swollen with fluid around knee, pedal pulses present vilaterally no open skin areas. patietn is alert nad orientedx4, able to ambulate by self, jsut pain intensifies with weight bearing . denies any injury just started dveloping yesterday during day. Physician History: 63-year-old male presents to the emergency room with right knee pain patient reports he is having swelling and tenderness to his right leg denies any prior history of blood clots patient reports good history of arthritis denies any falls or trauma denies any twisting or turning now in ED for further eval for swelling Occurred: just prior to arrival Quality: constant Lower Extremities Pain: leg: right, knee: right, thigh: right Modifying Factors: Improves With: nothing Associated Symptoms: none Allergies/Adverse Reactions: gabapentin Allergy (Severe, Verified 09/18/24 06:07) Tightness of Throat rash and itch hydromorphone Allergy (Severe, Verified 09/18/24 06:07) Anaphylaxis PATIENT STATED HAD SOME DIFFICULTY BREATHING morphine Allergy (Severe, Verified 09/18/24 06:07) Rapid Heart Beat states "like anxiety" iodine Allergy (Verified 09/18/24 06:07) lidocaine Allergy (Verified 09/18/24 06:07) Home Medications: Tamsulosin HCl 0.4 mg [Flomax 0.4 MG] 0.4 mg PO QHS 09/20/16 [History] Pravastatin Sodium [Pravachol] 10 mg PO HS 08/14/18 [History] Carisoprodol 350 mg [Soma 350 mg] 350 mg PO QID PRN 05/19/24 [History] Hydrocodone/Acetaminophen [[place] 10-325 mg] 10 mg PO QID PRN 05/19/24 [History] Celecoxib 100 mg [celeBREX 100 MG] 200 mg PO DAILY 05/20/24 [History] Albuterol Sulfate [Proair Respiclick] 90 mcg IH Q4HPRN PRN 07/26/24 [History] Anastrozole 0.5 mg PO UD 07/26/24 [History] Cyanocobalamin (Vitamin B-12) [Cyanocobalamin Injection] 1,000 mcg IJ UD 07/26/24 [History] Ergocalciferol (Vitamin D2) [Vitamin D2] 50,000 unit PO Q7D 07/26/24 [History] Lactobacillus Acidophilus/Fos [Acidophilus Probiotic Tablet] 0.5 mg PO DAILY 07/26/24 [History] Sildenafil Citrate [Viagra] 50 mg PO 3XW 07/26/24 [History] Testosterone Cypionate [Testone Cik] 200 mg IM UD 07/26/24 [History] ondansetron HCL [Ondansetron HCl] 4 mg PO TID PRN 07/26/24 [History] Hx Tetanus, Diphtheria Vaccination/Date Given: Yes Hx Influenza Vaccination/Date Given: Yes Hx Pneumococcal Vaccination/Date Given: Yes Immunizations Up to Date: Yes Travel Risk - International Travel Have you traveled outside of the country in past 3 weeks: No - Emerging Infectious Disease Are you exhibiting symptoms associated with any current EIDs: No - Review of Systems Constitutional: No Fever, No Chills Eyes: No Symptoms Ears, Nose, & Throat: No Symptoms Respiratory: No Cough, No Dyspnea Cardiac: No Chest Pain, No Edema, No Syncope Abdominal/Gastrointestinal: No Abdominal Pain, No Nausea, No Vomiting, No Diarrhea Genitourinary Symptoms: No Dysuria Musculoskeletal: Joint Pain, No Back Pain, No Neck Pain Skin: No Rash Neurological: No Dizziness, No Focal Weakness, No Sensory Changes Psychological: No Symptoms Endocrine: No Symptoms All Other Systems: Reviewed and Negative - Past Medical History Pertinent Past Medical History: Yes Neurological History: Migraines ENT History: No Pertinent History Cardiac History: Hypertension Respiratory History: Asthma Endocrine Medical History: Hypoglycemia Musculoskeletal History: Arthritis GI Medical History: Ulcer History: Other Psycho-Social History: No Pertinent History Male Reproductive Disorders: Prostate Problems Other Medical History: PSH: 30 SURGERIES ON LEFT HAND, BACK, NECK, LEFT FOOT, RIGHT SHOULDER, BILATERAL ELBOWS. - Past Surgical History Past Surgical History: Yes Neuro Surgical History: No Pertinent History Cardiac: No Pertinent History Respiratory: No Pertinent History Gastrointestinal: Appendectomy Genitourinary: No Pertinent History Musculoskeletal: Orthopedic Surgery Male Surgical History: No Pertinent History Other Surgical History: 20+ orthopedic surgeries following fall while on the job, HX FX LEFT HEEL (ORIF WITH METAL PLATE), FX SHOULDER AND ROTATOR CUFF REPAIR, Back surgeries including a spinal fusion, I and D to left hand 2024. - Social History Smoking Status: Never smoker Exposure to second hand smoke: No Drug Use: none - Social Determinants of Health Will the patient participate in the screening: Yes Do you worry about a steady place to live?: No Do you have any problems with any of the following?: No known problems In the past 12 months,have you had to go without utilities?: No Transportation Issues: No Has anyone in your support network made you feel unsafe?: No Have you or anyone in your house had to go w/o enough food: No - Nursing Vital Signs Nursing Vital Signs: Initial Vital Signs Temperature 98.7 F 11/13/24 16:21 Respiratory Rate 16 11/13/24 16:21 Blood Pressure 124/70 11/13/24 16:21 O2 Sat by Pulse Oximetry 98 11/13/24 16:21 Pain Scale Pain Intensity 6 - Physical Exam General Appearance: alert Eyes, Ears, Nose, Throat Exam: moist mucous membranes Neck Exam: non-tender, supple Cardiovascular/Respiratory Exam: chest non-tender, normal breath sounds, regular rate/rhythm, no respiratory distress Gastrointestinal/Abdominal Exam: non-tender, guarding Back Exam: normal inspection, No vertebral tenderness Legs Exam: left leg: soft tissue tenderness, swelling Knees Exam: left knee: soft tissue tenderness, swelling Neuro/Tendon Exam: normal sensation, normal motor functions Mental Status Exam: alert, oriented x 3, cooperative Skin Exam: normal color, warm, dry SpO2: 98 - Course Nursing assessment & vital signs reviewed: Yes Ordered Tests: Active Orders 24 hr Category Date Time Status Yohannes Bandage Application -[facility] STAT Care 11/13/24 16:50 Active VENOUS UNILAT/LIMITED EXTREMIT [US] Stat Exams 11/13/24 16:21 Taken - Progress Progress Note: 11/13/24 16:27 Obtain ultrasound to evaluate for DVT 11/13/24 16:51 Study was negative patient was wrapped in Yohannes bandage, advised to follow up with ortho, commend close return precautions patient be discharged this time - Departure Departure Disposition: Home Clinical Impression: Leg swelling Knee pain Qualifiers: Chronicity: unspecified Laterality: left Qualified Code(s): M25.562 - Pain in left knee Condition: Stable Critical Care Time: No Referrals: KYLAH SAENZ MD [Primary Care Provider, [facility]] - Follow up/PCP as directed ZE HERNANDEZ DO [ACTIVE STAFF, ORTHOPEDICS] - Follow up/PCP as directed AMY HERNANDEZ MD [NON-STAFF PHY W/O PRIVILEGES, ORTHOPEDICS] - Follow up/PCP as directed Instructions: Knee Sprain (DC), Knee Pain (DC)
--- NOTE | 2024-11-13 16:58 | XRAY ---
Indication: Swelling. Two-dimensional sonogram and color Doppler imaging major venous vessels right leg performed. Comparison: None No thrombus seen in the examined deep venous vessels right leg including greater saphenous vein. Veins demonstrate normal compressibility. Venous waveforms are normal with and without augmentation. Impression: Right leg negative for DVT.
== END 2024-11-13 17:26 | disposition home or self-care (01) ==
LOC: ED 15:57
DX: M79.89 Other specified soft tissue disorders (principal); M25.562 Pain in left knee; I10 Essential (primary) hypertension; Z79.899 Other long term (current) drug therapy